=== PATIENT | female | born 1940 | race Caucasian/White ===

== ENCOUNTER 2020-03-29 21:32 | Inpatient (IN) | payer MEDICARE ==
[~2020-03-29] VITALS: Ht 160 cm; Wt 106.6 kg
[~2020-03-29 21:32] MED LIST: FUROSEMIDE20 M1 ORAL; LISINOPRIL5 MG ORAL; UNABLE TO RECALL
[2020-03-30] VITALS (7 sets, daily range): BP systolic 110–155; BP diastolic 56–85
[2020-03-30 00:33] LABS: APPEARANCE,URINE CLEAR; BILIRUBIN, URINE NEGATIVE (NEGATIVE); GLUCOSE, URINE (UA) NEGATIVE (NEGATIVE); KETONES,URINE NEGATIVE (NEGATIVE); LEUKOCYTE ESTERASE ,URINE 2+ (NEGATIVE); NITRITE,URINE POSITIVE (NEGATIVE); PH,URINE 5 (4.5-8.0); PROTEIN,URINE 1+ (NEGATIVE); UROBILINOGEN,URINE NORMAL MG/DL (0.0-1.0)
[2020-03-30 00:33] LABS: BASOPHILS % (AUTO) 0.6 % (0.0-2.0); EOSINOPHILS % (AUTO) 0.8 % (0.0-3.0); HEMATOCRIT 43.1 % (37.0-47.0); HEMOGLOBIN 14.5 G/DL (12.0-16.0); LYMPHOCYTES % (AUTO) 17.8 % (20.0-45.0); MEAN CORPUSCULAR VOLUME 82 FL (80-99); MONOCYTES % (AUTO) 10.1 % (1.0-10.0); NEUTROPHILS % (AUTO) 70.8 % (45.0-75.0); PLATELET COUNT 187 K/UL (150-450); RED BLOOD COUNT 5.24 M/UL (4.20-5.40); RED CELL DISTRIBUTION WIDTH 13.7 % (11.6-14.8); WHITE BLOOD COUNT 6.4 K/UL (4.8-10.8)
[2020-03-30 00:44] LABS: COLOR,URINE YELLOW
[2020-03-30 00:58] LABS: INR 1.1 (0.9-1.1)
[2020-03-30] MEDS ORDERED: cefTRIAXone 1 GM in NS 55 ML IVPB ONE (01:00)
--- NOTE | 2020-03-30 01:16 | Emergency Room Report ---
History of Present Illness General Chief Complaint: Dyspnea/Respdistress Source: Patient Present Illness HPI Patient is an 80-year-old female presented for increased cough and difficulty with breathing. Patient been sent in from long term. Patient's facility had apparently had increased coronavirus infections recently. Patient had recent positive coronavirus testing. Allergies: Coded Allergies: MORPHINE (Verified Allergy, Unknown, 10/27/19) Uncoded Allergies: TAPE (Allergy, Unknown, 10/27/19) COVID-19 Screening Contact w/high risk pt: Yes Recent Travel to affected area: No Experienced COVID-19 symptoms?: Yes COVID-19 Testing performed ANALYST MARKET INTELLIGENCE: Yes COVID-19 Screening: Positive COVID-19 COVID-19 Testing Source: NUCLEAR EQUIPMENT RESEARCH ENGINEER 03/29/2020 Patient History Past Medical History: see triage record Now: No Reviewed Nursing Documentation: PMH: Agreed; PSxH: Agreed Nursing Documentation-PMH Hx Cardiac Problems: Yes - 2013 bradycardic Hx Hypertension: Yes Hx Pacemaker: Yes Hx Diabetes: Yes Hx Cancer: No Hx Gastrointestinal Problems: Yes - gallstones Hx Neurological Problems: No Physical Exam Vital Signs Date Time Temp Pulse Resp B/P (MAP) Pulse Ox O2 Delivery O2 Flow Rate FiO2 03/29/20 21:35 98.1 98 21 124/73 (90) 94 Nasal Cannula 2.0 General Appearance: alert, Chronically Ill ENT: normal ENT inspection Neck: limited range of motion Respiratory: chest non-tender, rales Cardiovascular #1: normal inspection, no edema Gastrointestinal: normal inspection Musculoskeletal: normal inspection Neurologic: alert, motor strength/tone normal, cyber incident analyst III-XII nml as tested, other - confused Skin: no rash Medical Decision Making Diagnostic Impression: Primary Impression: Coronavirus infection Additional Impression: Pneumonia ER Course Patient presented for increased fever and cough. Differential diagnosis include was not limited to coronavirus infection, pneumonia, CHF among others. Because of complexity of patient's case laboratory tests and imaging studies were ordered. Patient was noted to be febrile as well as having diminished oxygen saturation. Patient had been started on oxygen by EMS. Patient was maintained on oxygen. She was given IV antibiotics. Dr. Adorno was contacted for inpatient management. Labs Test 03/30/20 00:00 03/30/20 00:10 White Blood Count 6.4 K/UL (4.8-10.8) Red Blood Count 5.24 M/UL (4.20-5.40) Hemoglobin 14.5 G/DL (12.0-16.0) Hematocrit 43.1 % (37.0-47.0) Mean Corpuscular Volume 82 FL (80-99) Mean Corpuscular Hemoglobin 27.7 PG (27.0-31.0) Mean Corpuscular Hemoglobin Concent 33.6 G/DL (32.0-36.0) Red Cell Distribution Width 13.7 % (11.6-14.8) Platelet Count 187 K/UL (150-450) Mean Platelet Volume 8.4 FL (6.5-10.1) Neutrophils (%) (Auto) 70.8 % (45.0-75.0) Lymphocytes (%) (Auto) 17.8 % (20.0-45.0) Monocytes (%) (Auto) 10.1 % (1.0-10.0) Eosinophils (%) (Auto) 0.8 % (0.0-3.0) Basophils (%) (Auto) 0.6 % (0.0-2.0) Prothrombin Time 11.6 SEC (9.30-11.50) Prothromb Time International Ratio 1.1 (0.9-1.1) Activated Partial Thromboplast Time 23 SEC (23-33) D-Dimer 2.17 mg/L FEU (0.00-0.49) Lactic Acid Level 1.00 mmol/L (0.4-2.0) Troponin I 0.011 ng/mL (0.000-0.056) Urine Color Yellow Urine Appearance Clear Urine pH 5 (4.5-8.0) Urine Specific [place] 1.015 (1.005-1.035) Urine Protein 1+ (NEGATIVE) Urine Glucose (UA) Negative (NEGATIVE) Urine Ketones Negative (NEGATIVE) Urine Blood 2+ (NEGATIVE) Urine Nitrite Positive (NEGATIVE) Urine Bilirubin Negative (NEGATIVE) Urine Urobilinogen Normal MG/DL (0.0-1.0) Urine Leukocyte Esterase 2+ (NEGATIVE) EKG Diagnostic Results Rate: normal Rhythm: NSR ST Segments: no acute changes Last Vital Signs Date Time Temp Pulse Resp B/P (MAP) Pulse Ox O2 Delivery O2 Flow Rate FiO2 03/30/20 00:00 98 21 Nasal Cannula 2.0 03/30/20 00:00 98.5 117/67 99 Status: unchanged Disposition: ADMITTED INPATIENT Condition: Serious Referrals: Kell Adorno M.D. (PCP) Carlos Galeano MD Mar 30, 2020 01:16
[2020-03-30 05:40] LABS: ALANINE AMINOTRANSFERASE 145 U/L (12-78); ALBUMIN 3.1 G/DL (3.4-5.0); ALBUMIN/GLOBULIN RATIO 0.7 (1.0-2.7); ALKALINE PHOSPHATASE 133 U/L (46-116); ANION GAP 8 mmol/L (5-15); ASPARTATE AMINO TRANSFERASE 128 U/L (15-37); BILIRUBIN,TOTAL 0.5 MG/DL (0.2-1.0); BLOOD UREA NITROGEN 48 mg/dL (7-18); CALCIUM 8.9 MG/DL (8.5-10.1); CARBON DIOXIDE 25 MMOL/L (21-32); CHLORIDE 97 MMOL/L (98-107); CKMB < 0.5 NG/ML (0.0-3.6); CREATINE KINASE 45 U/L (26-308); CREATININE 1.2 MG/DL (0.55-1.30); FERRITIN 493 NG/ML (8-388); LACTATE DEHYDROGENASE 405 U/L (81-234); POTASSIUM 4.8 MMOL/L (3.5-5.1); SODIUM 130 MMOL/L (136-145)
[2020-03-30] MEDS ORDERED: TYLENOL EXTRA500 MG ORAL (06:00)
[2020-03-30] MEDS ORDERED: GABAPENTIN600 MG ORAL (06:00)
[2020-03-30] MEDS ORDERED: LEXAPRO10 MG ORAL (06:00)
[2020-03-30] MEDS ORDERED: MELATONIN3 MG ORAL (06:00)
[2020-03-30] MEDS ORDERED: LIPITOR20 MG ORAL (06:00)
[2020-03-30] MEDS ORDERED: NORCO 5-325 TA1 EAC1 ORAL (06:00)
[2020-03-30] MEDS ORDERED: NOVOLOG100 UNITS1 SUBQ (06:00)
--- NOTE | 2020-03-30 08:43 | Consultation ---
History of Present Illness General Chief Complaint: Dyspnea/Respdistress Reason for Consultation: hyponatremia Present Illness HPI 80 year old female with history of HTN, HLD, Diastolic CHF, obesity, DMII was sent in from SNF facility where she resides for cough, sob and desaturation. She is pleasant, but poor historian. She is alert to self, but not time or place. She does know she lives in a fpc but can't tell me the name. She tells me she has 6 children all out of state. She denies chest pain but complains of sob and cough. Denies palpitations, abdominal pain, n/v or diarrhea. Allergies: Coded Allergies: MORPHINE (Verified Allergy, Unknown, 10/27/19) Uncoded Allergies: TAPE (Allergy, Unknown, 10/27/19) Medication History Scheduled Atorvastatin Calcium* (Lipitor*), 20 MG ORAL BEDTIME, (Reported) Escitalopram Oxalate* (Lexapro*), 10 MG ORAL DAILY, (Reported) Furosemide* (Lasix*), 20 MG ORAL DAILY, (Reported) Gabapentin* (Gabapentin*), 300 MG ORAL THREE TIMES A DAY, (Reported) Insulin Aspart (Novolog Flexpen), 0 SUBQ AC+HS, (Reported) Lisinopril (Lisinopril*), 10 MG ORAL DAILY, (Reported) Scheduled PRN Acetaminophen* (Tylenol Extra Strength*), 500 MG ORAL Q6H PRN for Mild Pain/Temp > 100.5, (Reported) Hydrocodone Bit/Acetaminophen 5-325* ([place] 5-325 Tablet*), 1 TAB ORAL Q4H PRN for For Pain, (Reported) Melatonin (Melatonin), 6 MG ORAL BEDTIME PRN for Insomnia, (Reported) Miscellaneous Medications [Unable To Recall], (Reported) Patient History Healthcare decision maker Resuscitation status Advanced Directive on File Review of Systems All Other Systems: negative except mentioned in HPI Physical Exam General Appearance: no apparent distress Lines, tubes and drains: peripheral HEENT: normocephalic, atraumatic Neck: non-tender, normal alignment Respiratory/Chest: chest wall non-tender, rhonchi - bilaterally Cardiovascular/Chest: normal peripheral pulses, normal rate, regular rhythm Abdomen: normal bowel sounds, non tender Extremities: normal range of motion, non-tender Neurologic: alert, oriented x 3 Last 24 Hour Vital Signs Date Time Temp Pulse Resp B/P (MAP) Pulse Ox O2 Delivery O2 Flow Rate FiO2 03/30/20 05:30 98.4 91 22 126/57 96 Nasal Cannula 2.0 03/30/20 03:00 98.5 92 20 129/56 99 Nasal Cannula 2.0 03/30/20 00:00 98 21 Nasal Cannula 2.0 03/30/20 00:00 98.5 94 20 117/67 99 Nasal Cannula 2.0 03/29/20 21:35 98.1 98 21 124/73 (90) 94 Nasal Cannula 2.0 Laboratory Tests Test 03/30/20 00:00 03/30/20 00:10 White Blood Count 6.4 K/UL (4.8-10.8) Red Blood Count 5.24 M/UL (4.20-5.40) Hemoglobin 14.5 G/DL (12.0-16.0) Hematocrit 43.1 % (37.0-47.0) Mean Corpuscular Volume 82 FL (80-99) Mean Corpuscular Hemoglobin 27.7 PG (27.0-31.0) Mean Corpuscular Hemoglobin Concent 33.6 G/DL (32.0-36.0) Red Cell Distribution Width 13.7 % (11.6-14.8) Platelet Count 187 K/UL (150-450) Mean Platelet Volume 8.4 FL (6.5-10.1) Neutrophils (%) (Auto) 70.8 % (45.0-75.0) Lymphocytes (%) (Auto) 17.8 % (20.0-45.0) L Monocytes (%) (Auto) 10.1 % (1.0-10.0) H Eosinophils (%) (Auto) 0.8 % (0.0-3.0) Basophils (%) (Auto) 0.6 % (0.0-2.0) Prothrombin Time 11.6 SEC (9.30-11.50) H Prothromb Time International Ratio 1.1 (0.9-1.1) Activated Partial Thromboplast Time 23 SEC (23-33) D-Dimer 2.17 mg/L FEU (0.00-0.49) H Sodium Level 130 MMOL/L (136-145) L Potassium Level 4.8 MMOL/L (3.5-5.1) Chloride Level 97 MMOL/L (98-107) L Carbon Dioxide Level 25 MMOL/L (21-32) Anion Gap 8 mmol/L (5-15) Blood Urea Nitrogen 48 mg/dL (7-18) H Creatinine 1.2 MG/DL (0.55-1.30) Estimat Glomerular Filtration Rate 43.0 mL/min (>60) Glucose Level 192 MG/DL (74-106) H Lactic Acid Level 1.00 mmol/L (0.4-2.0) Calcium Level 8.9 MG/DL (8.5-10.1) Ferritin 493 NG/ML (8-388) H Total Bilirubin 0.5 MG/DL (0.2-1.0) Aspartate Amino Transf (AST/SGOT) 128 U/L (15-37) H Alanine Aminotransferase (ALT/SGPT) 145 U/L (12-78) H Alkaline Phosphatase 133 U/L (46-116) H Lactate Dehydrogenase 405 U/L (81-234) H Total Creatine Kinase 45 U/L (26-308) Creatine Kinase MB < 0.5 NG/ML (0.0-3.6) Creatine Kinase MB Relative Index 1.1 Troponin I 0.011 ng/mL (0.000-0.056) C-Reactive Protein, Quantitative 3.9 mg/dL (0.00-0.90) H Pro-B-Type Natriuretic Peptide 564 pg/mL (0-125) H Total Protein 7.8 G/DL (6.4-8.2) Albumin 3.1 G/DL (3.4-5.0) L Globulin 4.7 g/dL Albumin/Globulin Ratio 0.7 (1.0-2.7) L Lipase 313 U/L (73-393) Urine Color Yellow Urine Appearance Clear Urine pH 5 (4.5-8.0) Urine Specific Lane 1.015 (1.005-1.035) Urine Protein 1+ (NEGATIVE) H Urine Glucose (UA) Negative (NEGATIVE) Urine Ketones Negative (NEGATIVE) Urine Blood 2+ (NEGATIVE) H Urine Nitrite Positive (NEGATIVE) H Urine Bilirubin Negative (NEGATIVE) Urine Urobilinogen Normal MG/DL (0.0-1.0) Urine Leukocyte Esterase 2+ (NEGATIVE) H Urine RBC 20-30 /HPF (0 - 2) H Urine WBC 30-40 /HPF (0 - 2) H Urine Squamous Epithelial Cells Few /LPF (NONE/OCC) Urine Bacteria Many /HPF (NONE) H Microbiology Date/Time Source Procedure Growth Status 03/30/20 07:30 Nasopharynx SARS-CoV-2 RdRp Gene Assay - Final Complete Height (Feet): 5 Height (Inches): 3.00 Weight (Pounds): 235 Assessment/Plan Diagnosis [place] I: #Hyponatremia- hypervolumic 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 Mar 30, 2020 08:43
--- NOTE | 2020-03-30 09:45 | History and Physical ---
History of Present Illness General Date patient seen: Mar 30, 2020 Reason for Hospitalization: Dyspnea/Respdistress Present Illness HPI 80 year old female with history of HTN, HLD, Diastolic CHF, obesity, DMII was sent in from SNF facility where she resides for cough, sob and desaturation. She is pleasant, but poor historian. She is alert to self, but not time or place. She does know she lives in a senior care but can't tell me the name. She tells me she has 6 children all out of state. She denies chest pain but complains of sob and cough. Denies palpitations, abdominal pain, n/v or diarrhea. Allergies: Coded Allergies: MORPHINE (Verified Allergy, Unknown, 10/27/19) Uncoded Allergies: TAPE (Allergy, Unknown, 10/27/19) COVID-19 Screening Contact w/high risk pt: Yes Recent Travel to affected area: No Experienced COVID-19 symptoms?: Yes Coronavirus symptoms experienc: Shortness of Breath Medication History Scheduled Atorvastatin Calcium* (Lipitor*), 20 MG ORAL BEDTIME, (Reported) Escitalopram Oxalate* (Lexapro*), 10 MG ORAL DAILY, (Reported) Furosemide* (Lasix*), 20 MG ORAL DAILY, (Reported) Gabapentin* (Gabapentin*), 300 MG ORAL THREE TIMES A DAY, (Reported) Insulin Aspart (Novolog Flexpen), 0 SUBQ AC+HS, (Reported) Lisinopril (Lisinopril*), 10 MG ORAL DAILY, (Reported) Scheduled PRN Acetaminophen* (Tylenol Extra Strength*), 500 MG ORAL Q6H PRN for Mild Pain/Temp > 100.5, (Reported) Hydrocodone Bit/Acetaminophen 5-325* ([place] 5-325 Tablet*), 1 TAB ORAL Q4H PRN for For Pain, (Reported) Melatonin (Melatonin), 6 MG ORAL BEDTIME PRN for Insomnia, (Reported) Miscellaneous Medications [Unable To Recall], (Reported) Patient History Limited by: medical condition History Provided By: Patient, Medical Record, EMS Healthcare decision maker Resuscitation status Advanced Directive on File Past Medical/Surgical History Past Medical/Surgical History: (1) Pneumonia (2) Coronavirus infection (3) COVID-19 Review of Systems Constitutional: Denies: no symptoms, see HPI, chills, sweats, fever, malaise, weakness, other Eye: Denies: no symptoms, see HPI, eye pain, blurred vision, tearing, double vision, nose pain, nose congestion, acuity changes, discharge, other ENT: Denies: no symptoms, see HPI, ear pain, ear discharge, nose pain, nose congestion, throat pain, throat swelling, mouth pain, hearing loss, nasal discharge, other Respiratory: Reports: cough, shortness of breath Cardiovascular: Denies: no symptoms, see HPI, chest pain, edema, palpitations, syncope, PND, other Gastrointestinal: Denies: no symptoms, see HPI, abdominal pain, constipation, diarrhea, nausea, vomiting, melena, hematemesis, other Genitourinary: Denies: no symptoms, see HPI, discharge, dysuria, frequency, hematuria, pain, retention, incontinence, urgency, vag bleed/dc, other Musculoskeletal: Denies: no symptoms, see HPI, back pain, gout, joint pain, joint swelling, muscle pain, muscle stiffness, other Skin: Denies: no symptoms, see HPI, rash, change in color, change in hair/nails, dryness, lesions, other Psychiatric: Denies: no symptoms, see HPI, prior hx, anxiety, depressed feelings, emotional problems, SI, HI, hallucinations, other Neurological: Denies: no symptoms, see HPI, headache, numbness, paresthesia, seizure, tingling, tremors, focal weakness, syncope, dizziness, other Endocrine: Denies: no symptoms, see HPI, excessive sweating, flushing, intolerance to temperature, increased thirst, increased urine, unexplained weight loss, other Hematologic/Lymphatic: Denies: no symptoms, see HPI, anemia, blood clots, easy bleeding, easy bruising, swollen glands, diathesis, other Physical Exam General Appearance: no apparent distress, alert Lines, tubes and drains: peripheral HEENT: normocephalic, atraumatic, anicteric, mucous membranes moist, PERRL, EOMI Neck: non-tender, normal alignment, supple Respiratory/Chest: chest wall non-tender, lungs clear, normal breath sounds, no respiratory distress Cardiovascular/Chest: normal peripheral pulses Abdomen: normal bowel sounds, non tender, soft Extremities: normal range of motion, non-tender, moderate edema Skin Exam: normal pigmentation Neurologic: facilities coordinator II-XII grossly normal, no motor/sensory deficits, abnormal gait, alert, responsive Last 24 Hour Vital Signs Date Time Temp Pulse Resp B/P (MAP) Pulse Ox O2 Delivery O2 Flow Rate FiO2 03/30/20 08:49 98.8 80 20 131/72 92 Nasal Cannula 2.0 03/30/20 05:30 98.4 91 22 126/57 96 Nasal Cannula 2.0 03/30/20 03:00 98.5 92 20 129/56 99 Nasal Cannula 2.0 03/30/20 00:00 98 21 Nasal Cannula 2.0 03/30/20 00:00 98.5 94 20 117/67 99 Nasal Cannula 2.0 03/29/20 21:35 98.1 98 21 124/73 (90) 94 Nasal Cannula 2.0 Laboratory Tests Test 03/30/20 00:00 03/30/20 00:10 White Blood Count 6.4 K/UL (4.8-10.8) Red Blood Count 5.24 M/UL (4.20-5.40) Hemoglobin 14.5 G/DL (12.0-16.0) Hematocrit 43.1 % (37.0-47.0) Mean Corpuscular Volume 82 FL (80-99) Mean Corpuscular Hemoglobin 27.7 PG (27.0-31.0) Mean Corpuscular Hemoglobin Concent 33.6 G/DL (32.0-36.0) Red Cell Distribution Width 13.7 % (11.6-14.8) Platelet Count 187 K/UL (150-450) Mean Platelet Volume 8.4 FL (6.5-10.1) Neutrophils (%) (Auto) 70.8 % (45.0-75.0) Lymphocytes (%) (Auto) 17.8 % (20.0-45.0) L Monocytes (%) (Auto) 10.1 % (1.0-10.0) H Eosinophils (%) (Auto) 0.8 % (0.0-3.0) Basophils (%) (Auto) 0.6 % (0.0-2.0) Prothrombin Time 11.6 SEC (9.30-11.50) H Prothromb Time International Ratio 1.1 (0.9-1.1) Activated Partial Thromboplast Time 23 SEC (23-33) D-Dimer 2.17 mg/L FEU (0.00-0.49) H Sodium Level 130 MMOL/L (136-145) L Potassium Level 4.8 MMOL/L (3.5-5.1) Chloride Level 97 MMOL/L (98-107) L Carbon Dioxide Level 25 MMOL/L (21-32) Anion Gap 8 mmol/L (5-15) Blood Urea Nitrogen 48 mg/dL (7-18) H Creatinine 1.2 MG/DL (0.55-1.30) Estimat Glomerular Filtration Rate 43.0 mL/min (>60) Glucose Level 192 MG/DL (74-106) H Lactic Acid Level 1.00 mmol/L (0.4-2.0) Calcium Level 8.9 MG/DL (8.5-10.1) Ferritin 493 NG/ML (8-388) H Total Bilirubin 0.5 MG/DL (0.2-1.0) Aspartate Amino Transf (AST/SGOT) 128 U/L (15-37) H Alanine Aminotransferase (ALT/SGPT) 145 U/L (12-78) H Alkaline Phosphatase 133 U/L (46-116) H Lactate Dehydrogenase 405 U/L (81-234) H Total Creatine Kinase 45 U/L (26-308) Creatine Kinase MB < 0.5 NG/ML (0.0-3.6) Creatine Kinase MB Relative Index 1.1 Troponin I 0.011 ng/mL (0.000-0.056) C-Reactive Protein, Quantitative 3.9 mg/dL (0.00-0.90) H Pro-B-Type Natriuretic Peptide 564 pg/mL (0-125) H Total Protein 7.8 G/DL (6.4-8.2) Albumin 3.1 G/DL (3.4-5.0) L Globulin 4.7 g/dL Albumin/Globulin Ratio 0.7 (1.0-2.7) L Lipase 313 U/L (73-393) Urine Color Yellow Urine Appearance Clear Urine pH 5 (4.5-8.0) Urine Specific [place] 1.015 (1.005-1.035) Urine Protein 1+ (NEGATIVE) H Urine Glucose (UA) Negative (NEGATIVE) Urine Ketones Negative (NEGATIVE) Urine Blood 2+ (NEGATIVE) H Urine Nitrite Positive (NEGATIVE) H Urine Bilirubin Negative (NEGATIVE) Urine Urobilinogen Normal MG/DL (0.0-1.0) Urine Leukocyte Esterase 2+ (NEGATIVE) H Urine RBC 20-30 /HPF (0 - 2) H Urine WBC 30-40 /HPF (0 - 2) H Urine Squamous Epithelial Cells Few /LPF (NONE/OCC) Urine Bacteria Many /HPF (NONE) H Microbiology Date/Time Source Procedure Growth Status 03/30/20 07:30 Nasopharynx SARS-CoV-2 RdRp Gene Assay - Final Complete Height (Feet): 5 Height (Inches): 3.00 Weight (Pounds): 235 Medications Current Medications Medications (Trade) Dose Ordered Sig/Tiburcio Route PRN Reason Start Time Stop Time Status Last Admin Dose Admin Albuterol/ Ipratropium (Combivent Respimat) 1 puff Q6HR INH 03/30/20 12:00 04/29/20 11:59 Heparin Sodium (Porcine) (Heparin 5000 units/ml) 5,000 units EVERY 12 HOURS SUBQ 03/30/20 21:00 05/14/20 20:59 Assessment/Plan Status: stable Assessment/Plan: A/ 1.Acute hypoxic respiratory failure 2.Covid 19 Pneumonia 3. Acute on chronic diastolic CHF 4.UTI 5.Elevated LFTs 6.Hyponatremia 7.MARIELY vs MARIELY on CKD P/ -Admit to telemetry- contact plus isolation -O2 via NC to keep sats >94% -Dexa and remdisivr per ID -Ceftriaxone for UTI- follow up urine cultures -Nephrology consult -Pulmonary consult -ID consult -IV lasix 20 mg BID, monitor volume status -follow up cxr -Hold lipitor for elevated AST/ALT I spent 75 minutes on this encounter. > 50% spent on counselling and care coordination. Plan of care d/w patient and consultants. I will locate patient's family to update them Mayito Peña M.D. Mar 30, 2020 09:45
[2020-03-30] MEDS: Lisinopril 10mg tab ORAL SCH (11:16)
[2020-03-30] MEDS ORDERED: NovoLOG Insulin Flexpen SUBQ SCH ×4 (11:30→16:50)
[2020-03-30] MEDS: NovoLOG Insulin Flexpen SUBQ SCH ×3 (11:41→21:39)
[2020-03-30] MEDS ORDERED: Levemir Flexpen SUBQ SCH (11:55)
[2020-03-30] MEDS ORDERED: Albuterol/Ipratropium 3ml neb HHN SCH (13:00)
--- NOTE | 2020-03-30 15:51 | Cardiac Electrophysiology PN ---
Subjective Subjective DW RN to get the info re patients pacer brand and implant from [facility] Objective Last 24 Hour Vital Signs Date Time Temp Pulse Resp B/P (MAP) Pulse Ox O2 Delivery O2 Flow Rate FiO2 03/30/20 12:00 97.5 101 20 135/76 (95) 98 03/30/20 12:00 85 03/30/20 11:16 155/85 03/30/20 09:28 Nasal Cannula 2.0 03/30/20 09:00 97.5 100 20 155/85 (108) 98 03/30/20 08:49 98.8 80 20 131/72 92 Nasal Cannula 2.0 03/30/20 05:30 98.4 91 22 126/57 96 Nasal Cannula 2.0 03/30/20 03:00 98.5 92 20 129/56 99 Nasal Cannula 2.0 03/30/20 00:00 98 21 Nasal Cannula 2.0 03/30/20 00:00 98.5 94 20 117/67 99 Nasal Cannula 2.0 03/29/20 21:35 98.1 98 21 124/73 (90) 94 Nasal Cannula 2.0 Laboratory Tests Test 03/30/20 00:00 03/30/20 00:10 03/30/20 11:18 03/30/20 11:33 White Blood Count 6.4 K/UL (4.8-10.8) Red Blood Count 5.24 M/UL (4.20-5.40) Hemoglobin 14.5 G/DL (12.0-16.0) Hematocrit 43.1 % (37.0-47.0) Mean Corpuscular Volume 82 FL (80-99) Mean Corpuscular Hemoglobin 27.7 PG (27.0-31.0) Mean Corpuscular Hemoglobin Concent 33.6 G/DL (32.0-36.0) Red Cell Distribution Width 13.7 % (11.6-14.8) Platelet Count 187 K/UL (150-450) Mean Platelet Volume 8.4 FL (6.5-10.1) Neutrophils (%) (Auto) 70.8 % (45.0-75.0) Lymphocytes (%) (Auto) 17.8 % (20.0-45.0) L Monocytes (%) (Auto) 10.1 % (1.0-10.0) H Eosinophils (%) (Auto) 0.8 % (0.0-3.0) Basophils (%) (Auto) 0.6 % (0.0-2.0) Prothrombin Time 11.6 SEC (9.30-11.50) H Prothromb Time International Ratio 1.1 (0.9-1.1) Activated Partial Thromboplast Time 23 SEC (23-33) D-Dimer 2.17 mg/L FEU (0.00-0.49) H Sodium Level 130 MMOL/L (136-145) L Potassium Level 4.8 MMOL/L (3.5-5.1) Chloride Level 97 MMOL/L (98-107) L Carbon Dioxide Level 25 MMOL/L (21-32) Anion Gap 8 mmol/L (5-15) Blood Urea Nitrogen 48 mg/dL (7-18) H Creatinine 1.2 MG/DL (0.55-1.30) Estimat Glomerular Filtration Rate 43.0 mL/min (>60) Glucose Level 192 MG/DL (74-106) H Lactic Acid Level 1.00 mmol/L (0.4-2.0) Calcium Level 8.9 MG/DL (8.5-10.1) Ferritin 493 NG/ML (8-388) H Total Bilirubin 0.5 MG/DL (0.2-1.0) Aspartate Amino Transf (AST/SGOT) 128 U/L (15-37) H Alanine Aminotransferase (ALT/SGPT) 145 U/L (12-78) H Alkaline Phosphatase 133 U/L (46-116) H Lactate Dehydrogenase 405 U/L (81-234) H Total Creatine Kinase 45 U/L (26-308) Creatine Kinase MB < 0.5 NG/ML (0.0-3.6) Creatine Kinase MB Relative Index 1.1 Troponin I 0.011 ng/mL (0.000-0.056) C-Reactive Protein, Quantitative 3.9 mg/dL (0.00-0.90) H Pro-B-Type Natriuretic Peptide 564 pg/mL (0-125) H Total Protein 7.8 G/DL (6.4-8.2) Albumin 3.1 G/DL (3.4-5.0) L Globulin 4.7 g/dL Albumin/Globulin Ratio 0.7 (1.0-2.7) L Lipase 313 U/L (73-393) Urine Color Yellow Urine Appearance Clear Urine pH 5 (4.5-8.0) Urine Specific [place] 1.015 (1.005-1.035) Urine Protein 1+ (NEGATIVE) H Urine Glucose (UA) Negative (NEGATIVE) Urine Ketones Negative (NEGATIVE) Urine Blood 2+ (NEGATIVE) H Urine Nitrite Positive (NEGATIVE) H Urine Bilirubin Negative (NEGATIVE) Urine Urobilinogen Normal MG/DL (0.0-1.0) Urine Leukocyte Esterase 2+ (NEGATIVE) H Urine RBC 20-30 /HPF (0 - 2) H Urine WBC 30-40 /HPF (0 - 2) H Urine Squamous Epithelial Cells Few /LPF (NONE/OCC) Urine Bacteria Many /HPF (NONE) H POC Whole Blood Glucose 434 MG/DL (74-106) H 468 MG/DL (74-106) H Test 03/30/20 11:51 03/30/20 12:52 03/30/20 13:54 POC Whole Blood Glucose 489 MG/DL (74-106) H 489 MG/DL (74-106) H Pending Microbiology Date/Time Source Procedure Growth Status 03/30/20 07:30 Nasopharynx SARS-CoV-2 RdRp Gene Assay - Final Complete Rafiq Cote MD Mar 30, 2020 15:51
--- NOTE | 2020-03-30 16:15 | Consultation ---
DATE OF CONSULTATION: 03/30/2020 PULMONARY CONSULTATION REFERRING PHYSICIAN: Kell Adorno M.D. REASON FOR CONSULTATION: Cough and shortness of breath. HISTORY OF PRESENT ILLNESS: This is an 80[facility]-old [facility] who is a very poor historian. She has a history of hypertension, hyperlipidemia, heart failure, obesity, and diabetes mellitus. She was sent in from the facility with hypoxemia and desaturation. The patient was seen and evaluated in the emergency room. She was noted to be initially hypoxic per documentation. However, in the ER, she was 100% on 2 L oxygen. The patient underwent imaging studies, which per ER report were abnormal, although I have not been able to review these records myself. The patient is currently admitted to the hospital for subsequent management and care. PAST HISTORY: Hyperlipidemia, psych disorder. MEDICATIONS: Lexapro, Lasix, gabapentin, insulin, and lisinopril. ALLERGIES: Morphine and tape. REVIEW OF SYSTEMS: Unreliable. PHYSICAL EXAMINATION: GENERAL: An elderly female. HEENT: Unremarkable. LUNGS: Clear breath sounds bilaterally. ABDOMEN: Soft. There is no edema. NEUROLOGIC: Nonfocal. VITAL SIGNS: Blood pressure is 120/50, heart rate 94, respirations 20. She is afebrile. O2 sat 97% on 2 L oxygen. LABORATORY DATA: Lab testing shows normal CBC and BMP except for the glucose of 434. She has elevated AST and ALT, alkaline phosphatase being 133, LDH 405. CRP 3.9. Coags notable for D-dimer of 2.1. Urinalysis shows multiple pus cells. Her COVID-19 rapid gene assay is positive. IMPRESSION: 1. COVID-19 pneumonia. 2. History of hypoxemia. 3. Diabetes mellitus. 4. Hypertension. 5. Hyperlipidemia. 6. Asthma. DISCUSSION: Agree with admission and care at this time. I will defer the use of remdesivir to ID specialist. She is notably on Combivent, which I will continue, as well as home medications. DVT prophylaxis with heparin subcu. Hold off on steroids given her diabetes, although I note she has received a single dose yesterday. Currently, with minimal hypoxemia, I will hold off on steroids. Defer use of remdesivir to ID. We will follow. Lorne Hightower M.D. DR: MARCELL JOB#: [id number] CC:
[2020-03-30] MEDS: Levemir Flexpen SUBQ SCH (16:18)
--- NOTE | 2020-03-30 18:15 | Consultation ---
DATE OF CONSULTATION: 03/30/2020 CARDIOLOGY CONSULTATION REFERRING PHYSICIAN: Kell Adorno M.D. REASON FOR CONSULTATION: Management of hypertension and congestive heart failure. HISTORY OF PRESENT ILLNESS: The patient is an 80-year-old lady with history of hypertension, diabetes, hyperlipidemia, diastolic congestive heart failure, obesity, who was sent from a long-term facility for cough and shortness of breath and desaturation. The patient is alert to self, but not to place or time, and she is a very poor historian. She has . The patient does not have any chest pain, but has shortness of breath and cough. The patient was admitted for COVID-19 and a cardiology consultation was obtained for further evaluation and management. REVIEW OF SYSTEMS: Negative other than what was mentioned in history of present illness. PAST MEDICAL HISTORY: As mentioned above. FAMILY HISTORY: Noncontributory. SOCIAL HISTORY: She lives in a shelter. Does not smoke or drink alcohol. PHYSICAL EXAMINATION: VITAL SIGNS: Blood pressure 137/56, pulse is 101, respirations 18, temperature 97.5. HEAD AND NECK: Some mild JVD. LUNGS: Coarse rhonchi. CARDIOVASCULAR: Regular S1 and S2 with no gallop or murmur. ABDOMEN: Soft. EXTREMITIES: Mild to moderate edema. LABORATORY AND DIAGNOSTIC DATA: Labs show white count of 6.4, hematocrit 14.1, hematocrit 43.1, platelet count 187. Sodium is 130, potassium is 4.8, BUN of 48, creatinine 1.2, and glucose of 192. Troponin is negative. Ferritin is 493. LDH is 405. BNP is 564. ASSESSMENT AND PLAN: 1. Congestive heart failure due to diastolic dysfunction with BNP of 564. I will add Lasix 20 mg IV b.i.d. We will get an echocardiogram to evaluate for ejection fraction and wall motion abnormality. 2. Hypertension, on Lasix 20 mg IV b.i.d. and lisinopril 10 mg daily and p.r.n. hydralazine. 3. COVID pneumonia, on dexamethasone. 4. Diabetes, on insulin. 5. Hyperlipidemia, on Lipitor. Thank you very much for allowing me to participate in the care of this patient. Please do not hesitate to contact me for any questions regarding my evaluation. Rafiq Cote M.D. DR: [place] JOB#: [id number] CC:
--- NOTE | 2020-03-30 18:36 | Infectious Diseases Prog Note ---
Assessment/Plan Assessment/Plan Full consult dictated: A) 1) uti 2) covid-19 infection 3) ? hypoxic - saturations stable on 2 liters, ? chf as cause (elevated bnp) 4) pmh noted 5) allergies - morphine, tape P) 1) ceftriaxone 2) monitor closely and hypoxia worsens then consider steroids and remdesivir 3) d/w Dr. Ghosh 4) monitor labs and chest x-ray, crp ordered 5) thank you Subjective Allergies: Coded Allergies: MORPHINE (Verified Allergy, Unknown, 10/27/19) Uncoded Allergies: TAPE (Allergy, Unknown, 10/27/19) Objective Last 24 Hour Vital Signs Date Time Temp Pulse Resp B/P (MAP) Pulse Ox O2 Delivery O2 Flow Rate FiO2 03/30/20 16:00 98.2 83 20 110/67 (81) 94 03/30/20 16:00 82 03/30/20 12:00 97.5 101 20 135/76 (95) 98 03/30/20 12:00 85 03/30/20 11:16 155/85 03/30/20 09:28 Nasal Cannula 2.0 03/30/20 09:00 97.5 100 20 155/85 (108) 98 03/30/20 08:49 98.8 80 20 131/72 92 Nasal Cannula 2.0 03/30/20 05:30 98.4 91 22 126/57 96 Nasal Cannula 2.0 03/30/20 03:00 98.5 92 20 129/56 99 Nasal Cannula 2.0 03/30/20 00:00 98 21 Nasal Cannula 2.0 03/30/20 00:00 98.5 94 20 117/67 99 Nasal Cannula 2.0 03/29/20 21:35 98.1 98 21 124/73 (90) 94 Nasal Cannula 2.0 Height (Feet): 5 Height (Inches): 3.00 Weight (Pounds): 235 Microbiology Date/Time Source Procedure Growth Status 03/30/20 07:30 Nasopharynx SARS-CoV-2 RdRp Gene Assay - Final Complete Laboratory Tests Test 03/30/20 00:00 03/30/20 00:10 03/30/20 11:18 03/30/20 11:33 White Blood Count 6.4 K/UL (4.8-10.8) Red Blood Count 5.24 M/UL (4.20-5.40) Hemoglobin 14.5 G/DL (12.0-16.0) Hematocrit 43.1 % (37.0-47.0) Mean Corpuscular Volume 82 FL (80-99) Mean Corpuscular Hemoglobin 27.7 PG (27.0-31.0) Mean Corpuscular Hemoglobin Concent 33.6 G/DL (32.0-36.0) Red Cell Distribution Width 13.7 % (11.6-14.8) Platelet Count 187 K/UL (150-450) Mean Platelet Volume 8.4 FL (6.5-10.1) Neutrophils (%) (Auto) 70.8 % (45.0-75.0) Lymphocytes (%) (Auto) 17.8 % (20.0-45.0) L Monocytes (%) (Auto) 10.1 % (1.0-10.0) H Eosinophils (%) (Auto) 0.8 % (0.0-3.0) Basophils (%) (Auto) 0.6 % (0.0-2.0) Prothrombin Time 11.6 SEC (9.30-11.50) H Prothromb Time International Ratio 1.1 (0.9-1.1) Activated Partial Thromboplast Time 23 SEC (23-33) D-Dimer 2.17 mg/L FEU (0.00-0.49) H Sodium Level 130 MMOL/L (136-145) L Potassium Level 4.8 MMOL/L (3.5-5.1) Chloride Level 97 MMOL/L (98-107) L Carbon Dioxide Level 25 MMOL/L (21-32) Anion Gap 8 mmol/L (5-15) Blood Urea Nitrogen 48 mg/dL (7-18) H Creatinine 1.2 MG/DL (0.55-1.30) Estimat Glomerular Filtration Rate 43.0 mL/min (>60) Glucose Level 192 MG/DL (74-106) H Lactic Acid Level 1.00 mmol/L (0.4-2.0) Calcium Level 8.9 MG/DL (8.5-10.1) Ferritin 493 NG/ML (8-388) H Total Bilirubin 0.5 MG/DL (0.2-1.0) Aspartate Amino Transf (AST/SGOT) 128 U/L (15-37) H Alanine Aminotransferase (ALT/SGPT) 145 U/L (12-78) H Alkaline Phosphatase 133 U/L (46-116) H Lactate Dehydrogenase 405 U/L (81-234) H Total Creatine Kinase 45 U/L (26-308) Creatine Kinase MB < 0.5 NG/ML (0.0-3.6) Creatine Kinase MB Relative Index 1.1 Troponin I 0.011 ng/mL (0.000-0.056) C-Reactive Protein, Quantitative 3.9 mg/dL (0.00-0.90) H Pro-B-Type Natriuretic Peptide 564 pg/mL (0-125) H Total Protein 7.8 G/DL (6.4-8.2) Albumin 3.1 G/DL (3.4-5.0) L Globulin 4.7 g/dL Albumin/Globulin Ratio 0.7 (1.0-2.7) L Lipase 313 U/L (73-393) Urine Color Yellow Urine Appearance Clear Urine pH 5 (4.5-8.0) Urine Specific [place] 1.015 (1.005-1.035) Urine Protein 1+ (NEGATIVE) H Urine Glucose (UA) Negative (NEGATIVE) Urine Ketones Negative (NEGATIVE) Urine Blood 2+ (NEGATIVE) H Urine Nitrite Positive (NEGATIVE) H Urine Bilirubin Negative (NEGATIVE) Urine Urobilinogen Normal MG/DL (0.0-1.0) Urine Leukocyte Esterase 2+ (NEGATIVE) H Urine RBC 20-30 /HPF (0 - 2) H Urine WBC 30-40 /HPF (0 - 2) H Urine Squamous Epithelial Cells Few /LPF (NONE/OCC) Urine Bacteria Many /HPF (NONE) H POC Whole Blood Glucose 434 MG/DL (74-106) H 468 MG/DL (74-106) H Test 03/30/20 11:51 03/30/20 12:52 03/30/20 13:54 03/30/20 16:03 POC Whole Blood Glucose 489 MG/DL (74-106) H 489 MG/DL (74-106) H Pending 394 MG/DL (74-106) H Test 03/30/20 17:37 POC Whole Blood Glucose 324 MG/DL (74-106) H Current Medications Medications (Trade) Dose Ordered Sig/Tiburcio Route PRN Reason Start Time Stop Time Status Last Admin Dose Admin Acetaminophen (Tylenol) 650 mg Q6H PRN ORAL For Pain 03/30/20 10:30 04/29/20 10:29 Albuterol/ Ipratropium (Combivent Respimat) 1 puff Q6HR INH 03/30/20 12:00 04/29/20 11:59 03/30/20 17:32 Dextrose (Dextrose 50%) 25 ml Q30M PRN IV Hypoglycemia 03/30/20 10:30 06/28/20 10:29 Dextrose (Dextrose 50%) 50 ml Q30M PRN IV Hypoglycemia 03/30/20 10:30 06/28/20 10:29 Escitalopram Oxalate (Lexapro) 10 mg DAILY ORAL 03/30/20 10:30 04/29/20 10:29 03/30/20 11:16 Furosemide (Lasix) 20 mg EVERY 12 HOURS IV 03/30/20 11:15 04/29/20 11:14 03/30/20 11:23 Gabapentin (Neurontin) 300 mg THREE TIMES A DAY ORAL 03/30/20 13:00 04/29/20 12:59 03/30/20 17:32 Heparin Sodium (Porcine) (Heparin 5000 units/ml) 5,000 units EVERY 12 HOURS SUBQ 03/30/20 21:00 05/14/20 20:59 Hydralazine HCl (Apresoline) 10 mg Q4H PRN IV For High Blood Pressure 03/30/20 10:45 06/28/20 10:44 Insulin Aspart (NovoLOG) BEFORE MEALS AND HS SUBQ 03/30/20 11:30 06/28/20 11:29 03/30/20 16:18 Insulin Detemir (Levemir) 10 units DAILY SUBQ 03/30/20 16:00 06/28/20 15:59 03/30/20 16:18 Lisinopril (ZestriL) 10 mg DAILY ORAL 03/30/20 10:30 04/29/20 10:29 03/30/20 11:16 Avelino Puckett MD Mar 30, 2020 18:36
--- NOTE | 2020-03-30 19:10 | Diagnostic Imaging Report ---
Indication: Shortness of breath Technique: One view of the chest Comparison: 10/27/2019 Findings: The heart is mildly enlarged. Left chest pacemaker again demonstrated. There is bilateral predominantly perihilar interstitial and airspace disease, likely edema, infiltrates also possible. The left lateral hemidiaphragm is obscured, pleural fluid likely. Impression: Cardiomegaly Bilateral infiltrates versus edema Probable left pleural effusion
--- NOTE | 2020-03-30 19:49 | Consultation ---
History of Present Illness General Date patient seen: Mar 30, 2020 Reason for Hospitalization: Dyspnea/Respdistress Present Illness HPI 80F recent history of COVID infection presented with cough and respiratory insufficiency admitted for care and management. on admission noted to have abnormal lfts. surgery called to evaluate and assist with care. abd pain intermittent with grimace upon palpation. no n/v//fc. +flatus and BM Allergies: Coded Allergies: MORPHINE (Verified Allergy, Unknown, 10/27/19) Uncoded Allergies: TAPE (Allergy, Unknown, 10/27/19) COVID-19 Screening Contact w/high risk pt: Yes Recent Travel to affected area: No Experienced COVID-19 symptoms?: Yes Coronavirus symptoms experienc: Fatigue, Runny Nose, Diarrhea Medication History Scheduled Atorvastatin Calcium* (Lipitor*), 20 MG ORAL BEDTIME, (Reported) Escitalopram Oxalate* (Lexapro*), 10 MG ORAL DAILY, (Reported) Furosemide* (Lasix*), 20 MG ORAL DAILY, (Reported) Gabapentin* (Gabapentin*), 300 MG ORAL THREE TIMES A DAY, (Reported) Insulin Aspart (Novolog Flexpen), 0 SUBQ AC+HS, (Reported) Lisinopril (Lisinopril*), 10 MG ORAL DAILY, (Reported) Scheduled PRN Acetaminophen* (Tylenol Extra Strength*), 500 MG ORAL Q6H PRN for Mild Pain/Temp > 100.5, (Reported) Hydrocodone Bit/Acetaminophen 5-325* (Left Hand 5-325 Tablet*), 1 TAB ORAL Q4H PRN for For Pain, (Reported) Melatonin (Melatonin), 6 MG ORAL BEDTIME PRN for Insomnia, (Reported) Miscellaneous Medications [Unable To Recall], (Reported) Patient History Limited by: medical condition History Provided By: Medical Record, PMD Healthcare decision maker Resuscitation status Advanced Directive on File Past Medical/Surgical History Past Medical/Surgical History: (1) Abnormal LFTs (2) Pneumonia (3) Coronavirus infection (4) COVID-19 Review of Systems Review of Symptoms General ROS: no weight loss or fever Psychological ROS: no depression or mood changes, no memory loss Ophthalmic ROS: no visual changes or eye irritation ENT ROS: no nasal congestion, hearing loss, dizziness Allergy and Immunology ROS: no allergic symptoms or urticaria Hematological and Lymphatic ROS: no swollen glands, unusual bleeding or bruising Endocrine ROS: no polyuria, polydipsia, weight changes, temperature intolerance Respiratory ROS: no cough, shortness of breath, or wheezing Cardiovascular ROS: no chest pain or dyspnea on exertion Gastrointestinal ROS: denies abdominal pain, bright red blood in stool. Musculoskeletal ROS: no myalgias or arthralgias Neurological ROS: no TIA or stroke symptoms Dermatological ROS: no new or changing skin lesions, rashes or pruritis Physical Exam Physical Exam General appearance: alert, cooperative, no distress, appears stated age Head: Normocephalic, without obvious abnormality, atraumatic Eyes: conjunctivae/corneas clear. PERRL, EOM's intact. Fundi benign Throat: Lips, mucosa, and tongue normal. Teeth and gums normal Neck: supple, symmetrical, trachea midline, no adenopathy, thyroid: not enlarged, symmetric, no tenderness/mass/nodules, no carotid bruit and no JVD Lungs: clear to auscultation bilaterally Heart: regular rate and rhythm, S1, S2 normal, no murmur, click, rub or gallop Abdomen: soft, non-tender. Bowel sounds normal. No masses, no organomegaly Extremities: extremities normal, atraumatic, no cyanosis or edema Pulses: 2+ and symmetric Skin: Skin color, texture, turgor normal. No rashes or lesions Neurologic: Grossly normal Last 24 Hour Vital Signs Date Time Temp Pulse Resp B/P (MAP) Pulse Ox O2 Delivery O2 Flow Rate FiO2 03/30/20 16:00 98.2 83 20 110/67 (81) 94 03/30/20 16:00 82 03/30/20 12:00 97.5 101 20 135/76 (95) 98 03/30/20 12:00 85 03/30/20 11:16 155/85 03/30/20 09:28 Nasal Cannula 2.0 03/30/20 09:00 97.5 100 20 155/85 (108) 98 03/30/20 08:49 98.8 80 20 131/72 92 Nasal Cannula 2.0 03/30/20 05:30 98.4 91 22 126/57 96 Nasal Cannula 2.0 03/30/20 03:00 98.5 92 20 129/56 99 Nasal Cannula 2.0 03/30/20 00:00 98 21 Nasal Cannula 2.0 03/30/20 00:00 98.5 94 20 117/67 99 Nasal Cannula 2.0 03/29/20 21:35 98.1 98 21 124/73 (90) 94 Nasal Cannula 2.0 Laboratory Tests Test 03/30/20 00:00 03/30/20 00:10 03/30/20 11:18 03/30/20 11:33 White Blood Count 6.4 K/UL (4.8-10.8) Red Blood Count 5.24 M/UL (4.20-5.40) Hemoglobin 14.5 G/DL (12.0-16.0) Hematocrit 43.1 % (37.0-47.0) Mean Corpuscular Volume 82 FL (80-99) Mean Corpuscular Hemoglobin 27.7 PG (27.0-31.0) Mean Corpuscular Hemoglobin Concent 33.6 G/DL (32.0-36.0) Red Cell Distribution Width 13.7 % (11.6-14.8) Platelet Count 187 K/UL (150-450) Mean Platelet Volume 8.4 FL (6.5-10.1) Neutrophils (%) (Auto) 70.8 % (45.0-75.0) Lymphocytes (%) (Auto) 17.8 % (20.0-45.0) L Monocytes (%) (Auto) 10.1 % (1.0-10.0) H Eosinophils (%) (Auto) 0.8 % (0.0-3.0) Basophils (%) (Auto) 0.6 % (0.0-2.0) Prothrombin Time 11.6 SEC (9.30-11.50) H Prothromb Time International Ratio 1.1 (0.9-1.1) Activated Partial Thromboplast Time 23 SEC (23-33) D-Dimer 2.17 mg/L FEU (0.00-0.49) H Sodium Level 130 MMOL/L (136-145) L Potassium Level 4.8 MMOL/L (3.5-5.1) Chloride Level 97 MMOL/L (98-107) L Carbon Dioxide Level 25 MMOL/L (21-32) Anion Gap 8 mmol/L (5-15) Blood Urea Nitrogen 48 mg/dL (7-18) H Creatinine 1.2 MG/DL (0.55-1.30) Estimat Glomerular Filtration Rate 43.0 mL/min (>60) Glucose Level 192 MG/DL (74-106) H Lactic Acid Level 1.00 mmol/L (0.4-2.0) Calcium Level 8.9 MG/DL (8.5-10.1) Ferritin 493 NG/ML (8-388) H Total Bilirubin 0.5 MG/DL (0.2-1.0) Aspartate Amino Transf (AST/SGOT) 128 U/L (15-37) H Alanine Aminotransferase (ALT/SGPT) 145 U/L (12-78) H Alkaline Phosphatase 133 U/L (46-116) H Lactate Dehydrogenase 405 U/L (81-234) H Total Creatine Kinase 45 U/L (26-308) Creatine Kinase MB < 0.5 NG/ML (0.0-3.6) Creatine Kinase MB Relative Index 1.1 Troponin I 0.011 ng/mL (0.000-0.056) C-Reactive Protein, Quantitative 3.9 mg/dL (0.00-0.90) H Pro-B-Type Natriuretic Peptide 564 pg/mL (0-125) H Total Protein 7.8 G/DL (6.4-8.2) Albumin 3.1 G/DL (3.4-5.0) L Globulin 4.7 g/dL Albumin/Globulin Ratio 0.7 (1.0-2.7) L Lipase 313 U/L (73-393) Urine Color Yellow Urine Appearance Clear Urine pH 5 (4.5-8.0) Urine Specific [place] 1.015 (1.005-1.035) Urine Protein 1+ (NEGATIVE) H Urine Glucose (UA) Negative (NEGATIVE) Urine Ketones Negative (NEGATIVE) Urine Blood 2+ (NEGATIVE) H Urine Nitrite Positive (NEGATIVE) H Urine Bilirubin Negative (NEGATIVE) Urine Urobilinogen Normal MG/DL (0.0-1.0) Urine Leukocyte Esterase 2+ (NEGATIVE) H Urine RBC 20-30 /HPF (0 - 2) H Urine WBC 30-40 /HPF (0 - 2) H Urine Squamous Epithelial Cells Few /LPF (NONE/OCC) Urine Bacteria Many /HPF (NONE) H POC Whole Blood Glucose 434 MG/DL (74-106) H 468 MG/DL (74-106) H Test 03/30/20 11:51 03/30/20 12:52 03/30/20 13:54 03/30/20 16:03 POC Whole Blood Glucose 489 MG/DL (74-106) H 489 MG/DL (74-106) H Pending 394 MG/DL (74-106) H Test 03/30/20 17:37 POC Whole Blood Glucose 324 MG/DL (74-106) H Microbiology Date/Time Source Procedure Growth Status 03/30/20 07:30 Nasopharynx SARS-CoV-2 RdRp Gene Assay - Final Complete Height (Feet): 5 Height (Inches): 3.00 Weight (Pounds): 235 Medications Current Medications Medications (Trade) Dose Ordered Sig/Tiburcio Route PRN Reason Start Time Stop Time Status Last Admin Dose Admin Acetaminophen (Tylenol) 650 mg Q6H PRN ORAL For Pain 03/30/20 10:30 04/29/20 10:29 Albuterol/ Ipratropium (Combivent Respimat) 1 puff Q6HR INH 03/30/20 12:00 04/29/20 11:59 03/30/20 17:32 Ceftriaxone Sodium 1 gm/ Dextrose 50 ml @ 100 mls/hr Q24H IVPB 03/31/20 01:00 04/07/20 00:59 Dextrose (Dextrose 50%) 25 ml Q30M PRN IV Hypoglycemia 03/30/20 10:30 06/28/20 10:29 Dextrose (Dextrose 50%) 50 ml Q30M PRN IV Hypoglycemia 03/30/20 10:30 06/28/20 10:29 Escitalopram Oxalate (Lexapro) 10 mg DAILY ORAL 03/30/20 10:30 04/29/20 10:29 03/30/20 11:16 Furosemide (Lasix) 20 mg EVERY 12 HOURS IV 03/30/20 11:15 04/29/20 11:14 03/30/20 11:23 Gabapentin (Neurontin) 300 mg THREE TIMES A DAY ORAL 03/30/20 13:00 04/29/20 12:59 03/30/20 17:32 Heparin Sodium (Porcine) (Heparin 5000 units/ml) 5,000 units EVERY 12 HOURS SUBQ 03/30/20 21:00 05/14/20 20:59 Hydralazine HCl (Apresoline) 10 mg Q4H PRN IV For High Blood Pressure 03/30/20 10:45 06/28/20 10:44 Insulin Aspart (NovoLOG) BEFORE MEALS AND HS SUBQ 03/30/20 11:30 06/28/20 11:29 03/30/20 16:18 Insulin Detemir (Levemir) 10 units DAILY SUBQ 03/30/20 16:00 06/28/20 15:59 03/30/20 16:18 Lisinopril (ZestriL) 10 mg DAILY ORAL 03/30/20 10:30 04/29/20 10:29 03/30/20 11:16 Assessment/Plan Problem List: (1) Pneumonia ICD Codes: J18.9 - Pneumonia, unspecified organism SNOMED: 779889671 (2) Coronavirus infection ICD Codes: B34.2 - Coronavirus infection, unspecified SNOMED: 370673675 (3) COVID-19 Assessment & Plan: as per ID ICD Codes: U07.1 - COVID-19 SNOMED: 210657490 (4) Abnormal LFTs Assessment & Plan: US abd ordered pending results trend lft's exam with grimace upon abd exam general no worse with RUQ lip / rochelle okay for diet will follow with recs thank you ICD Codes: R94.5 - Abnormal results of liver function studies SNOMED: 934499574 Jake Rodríguez Mar 30, 2020 19:49
--- NOTE | 2020-03-30 20:00 | Consultation ---
DATE OF CONSULTATION: 03/30/2020 INFECTIOUS DISEASE CONSULT ATTENDING PHYSICIAN: Kell Adorno M.D. REFERRING PHYSICIAN: Kell Adorno M.D. and Mayito Peña MD REASON FOR CONSULTATION: Urinary tract infection and COVID-19 infection and management. CHIEF COMPLAINT: The patient's chief complaint coming to the hospital is COVID infection and hypoxia. HISTORY OF PRESENT ILLNESS: This is a very pleasant 80-year-old female who comes in to [facility] with what looks like hypoxia. Even though her saturations currently are stable, it looks like she presented with hypoxia. The patient was tested for COVID-19 infection and was positive by nucleic acid testing and molecular testing. The patient also was noted to have urinary tract infection. Infectious disease consult is requested for UTI and COVID infection. She was given what looks like steroids in the emergency room. The patient currently is not on steroids or seen by Pulmonary Medicine. There is concern that steroids can cause elevated blood sugars. I discussed the case also with Dr. Peña, who felt that the patient could have CHF with elevated BNP and leg edema on exam. Chest x-ray at this time has been done, it looks like, but is pending. Infectious disease consultation is requested for further management of this patient. The patient will be placed on Rocephin for urinary tract infection. I will get chest x-ray. CRP is mildly elevated. MAR was noted. Orders noted. Notes and records reviewed. REVIEW OF SYSTEMS: As discussed, she came in with what looks like hypoxia, even though her saturations currently are stable. She has no fever, chills, night sweats. HEAD AND NECK: No head pain or neck pain. No thrush, dysphagia, neck stiffness. CARDIAC: No chest pain or palpitations GASTROINTESTINAL: No nausea, vomiting, abdominal pain, or diarrhea. GENITOURINARY: She has no CVA tenderness or Garcia. PULMONARY: No significant cough, congestion, or shortness of breath noted. SKIN: No rash. EXTREMITIES: She has no pain. She has edema. NEUROLOGIC: No seizure activity. Denies fatigue. No focal weakness. PAST MEDICAL HISTORY: She has hyponatremia, acute kidney injury, chronic kidney disease, elevated LFTs, hypertension, hyperlipidemia, diastolic CHF, obesity, diabetes type 2. ALLERGIES: Morphine and tape. No antibiotic allergies. SOCIAL HISTORY: Negative for smoking, alcohol, or drug abuse. FAMILY HISTORY: Noncontributory, negative for tuberculosis or cancer. MEDICATIONS: Upon reviewing the MAR, she is on following medications: She has been given atorvastatin and insulin. She is on gabapentin, albuterol, insulin, furosemide. She is on hydralazine, lisinopril, acetaminophen. She is on Lexapro. She was given a dose of dexamethasone and Rocephin on admission. Outside medications were noted and reconciled. PHYSICAL EXAMINATION: VITAL SIGNS: Temperature is 98.2, pulse rate is 82, respiratory rate 20, blood pressure 110/67, saturation 94%. She is currently on 2 L. She was saturating 98% earlier. She has no fevers. GENERAL: Alert, responsive, no distress. She is in COVID isolation. HEAD AND NECK: Oral exam, no thrush. Eye exam, no icterus. Normocephalic. Neck supple. No JVD. HEART: Regular. No gallop or murmur. ABDOMEN: Soft. Positive bowel sounds. PULMONARY: A few bilateral rhonchi. Mostly clear bilaterally. No rales. SKIN: No rash. MUSCULOSKELETAL: No effusion. No joint pain. She has edema of lower extremities. No cellulitis. PERIPHERAL VASCULAR: No gangrene. GENITOURINARY: No Garcia. No CVA tenderness. LINE SITES: Without phlebitis. NEUROLOGIC: Intact. Alert and nonfocal. Not a very good historian. LABORATORY DATA: White count 6.4, hemoglobin 14.5. Sodium 130, creatinine 1.2. LFTs, AST is 128, ALT 145, alk phos 133. LDH 405. CRP is 3.9. UA had 2+ leukocyte esterase, 30-40 white blood cells, many bacteria, and positive nitrite. Urine culture is pending. Chest x-ray is pending. It has been reordered. ASSESSMENT AND PLAN: 1. The patient has urinary tract infection, complicated UTI with weakness. She will continue on Rocephin for gram-negative coverage. Continue Rocephin for complicated UTI and check urine culture. 2. The patient has COVID-19 infection with questionable hypoxia secondary to COVID versus CHF. The patient is being diuresed. The patient does have elevated blood sugars, and at this time we will hold off on dexamethasone because it could worsen blood sugars and it is unclear if the COVID is really the cause of the hypoxia, could be CHF. In addition, I would avoid remdesivir currently since the LFTs are elevated and she has some renal insufficiency. Continue to monitor the patient closely. Again, if the patient becomes more hypoxic, consider dexamethasone and possibly remdesivir for COVID-19 infection. Continue COVID-19 isolation. 3. Diabetes. Blood sugar treatment per primary care team. 4. Hyponatremia. 5. Hypertension. Blood pressure treatment per primary care team. 6. Dyslipidemia. 7. Diastolic CHF. 8. Edema. 9. Obesity. 10. Allergies to morphine and tape. 11. Social history negative. 12. Family history is noncontributory. 13. MAR is noted. 14. Case discussed with RN. 15. COVID isolation. 16. Case discussed with Dr. Peña. 17. Notes and records reviewed. Orders were reviewed. Avelino Puckett M.D. DR: TROY JOB#: [id number] CC:
[2020-03-30] MEDS ORDERED: Atorvastatin 20mg tab ORAL SCH (21:00)
[2020-03-30] MEDS: Heparin 5000 units/ml inj SUBQ SCH (21:40)
[2020-03-31] VITALS: BP 124/63
[2020-03-31] MEDS: cefTRIAXone 1 GM in D5W 50 ML IVPB SCH (03:00)
[2020-03-31 04:00] VITALS: BP 118/65
[2020-03-31] MEDS: NovoLOG Insulin Flexpen SUBQ SCH ×5 (06:00→21:23)
[2020-03-31 08:00] VITALS: BP 130/65
[2020-03-31] MEDS: Lisinopril 10mg tab ORAL SCH (08:30)
[2020-03-31] MEDS: Heparin 5000 units/ml inj SUBQ SCH ×2 (08:31→21:22)
[2020-03-31] MEDS: Levemir Flexpen SUBQ SCH (08:39)
[2020-03-31 08:45] LABS: BASOPHILS % (AUTO) 0.5 % (0.0-2.0); EOSINOPHILS % (AUTO) 0.1 % (0.0-3.0); HEMOGLOBIN 14.4 G/DL (12.0-16.0); LYMPHOCYTES % (AUTO) 11.7 % (20.0-45.0); MEAN CORPUSCULAR VOLUME 81 FL (80-99); MONOCYTES % (AUTO) 8.9 % (1.0-10.0); NEUTROPHILS % (AUTO) 78.8 % (45.0-75.0); PLATELET COUNT 199 K/UL (150-450); RED CELL DISTRIBUTION WIDTH 13.9 % (11.6-14.8); WHITE BLOOD COUNT 6.9 K/UL (4.8-10.8)
[2020-03-31 09:07] LABS: INR 1.1 (0.9-1.1)
[2020-03-31 09:15] LABS: CALCIUM 8.7 MG/DL (8.5-10.1); CREATININE 1.1 MG/DL (0.55-1.30); PHOSPHORUS 3.2 MG/DL (2.5-4.9); POTASSIUM 4.2 MMOL/L (3.5-5.1)
--- NOTE | 2020-03-31 09:36 | General Progress Note ---
Subjective Date patient seen: Mar 31, 2020 Constitutional: Denies: no symptoms, chills, diaphoresis, fever, malaise, weakness, other HEENT: Denies: no symptoms, eye pain, blurred vision, tearing, double vision, ear pain, ear discharge, nose pain, nose congestion, throat pain, throat swelling, mouth pain, mouth swelling, other Cardiovascular: Denies: no symptoms, chest pain, edema, irregular heart rate, lightheadedness, palpitations, syncope, other Respiratory: Denies: no symptoms, cough, orthopnea, shortness of breath, SOB with excertion, SOB at rest, sputum, stridor, wheezing, other Gastrointestinal/Abdominal: Denies: no symptoms, abdomen distended, abdominal pain, black stools, tarry stools, blood in stool, constipated, diarrhea, difficulty swallowing, nausea, poor appetite, poor fluid intake, rectal bleeding, vomiting, other Genitourinary: Denies: no symptoms, burning, discharge, frequency, flank pain, hematuria, incontinence, pain, urgency, other Neurologic/Psychiatric: Denies: no symptoms, anxiety, depressed, emotional problems, headache, numbness, paresthesia, pre-existing deficit, seizure, tingling, tremors, weakness, other Endocrine: Denies: no symptoms, excessive sweating, flushing, intolerance to cold, intolerance to heat, increased hunger, increased thirst, increased urine, unexplained weight gain, unexplained weight loss, other Hematologic/Lymphatic: Denies: no symptoms, anemia, easy bleeding, easy bruising, other Allergies: Coded Allergies: MORPHINE (Verified Allergy, Unknown, 10/27/19) Uncoded Allergies: TAPE (Allergy, Unknown, 10/27/19) Subjective no acute events overnight diuresing well saturation improved to 92-94% on RA Objective Last 24 Hour Vital Signs Date Time Temp Pulse Resp B/P (MAP) Pulse Ox O2 Delivery O2 Flow Rate FiO2 03/31/20 09:00 Room Air 03/31/20 08:30 130/65 03/31/20 08:00 78 03/31/20 08:00 97.5 75 22 130/65 (86) 93 03/31/20 04:00 97.4 78 20 118/65 (82) 94 03/31/20 04:00 74 03/31/20 00:00 82 03/31/20 00:00 97.4 65 24 124/63 (83) 94 03/30/20 21:00 Room Air 03/30/20 20:00 97.4 62 21 119/59 (79) 94 03/30/20 20:00 82 03/30/20 16:00 98.2 83 20 110/67 (81) 94 03/30/20 16:00 82 03/30/20 12:00 97.5 101 20 135/76 (95) 98 03/30/20 12:00 85 03/30/20 11:16 155/85 Intake and Output 03/30/20 03/31/20 19:00 07:00 Intake Total 650 ml Balance 650 ml Intake Oral 650 ml # Voids 5 # Bowel Movements 4 1 Laboratory Tests 03/30/20 11:18: POC Whole Blood Glucose 434H 03/30/20 11:33: POC Whole Blood Glucose 468H 03/30/20 11:51: POC Whole Blood Glucose 489H 03/30/20 12:52: POC Whole Blood Glucose 489H 03/30/20 13:54: POC Whole Blood Glucose [Pending] 03/30/20 16:03: POC Whole Blood Glucose 394H 03/30/20 17:37: POC Whole Blood Glucose 324H 03/31/20 08:13: White Blood Count 6.9, Red Blood Count 5.20, Hemoglobin 14.4, Hematocrit 42.0, Mean Corpuscular Volume 81, Mean Corpuscular Hemoglobin 27.7, Mean Corpuscular Hemoglobin Concent 34.3, Red Cell Distribution Width 13.9, Platelet Count 199, Mean Platelet Volume 7.8, Neutrophils (%) (Auto) 78.8H, Lymphocytes (%) (Auto) 11.7L, Monocytes (%) (Auto) 8.9, Eosinophils (%) (Auto) 0.1, Basophils (%) (Auto) 0.5, Erythrocyte Sedimentation Rate [Pending], Prothrombin Time 11.6H, Prothromb Time International Ratio 1.1, Activated Partial Thromboplast Time 24, Sodium Level 135L, Potassium Level 4.2, Chloride Level 102, Carbon Dioxide Level 20L, Anion Gap 13, Blood Urea Nitrogen 57H, Creatinine 1.1, Estimat Glomerular Filtration Rate 47.6, Glucose Level 173H, Calcium Level 8.7, Phosphorus Level 3.2, Magnesium Level 2.0, Troponin I 0.006, C-Reactive Protein, Quantitative [Pending], Pro-B-Type Natriuretic Peptide 1013H, Amylase Level [Pending], Lipase [Pending] Height (Feet): 5 Height (Inches): 3.00 Weight (Pounds): 235 Objective General Appearance: no apparent distress, alert Lines, tubes and drains: peripheral HEENT: normocephalic, atraumatic, anicteric, mucous membranes moist, PERRL, EOMI Neck: non-tender, normal alignment, supple Respiratory/Chest: chest wall non-tender, lungs clear, normal breath sounds, no respiratory distress Cardiovascular/Chest: normal peripheral pulses Abdomen: normal bowel sounds, non tender, soft Extremities: normal range of motion, non-tender, moderate edema Skin Exam: normal pigmentation 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 Acute on chronic diastolic CHF 4.UTI 5.Elevated LFTs 6.Hyponatremia 7.MARIELY vs MARIELY on CKD P/ -Admit to telemetry- contact plus isolation -O2 via NC to keep sats >94% -Dexa and remdisivr per ID- holding off and treating CHF -Ceftriaxone for UTI- follow up urine cultures -Nephrology consult -Pulmonary consult -ID consult -Cardiology consult -follow up TTE -IV lasix 20 mg BID, monitor volume status -follow up cxr -Hold lipitor for elevated AST/ALT I spent 40 minutes on this encounter. > 50% spent on counselling and care coordination. Plan of care d/w patient and consultants. I will locate patient's family to update them Mayito Peña M.D. Mar 31, 2020 09:36
--- NOTE | 2020-03-31 09:56 | Nephrology Progress Note ---
Assessment/Plan Plan #Hyponatremia- hypervolumic vs SIADH in the setting of covid #acute on chronic diastolic CHF #COVID infection #HTN #DM #HLD #Obesity - ID eval - pul eval - card eval - lasix 20 IV BID - continue IV antibiotics per ID - lisinopril 10mg daily - Bg control - monitor electrolytes - avoid nephrotoxins time spent 65 mins Subjective ROS Limited/Unobtainable: No Constitutional: Reports: weakness HEENT: Denies: no symptoms, eye pain, blurred vision, tearing, double vision, ear pain, ear discharge, nose pain, nose congestion, throat pain, throat swelling, mouth pain, mouth swelling, other Genitourinary: Denies: no symptoms, burning, discharge, frequency, flank pain, hematuria, incontinence, pain, urgency, other Neurologic/Psychiatric: Denies: no symptoms, anxiety, depressed, emotional problems, headache, numbness, paresthesia, pre-existing deficit, seizure, tingling, tremors, weakness, other Subjective feeling better today BG improved BP stable Objective Objective Last 24 Hour Vital Signs Date Time Temp Pulse Resp B/P (MAP) Pulse Ox O2 Delivery O2 Flow Rate FiO2 03/31/20 09:00 Room Air 03/31/20 08:30 130/65 03/31/20 08:00 78 03/31/20 08:00 97.5 75 22 130/65 (86) 93 03/31/20 04:00 97.4 78 20 118/65 (82) 94 03/31/20 04:00 74 03/31/20 00:00 82 03/31/20 00:00 97.4 65 24 124/63 (83) 94 03/30/20 21:00 Room Air 03/30/20 20:00 97.4 62 21 119/59 (79) 94 03/30/20 20:00 82 03/30/20 16:00 98.2 83 20 110/67 (81) 94 03/30/20 16:00 82 03/30/20 12:00 97.5 101 20 135/76 (95) 98 03/30/20 12:00 85 03/30/20 11:16 155/85 Intake and Output 03/30/20 03/31/20 19:00 07:00 Intake Total 650 ml Balance 650 ml Intake Oral 650 ml # Voids 5 # Bowel Movements 4 1 Laboratory Tests 03/30/20 11:18: POC Whole Blood Glucose 434H 03/30/20 11:33: POC Whole Blood Glucose 468H 03/30/20 11:51: POC Whole Blood Glucose 489H 03/30/20 12:52: POC Whole Blood Glucose 489H 03/30/20 13:54: POC Whole Blood Glucose [Pending] 03/30/20 16:03: POC Whole Blood Glucose 394H 03/30/20 17:37: POC Whole Blood Glucose 324H 03/31/20 08:13: White Blood Count 6.9, Red Blood Count 5.20, Hemoglobin 14.4, Hematocrit 42.0, Mean Corpuscular Volume 81, Mean Corpuscular Hemoglobin 27.7, Mean Corpuscular Hemoglobin Concent 34.3, Red Cell Distribution Width 13.9, Platelet Count 199, Mean Platelet Volume 7.8, Neutrophils (%) (Auto) 78.8H, Lymphocytes (%) (Auto) 11.7L, Monocytes (%) (Auto) 8.9, Eosinophils (%) (Auto) 0.1, Basophils (%) (Auto) 0.5, Erythrocyte Sedimentation Rate [Pending], Prothrombin Time 11.6H, Prothromb Time International Ratio 1.1, Activated Partial Thromboplast Time 24, Sodium Level 135L, Potassium Level 4.2, Chloride Level 102, Carbon Dioxide Level 20L, Anion Gap 13, Blood Urea Nitrogen 57H, Creatinine 1.1, Estimat Glomerular Filtration Rate 47.6, Glucose Level 173H, Calcium Level 8.7, Phosphorus Level 3.2, Magnesium Level 2.0, Troponin I 0.006, C-Reactive Protein, Quantitative [Pending], Pro-B-Type Natriuretic Peptide 1013H, Amylase Level [Pending], Lipase [Pending] Height (Feet): 5 Height (Inches): 3.00 Weight (Pounds): 235 General Appearance: no apparent distress, alert EENT: PERRL/EOMI, normal ENT inspection Neck: non-tender, normal alignment Cardiovascular: normal peripheral pulses, normal rate Respiratory/Chest: chest wall non-tender, crackles/rales Abdomen: normal bowel sounds, non tender Neurologic: alert, oriented x 3 Kell Adorno M.D. Mar 31, 2020 09:56
[2020-03-31 10:16] LABS: AMYLASE 47 U/L (25-115)
--- NOTE | 2020-03-31 10:59 | Pulmonology Progress Note ---
Subjective ROS Limited/Unobtainable: No Interval Events: None new Constitutional: Reports: no symptoms HEENT: Repors: no symptoms Respiratory: Reports: no symptoms Cardiovascular: Reports: no symptoms Gastrointestinal/Abdominal: Reports: no symptoms Genitourinary: Reports: no symptoms Neurologic: Reports: no symptoms Allergies: Coded Allergies: MORPHINE (Verified Allergy, Unknown, 10/27/19) Uncoded Allergies: TAPE (Allergy, Unknown, 10/27/19) Objective Last 24 Hour Vital Signs Date Time Temp Pulse Resp B/P (MAP) Pulse Ox O2 Delivery O2 Flow Rate FiO2 03/31/20 09:00 Room Air 03/31/20 08:30 130/65 03/31/20 08:00 78 03/31/20 08:00 97.5 75 22 130/65 (86) 93 03/31/20 04:00 97.4 78 20 118/65 (82) 94 03/31/20 04:00 74 03/31/20 00:00 82 03/31/20 00:00 97.4 65 24 124/63 (83) 94 03/30/20 21:00 Room Air 03/30/20 20:00 97.4 62 21 119/59 (79) 94 03/30/20 20:00 82 03/30/20 16:00 98.2 83 20 110/67 (81) 94 03/30/20 16:00 82 03/30/20 12:00 97.5 101 20 135/76 (95) 98 03/30/20 12:00 85 03/30/20 11:16 155/85 Intake and Output 03/30/20 03/31/20 19:00 07:00 Intake Total 650 ml Balance 650 ml Intake Oral 650 ml # Voids 5 # Bowel Movements 4 1 General Appearance: no acute distress HEENT: normocephalic Respiratory: chest wall non-tender, lungs clear Cardiovascular: normal peripheral pulses Abdomen: normal bowel sounds Extremities: no cyanosis Microbiology Date/Time Source Procedure Growth Status 03/31/20 04:45 Stool Clostridium difficile Toxin Assay - Final Complete 03/30/20 07:30 Nasopharynx SARS-CoV-2 RdRp Gene Assay - Final Complete 03/30/20 00:15 Blood Blood Culture - Preliminary NO GROWTH AFTER 24 HOURS Resulted 03/30/20 00:00 Blood Blood Culture - Preliminary NO GROWTH AFTER 24 HOURS Resulted Laboratory Tests 03/30/20 11:18: POC Whole Blood Glucose 434H 03/30/20 11:33: POC Whole Blood Glucose 468H 03/30/20 11:51: POC Whole Blood Glucose 489H 03/30/20 12:52: POC Whole Blood Glucose 489H 03/30/20 13:54: POC Whole Blood Glucose [Pending] 03/30/20 16:03: POC Whole Blood Glucose 394H 03/30/20 17:37: POC Whole Blood Glucose 324H 03/31/20 08:13: White Blood Count 6.9, Red Blood Count 5.20, Hemoglobin 14.4, Hematocrit 42.0, Mean Corpuscular Volume 81, Mean Corpuscular Hemoglobin 27.7, Mean Corpuscular Hemoglobin Concent 34.3, Red Cell Distribution Width 13.9, Platelet Count 199, Mean Platelet Volume 7.8, Neutrophils (%) (Auto) 78.8H, Lymphocytes (%) (Auto) 11.7L, Monocytes (%) (Auto) 8.9, Eosinophils (%) (Auto) 0.1, Basophils (%) (Auto) 0.5, Erythrocyte Sedimentation Rate [Pending], Prothrombin Time 11.6H, Prothromb Time International Ratio 1.1, Activated Partial Thromboplast Time 24, Sodium Level 135L, Potassium Level 4.2, Chloride Level 102, Carbon Dioxide Level 20L, Anion Gap 13, Blood Urea Nitrogen 57H, Creatinine 1.1, Estimat Glomerular Filtration Rate 47.6, Glucose Level 173H, Calcium Level 8.7, Phosphorus Level 3.2, Magnesium Level 2.0, Troponin I 0.006, C-Reactive Protein, Quantitative 2.7H, Pro-B-Type Natriuretic Peptide 1013H, Amylase Level 47, Lipase 245 Current Medications Medications (Trade) Dose Ordered Sig/Tiburcio Route PRN Reason Start Time Stop Time Status Last Admin Dose Admin Acetaminophen (Tylenol) 650 mg Q6H PRN ORAL For Pain 03/30/20 10:30 04/29/20 10:29 Albuterol/ Ipratropium (Combivent Respimat) 1 puff Q6HR INH 03/30/20 12:00 04/29/20 11:59 03/31/20 05:58 Ceftriaxone Sodium 1 gm/ Dextrose 50 ml @ 100 mls/hr Q24H IVPB 03/31/20 01:00 04/07/20 00:59 03/31/20 03:00 Dextrose (Dextrose 50%) 25 ml Q30M PRN IV Hypoglycemia 03/30/20 10:30 06/28/20 10:29 Dextrose (Dextrose 50%) 50 ml Q30M PRN IV Hypoglycemia 03/30/20 10:30 06/28/20 10:29 Escitalopram Oxalate (Lexapro) 10 mg DAILY ORAL 03/30/20 10:30 04/29/20 10:29 03/31/20 08:30 Furosemide (Lasix) 20 mg EVERY 12 HOURS IV 03/30/20 11:15 04/29/20 11:14 03/31/20 08:35 Gabapentin (Neurontin) 300 mg THREE TIMES A DAY ORAL 03/30/20 13:00 04/29/20 12:59 03/31/20 08:30 Heparin Sodium (Porcine) (Heparin 5000 units/ml) 5,000 units EVERY 12 HOURS SUBQ 03/30/20 21:00 05/14/20 20:59 03/31/20 08:31 Hydralazine HCl (Apresoline) 10 mg Q4H PRN IV For High Blood Pressure 03/30/20 10:45 06/28/20 10:44 Insulin Aspart (NovoLOG) BEFORE MEALS AND HS SUBQ 03/30/20 11:30 06/28/20 11:29 03/31/20 06:00 Insulin Detemir (Levemir) 10 units DAILY SUBQ 03/30/20 16:00 06/28/20 15:59 03/31/20 08:39 Lisinopril (ZestriL) 10 mg DAILY ORAL 03/30/20 10:30 04/29/20 10:29 03/31/20 08:30 Assessment/Plan Assessment/Plan IMPRESSION: 1. COVID-19 pneumonia. 2. History of hypoxemia. Currently normoxemic 3. Diabetes mellitus. 4. Hypertension. 5. Hyperlipidemia. 6. Asthma. DISCUSSION: Agree with admission and care at this time. I will defer the use of remdesivir to ID specialist. She is notably on Combivent, which I will continue, as well as home medications. DVT prophylaxis with heparin subcu. Hold off on steroids given her diabetes, and minimal hypoxemia. I will follow. Amanda Blas Omar Syed MD Mar 31, 2020 10:59
[2020-03-31 12:00] VITALS: BP 121/62
--- NOTE | 2020-03-31 12:45 | Surgery Progress Note ---
Surgery Progress Note Subjective Symptoms: improved, tolerating diet, passing flatus Additional Comments labs improved pending us Objective Last 24 Hour Vital Signs Date Time Temp Pulse Resp B/P (MAP) Pulse Ox O2 Delivery O2 Flow Rate FiO2 03/31/20 09:00 Room Air 03/31/20 08:30 130/65 03/31/20 08:00 78 03/31/20 08:00 97.5 75 22 130/65 (86) 93 03/31/20 04:00 97.4 78 20 118/65 (82) 94 03/31/20 04:00 74 03/31/20 00:00 82 03/31/20 00:00 97.4 65 24 124/63 (83) 94 03/30/20 21:00 Room Air 03/30/20 20:00 97.4 62 21 119/59 (79) 94 03/30/20 20:00 82 03/30/20 16:00 98.2 83 20 110/67 (81) 94 03/30/20 16:00 82 I&O Intake and Output 03/30/20 03/31/20 19:00 07:00 Intake Total 650 ml Balance 650 ml Intake Oral 650 ml # Voids 5 # Bowel Movements 4 1 Cardiovascular: RSR Respiratory: clear Abdomen: soft, non-tender, present bowel sounds Extremities: no edema, no tenderness, no cyanosis Laboratory Tests Test 03/30/20 12:52 03/30/20 13:54 03/30/20 16:03 03/30/20 17:37 POC Whole Blood Glucose 489 MG/DL (74-106) H Pending 394 MG/DL (74-106) H 324 MG/DL (74-106) H Test 03/31/20 08:13 03/31/20 11:22 White Blood Count 6.9 K/UL (4.8-10.8) Red Blood Count 5.20 M/UL (4.20-5.40) Hemoglobin 14.4 G/DL (12.0-16.0) Hematocrit 42.0 % (37.0-47.0) Mean Corpuscular Volume 81 FL (80-99) Mean Corpuscular Hemoglobin 27.7 PG (27.0-31.0) Mean Corpuscular Hemoglobin Concent 34.3 G/DL (32.0-36.0) Red Cell Distribution Width 13.9 % (11.6-14.8) Platelet Count 199 K/UL (150-450) Mean Platelet Volume 7.8 FL (6.5-10.1) Neutrophils (%) (Auto) 78.8 % (45.0-75.0) H Lymphocytes (%) (Auto) 11.7 % (20.0-45.0) L Monocytes (%) (Auto) 8.9 % (1.0-10.0) Eosinophils (%) (Auto) 0.1 % (0.0-3.0) Basophils (%) (Auto) 0.5 % (0.0-2.0) Erythrocyte Sedimentation Rate 18 MM/HR (0-30) Prothrombin Time 11.6 SEC (9.30-11.50) H Prothromb Time International Ratio 1.1 (0.9-1.1) Activated Partial Thromboplast Time 24 SEC (23-33) Sodium Level 135 MMOL/L (136-145) L Potassium Level 4.2 MMOL/L (3.5-5.1) Chloride Level 102 MMOL/L (98-107) Carbon Dioxide Level 20 MMOL/L (21-32) L Anion Gap 13 mmol/L (5-15) Blood Urea Nitrogen 57 mg/dL (7-18) H Creatinine 1.1 MG/DL (0.55-1.30) Estimat Glomerular Filtration Rate 47.6 mL/min (>60) Glucose Level 173 MG/DL (74-106) H Calcium Level 8.7 MG/DL (8.5-10.1) Phosphorus Level 3.2 MG/DL (2.5-4.9) Magnesium Level 2.0 MG/DL (1.8-2.4) Troponin I 0.006 ng/mL (0.000-0.056) C-Reactive Protein, Quantitative 2.7 mg/dL (0.00-0.90) H Pro-B-Type Natriuretic Peptide 1013 pg/mL (0-125) H Amylase Level 47 U/L (25-115) Lipase 245 U/L (73-393) POC Whole Blood Glucose 165 MG/DL (74-106) H Plan Problems: (1) Pneumonia (2) Coronavirus infection (3) COVID-19 Assessment & Plan: as per ID (4) Abnormal LFTs Assessment & Plan: US abd ordered pending results trend lft's exam with grimace upon abd exam general no worse with RUQ lip / rochelle okay for diet will follow with recs thank you Jake Rodríguez Mar 31, 2020 12:45
--- NOTE | 2020-03-31 15:24 | Diagnostic Imaging Report ---
Indication: Abnormal liver function tests, positive COVID Technique: Cooper-scale and duplex images of the upper abdomen were obtained Comparison: none Findings: Gallbladder has been removed Common bile duct measures 12 mm in diameter. No intrahepatic biliary ductal dilatation. Liver demonstrates somewhat increased echogenicity, no focal abnormality. Portal vein and hepatic veins are patent. Pancreas is unremarkable. Spleen is unremarkable. Left kidney measures 10.3 cm in length. Right kidney measures 8.7 cm length. Both kidneys demonstrate normal echogenicity, mild cortical thinning. There is no hydronephrosis. No focal abnormality . The aorta is partially obscured. Impression: Absent gallbladder. Dilated extra hepatic ducts are likely related to age and postcholecystectomy state, but downstream obstruction also possible. Consider MRCP if clinically indicated Liver demonstrates diffusely increased echogenicity, consistent with diffuse hepatocellular disease, most likely fatty change.. Mild thinning of the renal cortices. Note incomplete visualization of the abdominal aorta
--- NOTE | 2020-03-31 15:28 | Cardiac Electrophysiology PN ---
Assessment/Plan Assessment/Plan 1. Congestive heart failure with BNP of 564. On Lasix 20 mg IV b.i.d. Echocardiogram EF 40% 2. Hypertension, on Lasix 20 mg IV b.i.d, lisinopril 10 mg daily and p.r.n. hydralazine. 3. S/P Medtronic pacer 2013. Will interrogated after Covid is negative 4. COVID pneumonia, on dexamethasone. 5. Diabetes, on insulin. 6. Hyperlipidemia, on Lipitor. DW RN Subjective Subjective DW RN and found out that the pacer brand is Medtronic and implanted in 2013. EF 40-45% Objective Last 24 Hour Vital Signs Date Time Temp Pulse Resp B/P (MAP) Pulse Ox O2 Delivery O2 Flow Rate FiO2 03/31/20 12:00 77 03/31/20 12:00 97.2 76 20 121/62 (81) 93 03/31/20 09:00 Room Air 03/31/20 08:30 130/65 03/31/20 08:00 78 03/31/20 08:00 97.5 75 22 130/65 (86) 93 03/31/20 04:00 97.4 78 20 118/65 (82) 94 03/31/20 04:00 74 03/31/20 00:00 82 03/31/20 00:00 97.4 65 24 124/63 (83) 94 03/30/20 21:00 Room Air 03/30/20 20:00 97.4 62 21 119/59 (79) 94 03/30/20 20:00 82 03/30/20 16:00 98.2 83 20 110/67 (81) 94 03/30/20 16:00 82 Intake and Output 03/30/20 03/31/20 19:00 07:00 Intake Total 650 ml Balance 650 ml Intake Oral 650 ml # Voids 5 # Bowel Movements 4 1 Laboratory Tests Test 03/30/20 16:03 03/30/20 17:37 03/31/20 08:13 03/31/20 11:22 POC Whole Blood Glucose 394 MG/DL (74-106) H 324 MG/DL (74-106) H 165 MG/DL (74-106) H White Blood Count 6.9 K/UL (4.8-10.8) Red Blood Count 5.20 M/UL (4.20-5.40) Hemoglobin 14.4 G/DL (12.0-16.0) Hematocrit 42.0 % (37.0-47.0) Mean Corpuscular Volume 81 FL (80-99) Mean Corpuscular Hemoglobin 27.7 PG (27.0-31.0) Mean Corpuscular Hemoglobin Concent 34.3 G/DL (32.0-36.0) Red Cell Distribution Width 13.9 % (11.6-14.8) Platelet Count 199 K/UL (150-450) Mean Platelet Volume 7.8 FL (6.5-10.1) Neutrophils (%) (Auto) 78.8 % (45.0-75.0) H Lymphocytes (%) (Auto) 11.7 % (20.0-45.0) L Monocytes (%) (Auto) 8.9 % (1.0-10.0) Eosinophils (%) (Auto) 0.1 % (0.0-3.0) Basophils (%) (Auto) 0.5 % (0.0-2.0) Erythrocyte Sedimentation Rate 18 MM/HR (0-30) Prothrombin Time 11.6 SEC (9.30-11.50) H Prothromb Time International Ratio 1.1 (0.9-1.1) Activated Partial Thromboplast Time 24 SEC (23-33) Sodium Level 135 MMOL/L (136-145) L Potassium Level 4.2 MMOL/L (3.5-5.1) Chloride Level 102 MMOL/L (98-107) Carbon Dioxide Level 20 MMOL/L (21-32) L Anion Gap 13 mmol/L (5-15) Blood Urea Nitrogen 57 mg/dL (7-18) H Creatinine 1.1 MG/DL (0.55-1.30) Estimat Glomerular Filtration Rate 47.6 mL/min (>60) Glucose Level 173 MG/DL (74-106) H Calcium Level 8.7 MG/DL (8.5-10.1) Phosphorus Level 3.2 MG/DL (2.5-4.9) Magnesium Level 2.0 MG/DL (1.8-2.4) Troponin I 0.006 ng/mL (0.000-0.056) C-Reactive Protein, Quantitative 2.7 mg/dL (0.00-0.90) H Pro-B-Type Natriuretic Peptide 1013 pg/mL (0-125) H Amylase Level 47 U/L (25-115) Lipase 245 U/L (73-393) Microbiology Date/Time Source Procedure Growth Status 03/31/20 04:45 Stool Clostridium difficile Toxin Assay - Final Complete 03/30/20 07:30 Nasopharynx SARS-CoV-2 RdRp Gene Assay - Final Complete 03/30/20 00:15 Blood Blood Culture - Preliminary NO GROWTH AFTER 24 HOURS Resulted 03/30/20 00:10 Urine,Clean Catch Urine Culture - Preliminary Gram Negative Eliceo Resulted 03/30/20 00:05 Nasopharynx Coronavirus COVID-19 PCR (SPENSER) - Final Complete 03/30/20 00:00 Nasal Nares MRSA Culture - Final NO METHICILLIN RESISTANT STAPH AUREUS... Complete 03/30/20 00:00 Blood Blood Culture - Preliminary NO GROWTH AFTER 24 HOURS Resulted Objective HEAD AND NECK: Some mild JVD. LUNGS: Coarse rhonchi. CARDIOVASCULAR: Regular S1 and S2 with no gallop or murmur.Pacer in Left subclavian. ABDOMEN: Soft. EXTREMITIES: Mild to moderate edema. Rafiq Cote MD Mar 31, 2020 15:28
--- NOTE | 2020-03-31 15:38 | Diagnostic Imaging Report ---
Indication: Cough Technique: One view of the chest Comparison: 03/29/2020 Findings: Bilateral infiltrates versus edema appears slightly improved since the prior exam. Ossifications in the right perihilar region, left chest pacemaker are again demonstrated. Impression: Interim partial improvement of previously demonstrated bilateral infiltrates versus edema
[2020-03-31 16:00] VITALS: BP 125/63
[2020-03-31] MEDS ORDERED: ZESTRIL10 MG ORAL (19:39)
[2020-03-31] MEDS ORDERED: PRO-STAT LIQUID30 ML ORAL (19:39)
[2020-03-31] MEDS ORDERED: ACETAMINOPHEN325 M1 ORAL (19:39)
[2020-03-31] MEDS ORDERED: NEURONTIN300 MG ORAL (19:39)
[2020-03-31 20:00] VITALS: BP 105/39
[2020-04-01] VITALS: BP 103/65
[2020-04-01] MEDS: cefTRIAXone 1 GM in D5W 50 ML IVPB SCH (01:20)
[2020-04-01 04:00] VITALS: BP 94/50
[2020-04-01] MEDS: NovoLOG Insulin Flexpen SUBQ SCH ×4 (06:03→21:00)
[2020-04-01 06:44] LABS: BASOPHILS % (AUTO) 0.4 % (0.0-2.0); EOSINOPHILS % (AUTO) 0.5 % (0.0-3.0); HEMATOCRIT 44.1 % (37.0-47.0); HEMOGLOBIN 14.3 G/DL (12.0-16.0); LYMPHOCYTES % (AUTO) 8.9 % (20.0-45.0); MEAN CORPUSCULAR VOLUME 84 FL (80-99); MONOCYTES % (AUTO) 9.8 % (1.0-10.0); NEUTROPHILS % (AUTO) 80.6 % (45.0-75.0); PLATELET COUNT 225 K/UL (150-450); RED BLOOD COUNT 5.22 M/UL (4.20-5.40); RED CELL DISTRIBUTION WIDTH 14.1 % (11.6-14.8); WHITE BLOOD COUNT 9.4 K/UL (4.8-10.8)
[2020-04-01 07:05] LABS: CALCIUM 9.1 MG/DL (8.5-10.1); CREATININE 2.2 MG/DL (0.55-1.30)
[2020-04-01 08:00] VITALS: BP 98/61
--- NOTE | 2020-04-01 09:01 | Nephrology Progress Note ---
Assessment/Plan Plan #Hyponatremia- hypervolumic vs SIADH in the setting of covid #acute on chronic diastolic CHF #COVID infection #HTN #DM #HLD #Obesity - ID eval - pul eval - card eval - HOLD lasix 20 IV BID - continue IV antibiotics per ID - HOLD lisinopril 10mg daily - Bg control - monitor electrolytes - avoid nephrotoxins time spent 65 mins Subjective ROS Limited/Unobtainable: No Constitutional: Reports: weakness HEENT: Denies: no symptoms, eye pain, blurred vision, tearing, double vision, ear pain, ear discharge, nose pain, nose congestion, throat pain, throat swelling, mouth pain, mouth swelling, other Genitourinary: Denies: no symptoms, burning, discharge, frequency, flank pain, hematuria, incontinence, pain, urgency, other Neurologic/Psychiatric: Denies: no symptoms, anxiety, depressed, emotional problems, headache, numbness, paresthesia, pre-existing deficit, seizure, tingling, tremors, weakness, other Subjective BP soft Cr up to 2.2 Will hold lasix and lisinopril Objective Objective Last 24 Hour Vital Signs Date Time Temp Pulse Resp B/P (MAP) Pulse Ox O2 Delivery O2 Flow Rate FiO2 04/01/20 08:29 Room Air 04/01/20 08:00 97.1 82 18 98/61 (73) 96 04/01/20 04:00 97.3 84 15 94/50 (65) 94 04/01/20 04:00 80 04/01/20 00:00 87 04/01/20 00:00 96.9 94 19 103/65 (78) 97 03/31/20 21:00 Room Air 03/31/20 20:00 87 03/31/20 20:00 97.2 91 16 105/39 (61) 95 03/31/20 16:00 88 03/31/20 16:00 97.4 79 18 125/63 (83) 95 03/31/20 12:00 77 03/31/20 12:00 97.2 76 20 121/62 (81) 93 Intake and Output 03/31/20 04/01/20 19:00 07:00 Intake Total 500 ml 60 ml Balance 500 ml 60 ml Intake Oral 500 ml 60 ml # Voids 3 3 # Bowel Movements 2 2 Laboratory Tests 03/31/20 11:22: POC Whole Blood Glucose 165H 03/31/20 16:01: POC Whole Blood Glucose 216H 04/01/20 05:00: White Blood Count 9.4, Red Blood Count 5.22, Hemoglobin 14.3, Hematocrit 44.1, Mean Corpuscular Volume 84, Mean Corpuscular Hemoglobin 27.4, Mean Corpuscular Hemoglobin Concent 32.5, Red Cell Distribution Width 14.1, Platelet Count 225, Mean Platelet Volume 7.0, Neutrophils (%) (Auto) 80.6H, Lymphocytes (%) (Auto) 8.9L, Monocytes (%) (Auto) 9.8, Eosinophils (%) (Auto) 0.5, Basophils (%) (Auto) 0.4, Sodium Level 135L, Potassium Level 4.0, Chloride Level 100, Carbon Dioxide Level 21, Anion Gap 14, Blood Urea Nitrogen 76H, Creatinine 2.2#H, Estimat Glomerular Filtration Rate 21.4, Glucose Level 203H, Calcium Level 9.1 Height (Feet): 5 Height (Inches): 3.00 Weight (Pounds): 235 Kell Adorno M.D. Apr 01, 2020 09:01
[2020-04-01] MEDS: Heparin 5000 units/ml inj SUBQ SCH ×2 (09:33→21:27)
[2020-04-01] MEDS: Levemir Flexpen SUBQ SCH (09:34)
[2020-04-01] MEDS ORDERED: NS 275ml ONE (09:57)
[2020-04-01] MEDS ORDERED: Tubing IV Secondary IV ONE (09:57)
--- NOTE | 2020-04-01 11:10 | General Progress Note ---
Subjective Date patient seen: Apr 01, 2020 ROS Limited/Unobtainable: No Constitutional: Denies: no symptoms, chills, diaphoresis, fever, malaise, weakness, other HEENT: Denies: no symptoms, eye pain, blurred vision, tearing, double vision, ear pain, ear discharge, nose pain, nose congestion, throat pain, throat swelling, mouth pain, mouth swelling, other Cardiovascular: Denies: no symptoms, chest pain, edema, irregular heart rate, lightheadedness, palpitations, syncope, other Respiratory: Denies: no symptoms, cough, orthopnea, shortness of breath, SOB with excertion, SOB at rest, sputum, stridor, wheezing, other Gastrointestinal/Abdominal: Denies: no symptoms, abdomen distended, abdominal pain, black stools, tarry stools, blood in stool, constipated, diarrhea, difficulty swallowing, nausea, poor appetite, poor fluid intake, rectal bleeding, vomiting, other Genitourinary: Denies: no symptoms, burning, discharge, frequency, flank pain, hematuria, incontinence, pain, urgency, other Neurologic/Psychiatric: Denies: no symptoms, anxiety, depressed, emotional pr oblems, headache, numbness, paresthesia, pre-existing deficit, seizure, tingling, tremors, weakness, other Endocrine: Denies: no symptoms, excessive sweating, flushing, intolerance to cold, intolerance to heat, increased hunger, increased thirst, increased urine, unexplained weight gain, unexplained weight loss, other Hematologic/Lymphatic: Denies: no symptoms, anemia, easy bleeding, easy bruising, other Allergies: Coded Allergies: MORPHINE (Verified Allergy, Unknown, 10/27/19) Uncoded Allergies: TAPE (Allergy, Unknown, 10/27/19) Subjective remains on oxygen, lethargic this morning Objective Last 24 Hour Vital Signs Date Time Temp Pulse Resp B/P (MAP) Pulse Ox O2 Delivery O2 Flow Rate FiO2 04/01/20 08:29 Room Air 04/01/20 08:00 97.1 82 18 98/61 (73) 96 04/01/20 08:00 85 04/01/20 04:00 97.3 84 15 94/50 (65) 94 04/01/20 04:00 80 04/01/20 00:00 87 04/01/20 00:00 96.9 94 19 103/65 (78) 97 03/31/20 21:00 Room Air 03/31/20 20:00 87 03/31/20 20:00 97.2 91 16 105/39 (61) 95 03/31/20 16:00 88 03/31/20 16:00 97.4 79 18 125/63 (83) 95 03/31/20 12:00 77 03/31/20 12:00 97.2 76 20 121/62 (81) 93 Intake and Output 03/31/20 04/01/20 19:00 07:00 Intake Total 500 ml 60 ml Balance 500 ml 60 ml Intake Oral 500 ml 60 ml # Voids 3 3 # Bowel Movements 2 2 Laboratory Tests 03/31/20 11:22: POC Whole Blood Glucose 165H 03/31/20 16:01: POC Whole Blood Glucose 216H 04/01/20 05:00: White Blood Count 9.4, Red Blood Count 5.22, Hemoglobin 14.3, Hematocrit 44.1, Mean Corpuscular Volume 84, Mean Corpuscular Hemoglobin 27.4, Mean Corpuscular Hemoglobin Concent 32.5, Red Cell Distribution Width 14.1, Platelet Count 225, Mean Platelet Volume 7.0, Neutrophils (%) (Auto) 80.6H, Lymphocytes (%) (Auto) 8.9L, Monocytes (%) (Auto) 9.8, Eosinophils (%) (Auto) 0.5, Basophils (%) (Auto) 0.4, Sodium Level 135L, Potassium Level 4.0, Chloride Level 100, Carbon Dioxide Level 21, Anion Gap 14, Blood Urea Nitrogen 76H, Creatinine 2.2#H, Estimat Glomerular Filtration Rate 21.4, Glucose Level 203H, Calcium Level 9.1, Pro-B-Type Natriuretic Peptide 853H Height (Feet): 5 Height (Inches): 3.00 Weight (Pounds): 235 Objective General Appearance: no apparent distress, alert Lines, tubes and drains: peripheral HEENT: normocephalic, atraumatic, anicteric, mucous membranes moist, PERRL, EOMI Neck: non-tender, normal alignment, supple Respiratory/Chest: chest wall non-tender, lungs clear, normal breath sounds, no respiratory distress Cardiovascular/Chest: normal peripheral pulses Abdomen: normal bowel sounds, non tender, soft Extremities: normal range of motion, non-tender, moderate edema Skin Exam: normal pigmentation 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 Acute on chronic diastolic CHF 4.UTI 5.Elevated LFTs 6.Hyponatremia 7.MARIELY vs MARIELY on CKD P/ -Admit to telemetry- contact plus isolation -O2 via NC to keep sats >94% -Dexa and remdisivr per ID- holding off and treating CHF -Ceftriaxone for UTI- follow up urine cultures -Nephrology consult -Pulmonary consult -ID consult -Cardiology consult -follow up TTE -IV lasix 20 mg BID, monitor volume status. DC lasix given worsening MARIELY. d/w Dr. Adorno, will bolus 250 NS -follow up cxr -Hold lipitor for elevated AST/ALT -Hold lisinopril I spent 40 minutes on this encounter. > 50% spent on counselling and care coordination. Plan of care d/w patient and consultants. I will locate patient's family to update them Mayito Peña M.D. Apr 01, 2020 11:10
--- NOTE | 2020-04-01 11:31 | Pulmonology Progress Note ---
Subjective ROS Limited/Unobtainable: No Interval Events: None new Constitutional: Reports: no symptoms HEENT: Repors: no symptoms Respiratory: Reports: no symptoms Cardiovascular: Reports: no symptoms Gastrointestinal/Abdominal: Reports: no symptoms Genitourinary: Reports: no symptoms Neurologic: Reports: no symptoms Allergies: Coded Allergies: MORPHINE (Verified Allergy, Unknown, 10/27/19) Uncoded Allergies: TAPE (Allergy, Unknown, 10/27/19) Objective Last 24 Hour Vital Signs Date Time Temp Pulse Resp B/P (MAP) Pulse Ox O2 Delivery O2 Flow Rate FiO2 04/01/20 08:29 Room Air 04/01/20 08:00 97.1 82 18 98/61 (73) 96 04/01/20 08:00 85 04/01/20 04:00 97.3 84 15 94/50 (65) 94 04/01/20 04:00 80 04/01/20 00:00 87 04/01/20 00:00 96.9 94 19 103/65 (78) 97 03/31/20 21:00 Room Air 03/31/20 20:00 87 03/31/20 20:00 97.2 91 16 105/39 (61) 95 03/31/20 16:00 88 03/31/20 16:00 97.4 79 18 125/63 (83) 95 03/31/20 12:00 77 03/31/20 12:00 97.2 76 20 121/62 (81) 93 Intake and Output 03/31/20 04/01/20 19:00 07:00 Intake Total 500 ml 60 ml Balance 500 ml 60 ml Intake Oral 500 ml 60 ml # Voids 3 3 # Bowel Movements 2 2 Objective pt asleep in bed; saturating 96% on RA General Appearance: no acute distress HEENT: normocephalic Respiratory: chest wall non-tender, lungs clear Cardiovascular: normal peripheral pulses Abdomen: normal bowel sounds Extremities: no cyanosis Microbiology Date/Time Source Procedure Growth Status 03/31/20 04:45 Stool Clostridium difficile Toxin Assay - Final Complete 03/30/20 07:30 Nasopharynx SARS-CoV-2 RdRp Gene Assay - Final Complete 03/30/20 00:15 Blood Blood Culture - Preliminary NO GROWTH AFTER 24 HOURS Resulted 03/30/20 00:10 Urine,Clean Catch Urine Culture - Final Escherichia Coli Complete 03/30/20 00:05 Nasopharynx Coronavirus COVID-19 PCR (SPENSER) - Final Complete 03/30/20 00:00 Rectum - Final NO CARBAPENEM-RESISTANT ENTEROBACTERI... Complete 03/30/20 00:00 Rectum VRE Culture - Final NO VANCOMYCIN RESISTANT ENTEROCOCCUS ... Complete 03/30/20 00:00 Nasal Nares MRSA Culture - Final NO METHICILLIN RESISTANT STAPH AUREUS... Complete 03/30/20 00:00 Blood Blood Culture - Preliminary NO GROWTH AFTER 24 HOURS Resulted Laboratory Tests 03/31/20 16:01: POC Whole Blood Glucose 216H 04/01/20 05:00: White Blood Count 9.4, Red Blood Count 5.22, Hemoglobin 14.3, Hematocrit 44.1, Mean Corpuscular Volume 84, Mean Corpuscular Hemoglobin 27.4, Mean Corpuscular Hemoglobin Concent 32.5, Red Cell Distribution Width 14.1, Platelet Count 225, Mean Platelet Volume 7.0, Neutrophils (%) (Auto) 80.6H, Lymphocytes (%) (Auto) 8.9L, Monocytes (%) (Auto) 9.8, Eosinophils (%) (Auto) 0.5, Basophils (%) (Auto) 0.4, Sodium Level 135L, Potassium Level 4.0, Chloride Level 100, Carbon Dioxide Level 21, Anion Gap 14, Blood Urea Nitrogen 76H, Creatinine 2.2#H, Estimat Glomerular Filtration Rate 21.4, Glucose Level 203H, Calcium Level 9.1, Pro-B-Type Natriuretic Peptide 853H Current Medications Medications (Trade) Dose Ordered Sig/Tiburcio Route PRN Reason Start Time Stop Time Status Last Admin Dose Admin Acetaminophen (Tylenol) 650 mg Q6H PRN ORAL For Pain 03/30/20 10:30 04/29/20 10:29 Albuterol/ Ipratropium (Combivent Respimat) 1 puff Q6HR INH 03/30/20 12:00 04/29/20 11:59 04/01/20 06:02 Ceftriaxone Sodium 1 gm/ Dextrose 50 ml @ 100 mls/hr Q24H IVPB 03/31/20 01:00 04/07/20 00:59 04/01/20 01:20 Dextrose (Dextrose 50%) 25 ml Q30M PRN IV Hypoglycemia 03/30/20 10:30 06/28/20 10:29 Dextrose (Dextrose 50%) 50 ml Q30M PRN IV Hypoglycemia 03/30/20 10:30 06/28/20 10:29 Escitalopram Oxalate (Lexapro) 10 mg DAILY ORAL 03/30/20 10:30 04/29/20 10:29 04/01/20 09:33 Gabapentin (Neurontin) 300 mg THREE TIMES A DAY ORAL 03/30/20 13:00 04/29/20 12:59 04/01/20 09:33 Heparin Sodium (Porcine) (Heparin 5000 units/ml) 5,000 units EVERY 12 HOURS SUBQ 03/30/20 21:00 05/14/20 20:59 04/01/20 09:33 Hydralazine HCl (Apresoline) 10 mg Q4H PRN IV For High Blood Pressure 03/30/20 10:45 06/28/20 10:44 Insulin Aspart (NovoLOG) BEFORE MEALS AND HS SUBQ 03/30/20 11:30 06/28/20 11:29 04/01/20 06:03 Insulin Detemir (Levemir) 10 units DAILY SUBQ 03/30/20 16:00 06/28/20 15:59 04/01/20 09:34 Assessment/Plan Assessment/Plan 1. COVID-19 pneumonia. - defer the use of remdesivir to ID specialist. - 03/31/2020 CXR demonstrates partial improvement of infiltrates vs edema 2. History of hypoxemia. - Currently normoxemic on room air - saturating 96% on RA 3. Diabetes mellitus. - Hold off on steroids given her diabetes 4. Hypertension. 5. Hyperlipidemia. 6. Asthma. - On combivent 7. DVT prophylaxis with heparin subcu. 8. Acute renal failure - 03/31/2020 labs showed BUN 76, Cr 2.2 - Bolus of 250 ml NS given this am by renal - hold off nephrotoxins per renal Cont monitor lytes We will follow closely The care for this patient was discussed with my supervising physician Seen and examined by Dr. Hightower as well Time spent for this case was approximately 31 minutes Edwin Quinn Apr 01, 2020 11:31
[2020-04-01 12:00] VITALS: BP 120/61
--- NOTE | 2020-04-01 12:58 | Cardiology Report ---
APPROVED REPORT EKG Measurement Heart [id number] <Conclusion> Atrial-sensed ventricular-paced rhythm Abnormal ECG
--- NOTE | 2020-04-01 13:56 | Cardiac Electrophysiology PN ---
Assessment/Plan Assessment/Plan 1. Congestive heart failure with BNP of 564. Change Lasix to 40 mg IV daily. Echocardiogram EF 40% 2. Hypertension, on Lasix 40 mg IV daily, lisinopril 10 mg daily and p.r.n. hydralazine. 3. S/P Medtronic pacer 2013. Will interrogated after Covid is negative 4. COVID pneumonia, on dexamethasone. 5. Diabetes, on insulin. 6. Hyperlipidemia, on Lipitor. JAMES RN Subjective Subjective In Covid isolation on tele. In SR. EF 40-45% Objective Last 24 Hour Vital Signs Date Time Temp Pulse Resp B/P (MAP) Pulse Ox O2 Delivery O2 Flow Rate FiO2 04/01/20 12:00 84 04/01/20 12:00 97.0 83 20 120/61 (80) 95 04/01/20 08:29 Room Air 04/01/20 08:00 97.1 82 18 98/61 (73) 96 04/01/20 08:00 85 04/01/20 04:00 97.3 84 15 94/50 (65) 94 04/01/20 04:00 80 04/01/20 00:00 87 04/01/20 00:00 96.9 94 19 103/65 (78) 97 03/31/20 21:00 Room Air 03/31/20 20:00 87 03/31/20 20:00 97.2 91 16 105/39 (61) 95 03/31/20 16:00 88 03/31/20 16:00 97.4 79 18 125/63 (83) 95 Intake and Output 03/31/20 04/01/20 19:00 07:00 Intake Total 500 ml 60 ml Balance 500 ml 60 ml Intake Oral 500 ml 60 ml # Voids 3 3 # Bowel Movements 2 2 Laboratory Tests Test 03/31/20 16:01 04/01/20 05:00 04/01/20 11:40 POC Whole Blood Glucose 216 MG/DL (74-106) H 185 MG/DL (74-106) H White Blood Count 9.4 K/UL (4.8-10.8) Red Blood Count 5.22 M/UL (4.20-5.40) Hemoglobin 14.3 G/DL (12.0-16.0) Hematocrit 44.1 % (37.0-47.0) Mean Corpuscular Volume 84 FL (80-99) Mean Corpuscular Hemoglobin 27.4 PG (27.0-31.0) Mean Corpuscular Hemoglobin Concent 32.5 G/DL (32.0-36.0) Red Cell Distribution Width 14.1 % (11.6-14.8) Platelet Count 225 K/UL (150-450) Mean Platelet Volume 7.0 FL (6.5-10.1) Neutrophils (%) (Auto) 80.6 % (45.0-75.0) H Lymphocytes (%) (Auto) 8.9 % (20.0-45.0) L Monocytes (%) (Auto) 9.8 % (1.0-10.0) Eosinophils (%) (Auto) 0.5 % (0.0-3.0) Basophils (%) (Auto) 0.4 % (0.0-2.0) Sodium Level 135 MMOL/L (136-145) L Potassium Level 4.0 MMOL/L (3.5-5.1) Chloride Level 100 MMOL/L (98-107) Carbon Dioxide Level 21 MMOL/L (21-32) Anion Gap 14 mmol/L (5-15) Blood Urea Nitrogen 76 mg/dL (7-18) H Creatinine 2.2 MG/DL (0.55-1.30) #H Estimat Glomerular Filtration Rate 21.4 mL/min (>60) Glucose Level 203 MG/DL (74-106) H Calcium Level 9.1 MG/DL (8.5-10.1) Pro-B-Type Natriuretic Peptide 853 pg/mL (0-125) H Microbiology Date/Time Source Procedure Growth Status 03/31/20 04:45 Stool Clostridium difficile Toxin Assay - Final Complete 03/30/20 07:30 Nasopharynx SARS-CoV-2 RdRp Gene Assay - Final Complete 03/30/20 00:15 Blood Blood Culture - Preliminary NO GROWTH AFTER 24 HOURS Resulted 03/30/20 00:10 Urine,Clean Catch Urine Culture - Final Escherichia Coli Complete 03/30/20 00:05 Nasopharynx Coronavirus COVID-19 PCR (SPENSER) - Final Complete 03/30/20 00:00 Rectum - Final NO CARBAPENEM-RESISTANT ENTEROBACTERI... Complete 03/30/20 00:00 Rectum VRE Culture - Final NO VANCOMYCIN RESISTANT ENTEROCOCCUS ... Complete 03/30/20 00:00 Nasal Nares MRSA Culture - Final NO METHICILLIN RESISTANT STAPH AUREUS... Complete 03/30/20 00:00 Blood Blood Culture - Preliminary NO GROWTH AFTER 24 HOURS Resulted Objective HEAD AND NECK: Some mild JVD. LUNGS: Coarse rhonchi. CARDIOVASCULAR: Regular S1 and S2 with no gallop or murmur.Pacer in Left subcl myriam. ABDOMEN: Soft. EXTREMITIES: Mild to moderate edema. Rafiq Cote MD Apr 01, 2020 13:56
--- NOTE | 2020-04-01 13:58 | Cardiac Electrophysiology PN ---
Assessment/Plan Assessment/Plan 1. Congestive heart failure with BNP of 564. DC Lasix as getting ARF. Echocardiogram EF 40% 2. Hypertension, DC Lasix and lisinopril On p.r.n. hydralazine. 3. S/P Medtronic pacer 2013. Will interrogated after Covid is negative 4. COVID pneumonia, on dexamethasone. 5. Diabetes, on insulin. 6. Hyperlipidemia, on Lipitor. 7. Acute renal failure with BUN/CR 72/2.2 DC Lasix and lisinopri DW RN Subjective Subjective In Covid isolation on tele. In SR. EF 40-45% Objective Last 24 Hour Vital Signs Date Time Temp Pulse Resp B/P (MAP) Pulse Ox O2 Delivery O2 Flow Rate FiO2 04/01/20 12:00 84 04/01/20 12:00 97.0 83 20 120/61 (80) 95 04/01/20 08:29 Room Air 04/01/20 08:00 97.1 82 18 98/61 (73) 96 04/01/20 08:00 85 04/01/20 04:00 97.3 84 15 94/50 (65) 94 04/01/20 04:00 80 04/01/20 00:00 87 04/01/20 00:00 96.9 94 19 103/65 (78) 97 03/31/20 21:00 Room Air 03/31/20 20:00 87 03/31/20 20:00 97.2 91 16 105/39 (61) 95 03/31/20 16:00 88 03/31/20 16:00 97.4 79 18 125/63 (83) 95 Intake and Output 03/31/20 04/01/20 19:00 07:00 Intake Total 500 ml 60 ml Balance 500 ml 60 ml Intake Oral 500 ml 60 ml # Voids 3 3 # Bowel Movements 2 2 Laboratory Tests Test 03/31/20 16:01 04/01/20 05:00 04/01/20 11:40 POC Whole Blood Glucose 216 MG/DL (74-106) H 185 MG/DL (74-106) H White Blood Count 9.4 K/UL (4.8-10.8) Red Blood Count 5.22 M/UL (4.20-5.40) Hemoglobin 14.3 G/DL (12.0-16.0) Hematocrit 44.1 % (37.0-47.0) Mean Corpuscular Volume 84 FL (80-99) Mean Corpuscular Hemoglobin 27.4 PG (27.0-31.0) Mean Corpuscular Hemoglobin Concent 32.5 G/DL (32.0-36.0) Red Cell Distribution Width 14.1 % (11.6-14.8) Platelet Count 225 K/UL (150-450) Mean Platelet Volume 7.0 FL (6.5-10.1) Neutrophils (%) (Auto) 80.6 % (45.0-75.0) H Lymphocytes (%) (Auto) 8.9 % (20.0-45.0) L Monocytes (%) (Auto) 9.8 % (1.0-10.0) Eosinophils (%) (Auto) 0.5 % (0.0-3.0) Basophils (%) (Auto) 0.4 % (0.0-2.0) Sodium Level 135 MMOL/L (136-145) L Potassium Level 4.0 MMOL/L (3.5-5.1) Chloride Level 100 MMOL/L (98-107) Carbon Dioxide Level 21 MMOL/L (21-32) Anion Gap 14 mmol/L (5-15) Blood Urea Nitrogen 76 mg/dL (7-18) H Creatinine 2.2 MG/DL (0.55-1.30) #H Estimat Glomerular Filtration Rate 21.4 mL/min (>60) Glucose Level 203 MG/DL (74-106) H Calcium Level 9.1 MG/DL (8.5-10.1) Pro-B-Type Natriuretic Peptide 853 pg/mL (0-125) H Microbiology Date/Time Source Procedure Growth Status 03/31/20 04:45 Stool Clostridium difficile Toxin Assay - Final Complete 03/30/20 07:30 Nasopharynx SARS-CoV-2 RdRp Gene Assay - Final Complete 03/30/20 00:15 Blood Blood Culture - Preliminary NO GROWTH AFTER 24 HOURS Resulted 03/30/20 00:10 Urine,Clean Catch Urine Culture - Final Escherichia Coli Complete 03/30/20 00:05 Nasopharynx Coronavirus COVID-19 PCR (SPENSER) - Final Complete 03/30/20 00:00 Rectum - Final NO CARBAPENEM-RESISTANT ENTEROBACTERI... Complete 03/30/20 00:00 Rectum VRE Culture - Final NO VANCOMYCIN RESISTANT ENTEROCOCCUS ... Complete 03/30/20 00:00 Nasal Nares MRSA Culture - Final NO METHICILLIN RESISTANT STAPH AUREUS... Complete 03/30/20 00:00 Blood Blood Culture - Preliminary NO GROWTH AFTER 24 HOURS Resulted Objective HEAD AND NECK: Some mild JVD. LUNGS: Coarse rhonchi. CARDIOVASCULAR: Regular S1 and S2 with no gallop or murmur.Pacer in Left subclavian. ABDOMEN: Soft. EXTREMITIES: Mild to moderate edema. Rafiq Cote MD Apr 01, 2020 13:58
--- NOTE | 2020-04-01 15:29 | Surgery Progress Note ---
Surgery Progress Note Subjective Additional Comments jennifer cute events comfortable stable US noted labs improving Objective Last 24 Hour Vital Signs Date Time Temp Pulse Resp B/P (MAP) Pulse Ox O2 Delivery O2 Flow Rate FiO2 04/01/20 12:00 84 04/01/20 12:00 97.0 83 20 120/61 (80) 95 04/01/20 08:29 Room Air 04/01/20 08:00 97.1 82 18 98/61 (73) 96 04/01/20 08:00 85 04/01/20 04:00 97.3 84 15 94/50 (65) 94 04/01/20 04:00 80 04/01/20 00:00 87 04/01/20 00:00 96.9 94 19 103/65 (78) 97 03/31/20 21:00 Room Air 03/31/20 20:00 87 03/31/20 20:00 97.2 91 16 105/39 (61) 95 03/31/20 16:00 88 03/31/20 16:00 97.4 79 18 125/63 (83) 95 I&O Intake and Output 03/31/20 04/01/20 19:00 07:00 Intake Total 500 ml 60 ml Balance 500 ml 60 ml Intake Oral 500 ml 60 ml # Voids 3 3 # Bowel Movements 2 2 Dressing: saturated Cardiovascular: RSR Respiratory: decreased breath sounds Abdomen: non-tender, present bowel sounds, non-distended Extremities: no edema, no tenderness, no cyanosis Laboratory Tests Test 03/31/20 16:01 04/01/20 05:00 04/01/20 11:40 POC Whole Blood Glucose 216 MG/DL (74-106) H 185 MG/DL (74-106) H White Blood Count 9.4 K/UL (4.8-10.8) Red Blood Count 5.22 M/UL (4.20-5.40) Hemoglobin 14.3 G/DL (12.0-16.0) Hematocrit 44.1 % (37.0-47.0) Mean Corpuscular Volume 84 FL (80-99) Mean Corpuscular Hemoglobin 27.4 PG (27.0-31.0) Mean Corpuscular Hemoglobin Concent 32.5 G/DL (32.0-36.0) Red Cell Distribution Width 14.1 % (11.6-14.8) Platelet Count 225 K/UL (150-450) Mean Platelet Volume 7.0 FL (6.5-10.1) Neutrophils (%) (Auto) 80.6 % (45.0-75.0) H Lymphocytes (%) (Auto) 8.9 % (20.0-45.0) L Monocytes (%) (Auto) 9.8 % (1.0-10.0) Eosinophils (%) (Auto) 0.5 % (0.0-3.0) Basophils (%) (Auto) 0.4 % (0.0-2.0) Sodium Level 135 MMOL/L (136-145) L Potassium Level 4.0 MMOL/L (3.5-5.1) Chloride Level 100 MMOL/L (98-107) Carbon Dioxide Level 21 MMOL/L (21-32) Anion Gap 14 mmol/L (5-15) Blood Urea Nitrogen 76 mg/dL (7-18) H Creatinine 2.2 MG/DL (0.55-1.30) #H Estimat Glomerular Filtration Rate 21.4 mL/min (>60) Glucose Level 203 MG/DL (74-106) H Calcium Level 9.1 MG/DL (8.5-10.1) Pro-B-Type Natriuretic Peptide 853 pg/mL (0-125) H Plan Problems: (1) Pneumonia (2) Coronavirus infection (3) COVID-19 Assessment & Plan: as per ID (4) Abnormal LFTs Assessment & Plan: US abd ordered pending results trend lft's exam with grimace upon abd exam general no worse with RUQ lip / rochelle okay for diet will follow with recs thank you Gallbladder has been removed Common bile duct measures 12 mm in diameter. No intrahepatic biliary ductal dilatation. Liver demonstrates somewhat increased echogenicity, no focal abnormality. Portal vein and hepatic veins are patent. Pancreas is unremarkable. Spleen is unremarkable. Left kidney measures 10.3 cm in length. Right kidney measures 8.7 cm length. Both kidneys demonstrate normal echogenicity, mild cortical thinning. There is no hydronephrosis. No focal abnormality . The aorta is partially obscured. Impression: Absent gallbladder. Dilated extra hepatic ducts are likely related to age and postcholecystectomy state, but downstream obstruction also possible. Consider MRCP if clinically indicated Liver demonstrates diffusely increased echogenicity, consistent with diffuse hepatocellular disease, most likely fatty change.. Mild thinning of the renal cortices. Note incomplete visualization of the abdominal aorta DAILY ESTIMATED NEEDS: Needs based on Obese, cardiac, DM 66kg abw 20-25 kcals/kg 4438-3849 total kcals 1-1.5 g protein/kg 66-99 g total protein 20-25 mL/kg 7782-2920 total fluid mLs NUTRITION DIAGNOSIS: Altered nutrition related lab values r/t clinical status, DM as evidenced by elev BGs (203, 173, 192), pt on long and short acting insulin. CURRENT DIET:CCHO LOW, mech soft chopped PO DIET RECOMMENDATIONS: Maintain CCHO LOW diet (Texture as tolerated or per DISBURSING AGENT) ADDITIONAL RECOMMENDATIONS: 1) Daily calibrated bedscale wt 2) Monitor PO intake and tolerance closely- variable, COVID-19 positive 3) F/up w/ WC eval add MVI x1 4) Monitor BGs w/ long acting and short acting insulin, need for adjustment Jake Rodríguez Apr 01, 2020 15:29
[2020-04-01 16:00] VITALS: BP 110/59
--- NOTE | 2020-04-01 18:43 | Infectious Diseases Prog Note ---
Assessment/Plan Assessment/Plan ASSESSMENT AND PLAN: 1. e.coli uti, covid-19 infection, chf > pna - ceftriaxone - day # 3 antibiotics, diuresis - monitor clinically, hypoxia, labs, and chest x-ray - clinically stable, saturations good on RA 2. covid-19 isolation - proper PPE's worn 3. Diabetes. Blood sugar treatment per primary care team. 4. Hyponatremia. 5. Hypertension. Blood pressure treatment per primary care team. 6. Dyslipidemia. 7. Diastolic CHF. 8. Edema. 9. Obesity. 10. Allergies to morphine and tape. 11. Social history negative. 12. Family history is noncontributory. 13. MAR is noted. 14. Case discussed with RN. 15. COVID isolation. 16. Case discussed with Dr. Peña. 17. Notes and records reviewed. Orders were reviewed. Subjective Constitutional: Reports: fatigue; Denies: fever HEENT: Denies: congestion Respiratory: Denies: shortness of breath Cardiovascular: Denies: chest pain Gastrointestinal/Abdominal: Denies: nausea, vomiting, diarrhea Genitourinary: Reports: other - no cruz Psychiatric: Denies: depression Skin: Denies: rash Hematologic: Denies: bleeding Musculoskeletal: Denies: pain Allergies: Coded Allergies: MORPHINE (Verified Allergy, Unknown, 10/27/19) Uncoded Allergies: TAPE (Allergy, Unknown, 10/27/19) Objective Last 24 Hour Vital Signs Date Time Temp Pulse Resp B/P (MAP) Pulse Ox O2 Delivery O2 Flow Rate FiO2 04/01/20 12:00 84 04/01/20 12:00 97.0 83 20 120/61 (80) 95 04/01/20 08:29 Room Air 04/01/20 08:00 97.1 82 18 98/61 (73) 96 04/01/20 08:00 85 04/01/20 04:00 97.3 84 15 94/50 (65) 94 04/01/20 04:00 80 04/01/20 00:00 87 04/01/20 00:00 96.9 94 19 103/65 (78) 97 03/31/20 21:00 Room Air 03/31/20 20:00 87 03/31/20 20:00 97.2 91 16 105/39 (61) 95 Height (Feet): 5 Height (Inches): 3.00 Weight (Pounds): 235 General Appearance: no acute distress HEENT: normocephalic, atraumatic, anicteric, mucous membranes moist Respiratory/Chest: no respiratory distress, no accessory muscle use, crackles/rales, rhonchi - bilaterally Cardiovascular: normal rate, regular rhythm, no gallop/murmur, no JVD Abdomen: normal bowel sounds, soft, non tender, no organomegaly, non distended Genitourinary: other - no cruz Extremities: no cyanosis Skin: no rash Neurologic/Psychiatric: pulverizer tender II-XII grossly normal, alert, responsive Lymphatic: no neck adenopathy Musculoskeletal: no effusion Chest x-ray - 03/30/20 - Procedure: XRAY Chest 1v Indication: Cough Technique: One view of the chest Comparison: 03/29/2020 Findings: Bilateral infiltrates versus edema appears slightly improved since the prior exam. Ossifications in the right perihilar region, left chest pacemaker are again demonstrated. Impression: Interim partial improvement of previously demonstrated bilateral infiltrates versus edema Microbiology Date/Time Source Procedure Growth Status 03/31/20 04:45 Stool Clostridium difficile Toxin Assay - Final Complete 03/30/20 07:30 Nasopharynx SARS-CoV-2 RdRp Gene Assay - Final Complete 03/30/20 00:15 Blood Blood Culture - Preliminary NO GROWTH AFTER 24 HOURS Resulted 03/30/20 00:10 Urine,Clean Catch Urine Culture - Final Escherichia Coli Complete 03/30/20 00:05 Nasopharynx Coronavirus COVID-19 PCR (SPENSER) - Final Complete 03/30/20 00:00 Rectum - Final NO CARBAPENEM-RESISTANT ENTEROBACTERI... Complete 03/30/20 00:00 Rectum VRE Culture - Final NO VANCOMYCIN RESISTANT ENTEROCOCCUS ... Complete 03/30/20 00:00 Nasal Nares MRSA Culture - Final NO METHICILLIN RESISTANT STAPH AUREUS... Complete 03/30/20 00:00 Blood Blood Culture - Preliminary NO GROWTH AFTER 24 HOURS Resulted Laboratory Tests Test 04/01/20 05:00 04/01/20 11:40 04/01/20 16:20 White Blood Count 9.4 K/UL (4.8-10.8) Red Blood Count 5.22 M/UL (4.20-5.40) Hemoglobin 14.3 G/DL (12.0-16.0) Hematocrit 44.1 % (37.0-47.0) Mean Corpuscular Volume 84 FL (80-99) Mean Corpuscular Hemoglobin 27.4 PG (27.0-31.0) Mean Corpuscular Hemoglobin Concent 32.5 G/DL (32.0-36.0) Red Cell Distribution Width 14.1 % (11.6-14.8) Platelet Count 225 K/UL (150-450) Mean Platelet Volume 7.0 FL (6.5-10.1) Neutrophils (%) (Auto) 80.6 % (45.0-75.0) H Lymphocytes (%) (Auto) 8.9 % (20.0-45.0) L Monocytes (%) (Auto) 9.8 % (1.0-10.0) Eosinophils (%) (Auto) 0.5 % (0.0-3.0) Basophils (%) (Auto) 0.4 % (0.0-2.0) Sodium Level 135 MMOL/L (136-145) L Potassium Level 4.0 MMOL/L (3.5-5.1) Chloride Level 100 MMOL/L (98-107) Carbon Dioxide Level 21 MMOL/L (21-32) Anion Gap 14 mmol/L (5-15) Blood Urea Nitrogen 76 mg/dL (7-18) H Creatinine 2.2 MG/DL (0.55-1.30) #H Estimat Glomerular Filtration Rate 21.4 mL/min (>60) Glucose Level 203 MG/DL (74-106) H Calcium Level 9.1 MG/DL (8.5-10.1) Pro-B-Type Natriuretic Peptide 853 pg/mL (0-125) H POC Whole Blood Glucose 185 MG/DL (74-106) H 203 MG/DL (74-106) H Current Medications Medications (Trade) Dose Ordered Sig/Tiburcio Route PRN Reason Start Time Stop Time Status Last Admin Dose Admin Acetaminophen (Tylenol) 650 mg Q6H PRN ORAL For Pain 03/30/20 10:30 04/29/20 10:29 Albuterol/ Ipratropium (Combivent Respimat) 1 puff Q6HR INH 03/30/20 12:00 04/29/20 11:59 04/01/20 17:54 Ceftriaxone Sodium 1 gm/ Dextrose 50 ml @ 100 mls/hr Q24H IVPB 03/31/20 01:00 04/07/20 00:59 04/01/20 01:20 Dextrose (Dextrose 50%) 25 ml Q30M PRN IV Hypoglycemia 03/30/20 10:30 06/28/20 10:29 Dextrose (Dextrose 50%) 50 ml Q30M PRN IV Hypoglycemia 03/30/20 10:30 06/28/20 10:29 Escitalopram Oxalate (Lexapro) 10 mg DAILY ORAL 03/30/20 10:30 04/29/20 10:29 04/01/20 09:33 Gabapentin (Neurontin) 300 mg THREE TIMES A DAY ORAL 03/30/20 13:00 04/29/20 12:59 04/01/20 17:54 Heparin Sodium (Porcine) (Heparin 5000 units/ml) 5,000 units EVERY 12 HOURS SUBQ 03/30/20 21:00 05/14/20 20:59 04/01/20 09:33 Hydralazine HCl (Apresoline) 10 mg Q4H PRN IV For High Blood Pressure 03/30/20 10:45 06/28/20 10:44 Insulin Aspart (NovoLOG) BEFORE MEALS AND HS SUBQ 03/30/20 11:30 06/28/20 11:29 04/01/20 16:39 Insulin Detemir (Levemir) 10 units DAILY SUBQ 03/30/20 16:00 06/28/20 15:59 04/01/20 09:34 Avelino Puckett MD Apr 01, 2020 18:43
[2020-04-01 20:00] VITALS: BP_SYST 120; BP_SYST 99; BP_DIAS 51; BP_DIAS 63
[2020-04-02] VITALS (7 sets, daily range): BP systolic 97–120; BP diastolic 50–75
[2020-04-02] MEDS: cefTRIAXone 1 GM in D5W 50 ML IVPB SCH (02:24)
[2020-04-02 06:14] LABS: BASOPHILS % (AUTO) 0.6 % (0.0-2.0); EOSINOPHILS % (AUTO) 1.8 % (0.0-3.0); HEMATOCRIT 39.7 % (37.0-47.0); HEMOGLOBIN 13.5 G/DL (12.0-16.0); MEAN CORPUSCULAR VOLUME 80 FL (80-99); MONOCYTES % (AUTO) 10.6 % (1.0-10.0); PLATELET COUNT 197 K/UL (150-450); RED BLOOD COUNT 4.93 M/UL (4.20-5.40); RED CELL DISTRIBUTION WIDTH 14.7 % (11.6-14.8); WHITE BLOOD COUNT 7.5 K/UL (4.8-10.8)
[2020-04-02] MEDS: NovoLOG Insulin Flexpen SUBQ SCH ×4 (06:19→21:00)
[2020-04-02 06:31] LABS: CALCIUM 8.7 MG/DL (8.5-10.1); CREATININE 2.6 MG/DL (0.55-1.30); PHOSPHORUS 4.2 MG/DL (2.5-4.9); POTASSIUM 3.7 MMOL/L (3.5-5.1)
--- NOTE | 2020-04-02 09:23 | General Progress Note ---
Subjective Date patient seen: Apr 02, 2020 Constitutional: Denies: no symptoms, chills, diaphoresis, fever, malaise, weakness, other HEENT: Denies: no symptoms, eye pain, blurred vision, tearing, double vision, ear pain, ear discharge, nose pain, nose congestion, throat pain, throat swelling, mouth pain, mouth swelling, other Cardiovascular: Denies: no symptoms, chest pain, edema, irregular heart rate, lightheadedness, palpitations, syncope, other Respiratory: Denies: no symptoms, cough, orthopnea, shortness of breath, SOB with excertion, SOB at rest, sputum, stridor, wheezing, other Gastrointestinal/Abdominal: Denies: no symptoms, abdomen distended, abdominal pain, black stools, tarry stools, blood in stool, constipated, diarrhea, difficulty swallowing, nausea, poor appetite, poor fluid intake, rectal bleeding, vomiting, other Genitourinary: Denies: no symptoms, burning, discharge, frequency, flank pain, hematuria, incontinence, pain, urgency, other Neurologic/Psychiatric: Denies: no symptoms, anxiety, depressed, emotional problems, headache, numbness, paresthesia, pre-existing deficit, seizure, tingling, tremors, weakness, other Endocrine: Denies: no symptoms, excessive sweating, flushing, intolerance to cold, intolerance to heat, increased hunger, increased thirst, increased urine, unexplained weight gain, unexplained weight loss, other Hematologic/Lymphatic: Denies: no symptoms, anemia, easy bleeding, easy bruising, other Allergies: Coded Allergies: MORPHINE (Verified Allergy, Unknown, 10/27/19) Uncoded Allergies: TAPE (Allergy, Unknown, 10/27/19) Subjective remains on oxygen, 1-2 L on NC, we stopped lasix and lisinopril for MARIELY yesterday, received 250 ml NS bolus. BNP rising, worsening MARIELY today with Scr up to 2.6 Objective Last 24 Hour Vital Signs Date Time Temp Pulse Resp B/P (MAP) Pulse Ox O2 Delivery O2 Flow Rate FiO2 04/02/20 04:00 81 04/02/20 04:00 97.7 74 16 101/53 (69) 95 04/02/20 00:00 88 04/02/20 00:00 98.5 83 16 100/50 (67) 98 04/01/20 21:00 Room Air 04/01/20 20:00 83 04/01/20 20:00 97.6 91 18 99/51 (67) 94 04/01/20 16:00 97.5 83 18 110/59 (76) 96 04/01/20 16:00 82 04/01/20 12:00 84 04/01/20 12:00 97.0 83 20 120/61 (80) 95 Intake and Output 04/01/20 04/02/20 19:00 07:00 Intake Total 870 ml 400 ml Balance 870 ml 400 ml Intake Oral 870 ml 400 ml # Voids 2 3 # Bowel Movements 1 1 Laboratory Tests 04/01/20 11:40: POC Whole Blood Glucose 185H 04/01/20 16:20: POC Whole Blood Glucose 203H 04/02/20 04:00: White Blood Count 7.5, Red Blood Count 4.93, Hemoglobin 13.5, Hematocrit 39.7, Mean Corpuscular Volume 80, Mean Corpuscular Hemoglobin 27.5, Mean Corpuscular Hemoglobin Concent 34.1, Red Cell Distribution Width 14.7, Platelet Count 197, Mean Platelet Volume 7.4, Neutrophils (%) (Auto) 70.0, Lymphocytes (%) (Auto) 17.0L, Monocytes (%) (Auto) 10.6H, Eosinophils (%) (Auto) 1.8, Basophils (%) (Auto) 0.6, Sodium Level 137, Potassium Level 3.7, Chloride Level 101, Carbon Dioxide Level 23, Anion Gap 13, Blood Urea Nitrogen 87H, Creatinine 2.6H, Estimat Glomerular Filtration Rate 17.6, Glucose Level 116H, Calcium Level 8.7, Phosphorus Level 4.2, Magnesium Level 2.1 Height (Feet): 5 Height (Inches): 3.00 Weight (Pounds): 235 Objective General Appearance: no apparent distress, alert Lines, tubes and drains: peripheral HEENT: normocephalic, atraumatic, anicteric, mucous membranes moist, PERRL, EOMI Neck: non-tender, normal alignment, supple Respiratory/Chest: chest wall non-tender, lungs clear, normal breath sounds, no respiratory distress Cardiovascular/Chest: normal peripheral pulses Abdomen: normal bowel sounds, non tender, soft Extremities: normal range of motion, non-tender, moderate edema Skin Exam: normal pigmentation Neurologic: substance abuse counselor II-XII grossly normal, no motor/sensory deficits, abnormal gait, alert, responsive Assessment/Plan Status: stable Assessment/Plan: A/ 1.Acute hypoxic respiratory failure 2.Covid 19 Pneumonia 3. Acute on chronic systolic and diastolic CHF 4.UTI 5.Elevated LFTs 6.Hyponatremia 7.MARIELY vs MARIELY on CKD P/ -Admit to telemetry- contact plus isolation -O2 via NC to keep sats >94% -Dexa and remdisivr per ID- holding off and treating CHF -Ceftriaxone for UTI- follow up urine cultures -Nephrology consult -Pulmonary consult -ID consult -Cardiology consult -follow up TTE --> EF 40% -continue to hold lasix -Renal US -Hold lipitor for elevated AST/ALT -Hold lisinopril I spent 40 minutes on this encounter. > 50% spent on counselling and care coordination. Plan of care d/w patient and consultants. I will locate patient's family to update them Mayito Peña M.D. Apr 02, 2020 09:23
[2020-04-02] MEDS: Heparin 5000 units/ml inj SUBQ SCH ×2 (09:45→21:21)
[2020-04-02] MEDS: Levemir Flexpen SUBQ SCH (09:48)
--- NOTE | 2020-04-02 13:25 | Pulmonology Progress Note ---
Subjective ROS Limited/Unobtainable: No Interval Events: None new Constitutional: Reports: fatigue; Denies: fever HEENT: Repors: no symptoms Respiratory: Reports: no symptoms Cardiovascular: Reports: no symptoms Gastrointestinal/Abdominal: Denies: nausea, vomiting, diarrhea Genitourinary: Reports: no symptoms Neurologic: Reports: no symptoms Psychiatric: Denies: depression Skin: Denies: rash Musculoskeletal: Denies: pain Allergies: Coded Allergies: MORPHINE (Verified Allergy, Unknown, 10/27/19) Uncoded Allergies: TAPE (Allergy, Unknown, 10/27/19) Objective Last 24 Hour Vital Signs Date Time Temp Pulse Resp B/P (MAP) Pulse Ox O2 Delivery O2 Flow Rate FiO2 04/02/20 09:00 Room Air 04/02/20 08:00 97.5 79 16 97/51 (66) 95 04/02/20 08:00 78 04/02/20 04:00 81 04/02/20 04:00 97.7 74 16 101/53 (69) 95 04/02/20 00:00 88 04/02/20 00:00 98.5 83 16 100/50 (67) 98 04/01/20 21:00 Room Air 04/01/20 20:00 83 04/01/20 20:00 97.6 91 18 99/51 (67) 94 04/01/20 16:00 97.5 83 18 110/59 (76) 96 04/01/20 16:00 82 Intake and Output 04/01/20 04/02/20 19:00 07:00 Intake Total 870 ml 400 ml Balance 870 ml 400 ml Intake Oral 870 ml 400 ml # Voids 2 3 # Bowel Movements 1 1 Objective pt alert; saturating 96% on RA General Appearance: no acute distress HEENT: normocephalic, other - hard of hearing Respiratory: chest wall non-tender, lungs clear Cardiovascular: normal peripheral pulses Abdomen: normal bowel sounds Extremities: no cyanosis Microbiology Date/Time Source Procedure Growth Status 03/31/20 04:45 Stool Clostridium difficile Toxin Assay - Final Complete Laboratory Tests 04/01/20 16:20: POC Whole Blood Glucose 203H 04/02/20 04:00: White Blood Count 7.5, Red Blood Count 4.93, Hemoglobin 13.5, Hematocrit 39.7, Mean Corpuscular Volume 80, Mean Corpuscular Hemoglobin 27.5, Mean Corpuscular Hemoglobin Concent 34.1, Red Cell Distribution Width 14.7, Platelet Count 197, Mean Platelet Volume 7.4, Neutrophils (%) (Auto) 70.0, Lymphocytes (%) (Auto) 17.0L, Monocytes (%) (Auto) 10.6H, Eosinophils (%) (Auto) 1.8, Basophils (%) (Auto) 0.6, Sodium Level 137, Potassium Level 3.7, Chloride Level 101, Carbon Dioxide Level 23, Anion Gap 13, Blood Urea Nitrogen 87H, Creatinine 2.6H, Estimat Glomerular Filtration Rate 17.6, Glucose Level 116H, Calcium Level 8.7, Phosphorus Level 4.2, Magnesium Level 2.1 Current Medications Medications (Trade) Dose Ordered Sig/Tiburcio Route PRN Reason Start Time Stop Time Status Last Admin Dose Admin Acetaminophen (Tylenol) 650 mg Q6H PRN ORAL For Pain 03/30/20 10:30 04/29/20 10:29 Albuterol/ Ipratropium (Combivent Respimat) 1 puff Q6HR INH 03/30/20 12:00 04/29/20 11:59 04/02/20 12:33 Ceftriaxone Sodium 1 gm/ Dextrose 50 ml @ 100 mls/hr Q24H IVPB 03/31/20 01:00 04/07/20 00:59 04/02/20 02:24 Dextrose (Dextrose 50%) 25 ml Q30M PRN IV Hypoglycemia 03/30/20 10:30 06/28/20 10:29 Dextrose (Dextrose 50%) 50 ml Q30M PRN IV Hypoglycemia 03/30/20 10:30 06/28/20 10:29 Escitalopram Oxalate (Lexapro) 10 mg DAILY ORAL 03/30/20 10:30 04/29/20 10:29 04/02/20 09:42 Gabapentin (Neurontin) 300 mg THREE TIMES A DAY ORAL 03/30/20 13:00 04/29/20 12:59 04/02/20 12:34 Heparin Sodium (Porcine) (Heparin 5000 units/ml) 5,000 units EVERY 12 HOURS SUBQ 03/30/20 21:00 05/14/20 20:59 04/02/20 09:45 Hydralazine HCl (Apresoline) 10 mg Q4H PRN IV For High Blood Pressure 03/30/20 10:45 06/28/20 10:44 Insulin Aspart (NovoLOG) BEFORE MEALS AND HS SUBQ 03/30/20 11:30 06/28/20 11:29 04/02/20 12:11 Insulin Detemir (Levemir) 10 units DAILY SUBQ 03/30/20 16:00 06/28/20 15:59 04/02/20 09:48 Assessment/Plan Assessment/Plan 1. COVID-19 pneumonia. - defer the use of remdesivir to ID specialist. - 03/31/2020 CXR demonstrates partial improvement of infiltrates vs edema 2. History of hypoxemia. - Currently normoxemic on room air - saturating 96% on RA 3. Diabetes mellitus. - Hold off on steroids given her diabetes 4. Hypertension. 5. Hyperlipidemia. 6. Asthma. - On combivent 7. DVT prophylaxis with heparin subcu. 8. Acute renal failure - BUN 76 -> 87 - Cr 2.2 -> 2.6 - Bolus of 250 ml NS given 04/01/2020 am by renal - hold off nephrotoxins per renal - Garcia cath per Dr. Peña Cont monitor lytes We will follow closely The care for this patient was discussed with my supervising physician Seen and examined by Dr. Hightower as well Time spent for this case was approximately 31 minutes Edwin Quinn Apr 02, 2020 13:25
--- NOTE | 2020-04-02 18:25 | Cardiac Electrophysiology PN ---
Assessment/Plan Assessment/Plan 1. Congestive heart failure with BNP of 564. Off Lasix as getting ARF. Echocardiogram EF 40% 2. Hypertension, off Lasix and lisinopril On p.r.n. hydralazine. 3. S/P Med[employer] pacer 2013. Will interrogated after Covid is negative 4. COVID pneumonia, on dexamethasone. 5. Diabetes, on insulin. 6. Hyperlipidemia, on Lipitor. 7. Acute renal failure with BUN/CR 87/2.6 Off Lasix and lisinopril Has Radha RAMIREZ RN Subjective Subjective In Covid isolation on tele. In SR. EF 40-45%. Just had Radha Objective Last 24 Hour Vital Signs Date Time Temp Pulse Resp B/P (MAP) Pulse Ox O2 Delivery O2 Flow Rate FiO2 04/02/20 16:00 97.5 80 18 120/75 (90) 97 04/02/20 13:59 97.8 82 18 100/54 (69) 96 04/02/20 13:59 80 04/02/20 12:00 97.8 80 18 100/54 (69) 95 04/02/20 09:00 Room Air 04/02/20 08:00 97.5 79 16 97/51 (66) 95 04/02/20 08:00 78 04/02/20 04:00 81 04/02/20 04:00 97.7 74 16 101/53 (69) 95 04/02/20 00:00 88 04/02/20 00:00 98.5 83 16 100/50 (67) 98 04/01/20 21:00 Room Air 04/01/20 20:00 83 04/01/20 20:00 97.6 91 18 99/51 (67) 94 Intake and Output 04/01/20 04/02/20 19:00 07:00 Intake Total 870 ml 400 ml Balance 870 ml 400 ml Intake Oral 870 ml 400 ml # Voids 2 3 # Bowel Movements 1 1 Laboratory Tests Test 04/02/20 04:00 04/02/20 16:58 White Blood Count 7.5 K/UL (4.8-10.8) Red Blood Count 4.93 M/UL (4.20-5.40) Hemoglobin 13.5 G/DL (12.0-16.0) Hematocrit 39.7 % (37.0-47.0) Mean Corpuscular Volume 80 FL (80-99) Mean Corpuscular Hemoglobin 27.5 PG (27.0-31.0) Mean Corpuscular Hemoglobin Concent 34.1 G/DL (32.0-36.0) Red Cell Distribution Width 14.7 % (11.6-14.8) Platelet Count 197 K/UL (150-450) Mean Platelet Volume 7.4 FL (6.5-10.1) Neutrophils (%) (Auto) 70.0 % (45.0-75.0) Lymphocytes (%) (Auto) 17.0 % (20.0-45.0) L Monocytes (%) (Auto) 10.6 % (1.0-10.0) H Eosinophils (%) (Auto) 1.8 % (0.0-3.0) Basophils (%) (Auto) 0.6 % (0.0-2.0) Sodium Level 137 MMOL/L (136-145) Potassium Level 3.7 MMOL/L (3.5-5.1) Chloride Level 101 MMOL/L (98-107) Carbon Dioxide Level 23 MMOL/L (21-32) Anion Gap 13 mmol/L (5-15) Blood Urea Nitrogen 87 mg/dL (7-18) H Creatinine 2.6 MG/DL (0.55-1.30) H Estimat Glomerular Filtration Rate 17.6 mL/min (>60) Glucose Level 116 MG/DL (74-106) H Calcium Level 8.7 MG/DL (8.5-10.1) Phosphorus Level 4.2 MG/DL (2.5-4.9) Magnesium Level 2.1 MG/DL (1.8-2.4) POC Whole Blood Glucose Pending Microbiology Date/Time Source Procedure Growth Status 03/31/20 04:45 Stool Clostridium difficile Toxin Assay - Final Complete Objective HEAD AND NECK: Some mild JVD. LUNGS: Coarse rhonchi. CARDIOVASCULAR: Regular S1 and S2 with no gallop or murmur.Pacer in Left subclavian. ABDOMEN: Soft. EXTREMITIES: Mild to moderate edema. Rafiq Cote MD Apr 02, 2020 18:25
--- NOTE | 2020-04-02 18:27 | Nephrology Progress Note ---
Assessment/Plan Plan #Hyponatremia- hypervolumic vs SIADH in the setting of covid #acute on chronic diastolic CHF #COVID infection #HTN #DM #HLD #Obesity - ID eval - pul eval - card eval - HOLD lasix 20 IV BID - continue IV antibiotics per ID - HOLD lisinopril 10mg daily - Bg control - monitor electrolytes - avoid nephrotoxins time spent 65 mins Subjective ROS Limited/Unobtainable: No Constitutional: Reports: weakness HEENT: Denies: no symptoms, eye pain, blurred vision, tearing, double vision, ear pain, ear discharge, nose pain, nose congestion, throat pain, throat swelling, mouth pain, mouth swelling, other Genitourinary: Denies: no symptoms, burning, discharge, frequency, flank pain, hematuria, incontinence, pain, urgency, other Neurologic/Psychiatric: Denies: no symptoms, anxiety, depressed, emotional problems, headache, numbness, paresthesia, pre-existing deficit, seizure, tingling, tremors, weakness, other Subjective BP soft Cr uptrending continue to hold lasix and lisinopril check renal US Objective Objective Last 24 Hour Vital Signs Date Time Temp Pulse Resp B/P (MAP) Pulse Ox O2 Delivery O2 Flow Rate FiO2 04/02/20 16:00 97.5 80 18 120/75 (90) 97 04/02/20 13:59 97.8 82 18 100/54 (69) 96 04/02/20 13:59 80 04/02/20 12:00 97.8 80 18 100/54 (69) 95 04/02/20 09:00 Room Air 04/02/20 08:00 97.5 79 16 97/51 (66) 95 04/02/20 08:00 78 04/02/20 04:00 81 04/02/20 04:00 97.7 74 16 101/53 (69) 95 04/02/20 00:00 88 04/02/20 00:00 98.5 83 16 100/50 (67) 98 04/01/20 21:00 Room Air 04/01/20 20:00 83 04/01/20 20:00 97.6 91 18 99/51 (67) 94 Intake and Output 04/01/20 04/02/20 19:00 07:00 Intake Total 870 ml 400 ml Balance 870 ml 400 ml Intake Oral 870 ml 400 ml # Voids 2 3 # Bowel Movements 1 1 Laboratory Tests 04/02/20 04:00: White Blood Count 7.5, Red Blood Count 4.93, Hemoglobin 13.5, Hematocrit 39.7, Mean Corpuscular Volume 80, Mean Corpuscular Hemoglobin 27.5, Mean Corpuscular Hemoglobin Concent 34.1, Red Cell Distribution Width 14.7, Platelet Count 197, Mean Platelet Volume 7.4, Neutrophils (%) (Auto) 70.0, Lymphocytes (%) (Auto) 17.0L, Monocytes (%) (Auto) 10.6H, Eosinophils (%) (Auto) 1.8, Basophils (%) (Auto) 0.6, Sodium Level 137, Potassium Level 3.7, Chloride Level 101, Carbon Dioxide Level 23, Anion Gap 13, Blood Urea Nitrogen 87H, Creatinine 2.6H, Estimat Glomerular Filtration Rate 17.6, Glucose Level 116H, Calcium Level 8.7, Phosphorus Level 4.2, Magnesium Level 2.1 04/02/20 16:58: POC Whole Blood Glucose [Pending] Height (Feet): 5 Height (Inches): 3.00 Weight (Pounds): 235 Kell Adorno M.D. Apr 02, 2020 18:27
--- NOTE | 2020-04-02 23:08 | Surgery Progress Note ---
Surgery Progress Note Subjective Additional Comments no acute distress states okay Objective Last 24 Hour Vital Signs Date Time Temp Pulse Resp B/P (MAP) Pulse Ox O2 Delivery O2 Flow Rate FiO2 04/02/20 21:00 Room Air 04/02/20 20:00 98.3 84 18 116/61 (79) 93 04/02/20 16:00 97.5 80 18 120/75 (90) 97 04/02/20 13:59 97.8 82 18 100/54 (69) 96 04/02/20 13:59 80 04/02/20 12:00 97.8 80 18 100/54 (69) 95 04/02/20 09:00 Room Air 04/02/20 08:00 97.5 79 16 97/51 (66) 95 04/02/20 08:00 78 04/02/20 04:00 81 04/02/20 04:00 97.7 74 16 101/53 (69) 95 04/02/20 00:00 88 04/02/20 00:00 98.5 83 16 100/50 (67) 98 I&O Intake and Output 04/01/20 04/02/20 19:00 07:00 Intake Total 870 ml 400 ml Balance 870 ml 400 ml Intake Oral 870 ml 400 ml # Voids 2 3 # Bowel Movements 1 1 Dressing: saturated Cardiovascular: RSR Respiratory: decreased breath sounds Abdomen: non-tender, present bowel sounds Extremities: no edema, no tenderness, no cyanosis Laboratory Tests Test 04/02/20 04:00 04/02/20 16:58 04/02/20 21:18 White Blood Count 7.5 K/UL (4.8-10.8) Red Blood Count 4.93 M/UL (4.20-5.40) Hemoglobin 13.5 G/DL (12.0-16.0) Hematocrit 39.7 % (37.0-47.0) Mean Corpuscular Volume 80 FL (80-99) Mean Corpuscular Hemoglobin 27.5 PG (27.0-31.0) Mean Corpuscular Hemoglobin Concent 34.1 G/DL (32.0-36.0) Red Cell Distribution Width 14.7 % (11.6-14.8) Platelet Count 197 K/UL (150-450) Mean Platelet Volume 7.4 FL (6.5-10.1) Neutrophils (%) (Auto) 70.0 % (45.0-75.0) Lymphocytes (%) (Auto) 17.0 % (20.0-45.0) L Monocytes (%) (Auto) 10.6 % (1.0-10.0) H Eosinophils (%) (Auto) 1.8 % (0.0-3.0) Basophils (%) (Auto) 0.6 % (0.0-2.0) Sodium Level 137 MMOL/L (136-145) Potassium Level 3.7 MMOL/L (3.5-5.1) Chloride Level 101 MMOL/L (98-107) Carbon Dioxide Level 23 MMOL/L (21-32) Anion Gap 13 mmol/L (5-15) Blood Urea Nitrogen 87 mg/dL (7-18) H Creatinine 2.6 MG/DL (0.55-1.30) H Estimat Glomerular Filtration Rate 17.6 mL/min (>60) Glucose Level 116 MG/DL (74-106) H Calcium Level 8.7 MG/DL (8.5-10.1) Phosphorus Level 4.2 MG/DL (2.5-4.9) Magnesium Level 2.1 MG/DL (1.8-2.4) POC Whole Blood Glucose Pending 136 MG/DL (74-106) H Plan Problems: (1) Pneumonia (2) Coronavirus infection (3) COVID-19 Assessment & Plan: as per ID (4) Abnormal LFTs Assessment & Plan: US abd ordered pending results trend lft's exam with grimace upon abd exam general no worse with RUQ lip / rochelle okay for diet will follow with recs thank you Gallbladder has been removed Common bile duct measures 12 mm in diameter. No intrahepatic biliary ductal dilatation. Liver demonstrates somewhat increased echogenicity, no focal abnormality. Portal vein and hepatic veins are patent. Pancreas is unremarkable. Spleen is unremarkable. Left kidney measures 10.3 cm in length. Right kidney measures 8.7 cm length. Both kidneys demonstrate normal echogenicity, mild cortical thinning. There is no hydronephrosis. No focal abnormality . The aorta is partially obscured. Impression: Absent gallbladder. Dilated extra hepatic ducts are likely related to age and postcholecystectomy state, but downstream obstruction also possible. Consider MRCP if clinically indicated Liver demonstrates diffusely increased echogenicity, consistent with diffuse hepatocellular disease, most likely fatty change.. Mild thinning of the renal cortices. Note incomplete visualization of the abdominal aorta DAILY ESTIMATED NEEDS: Needs based on Obese, cardiac, DM 66kg abw 20-25 kcals/kg 7546-3980 total kcals 1-1.5 g protein/kg 66-99 g total protein 20-25 mL/kg 7998-1280 total fluid mLs NUTRITION DIAGNOSIS: Altered nutrition related lab values r/t clinical status, DM as evidenced by elev BGs (203, 173, 192), pt on long and short acting insulin. CURRENT DIET:[facility] LOW[facility] DIET RECOMMENDATIONS: Maintain CCHO LOW diet (Texture as tolerated or per ASIAN ART CURATOR) ADDITIONAL RECOMMENDATIONS: 1) Daily calibrated bedscale wt 2) Monitor PO intake and tolerance closely- variable, COVID-19 positive 3) F/up w/ WC eval add MVI x1 4) Monitor BGs w/ long acting and short acting insulin, need for adjustment Jake Rodríguez Apr 02, 2020 23:08
[2020-04-03] VITALS: BP 108/55
[2020-04-03] MEDS: cefTRIAXone 1 GM in D5W 50 ML IVPB SCH (00:44)
[2020-04-03 04:00] VITALS: BP 108/58
[2020-04-03] MEDS: NovoLOG Insulin Flexpen SUBQ SCH ×4 (06:09→20:52)
[2020-04-03 08:00] VITALS: BP 159/63
[2020-04-03 08:53] LABS: CALCIUM 9.1 MG/DL (8.5-10.1); CREATININE 1.6 MG/DL (0.55-1.30); POTASSIUM 3.6 MMOL/L (3.5-5.1)
--- NOTE | 2020-04-03 09:56 | Pulmonology Progress Note ---
Subjective ROS Limited/Unobtainable: No Interval Events: None new Constitutional: Reports: fatigue; Denies: fever HEENT: Repors: no symptoms Respiratory: Reports: no symptoms Cardiovascular: Reports: no symptoms Gastrointestinal/Abdominal: Denies: nausea, vomiting, diarrhea Genitourinary: Reports: no symptoms Neurologic: Reports: no symptoms Psychiatric: Denies: depression Skin: Denies: rash Musculoskeletal: Denies: pain Allergies: Coded Allergies: MORPHINE (Verified Allergy, Unknown, 10/27/19) Uncoded Allergies: TAPE (Allergy, Unknown, 10/27/19) Objective Last 24 Hour Vital Signs Date Time Temp Pulse Resp B/P (MAP) Pulse Ox O2 Delivery O2 Flow Rate FiO2 04/03/20 08:00 96.4 96 20 159/63 (95) 93 04/03/20 04:00 98.2 80 18 108/58 (75) 92 04/03/20 00:00 98.1 85 18 108/55 (72) 92 04/02/20 21:00 Room Air 04/02/20 20:00 98.3 84 18 116/61 (79) 93 04/02/20 16:00 97.5 80 18 120/75 (90) 97 04/02/20 13:59 97.8 82 18 100/54 (69) 96 04/02/20 13:59 80 04/02/20 12:00 97.8 80 18 100/54 (69) 95 Intake and Output 04/02/20 04/03/20 19:00 07:00 Intake Total 480 ml 360 ml Output Total 200 ml 375 ml Balance 280 ml -15 ml Intake Oral 480 ml 360 ml Output Urine Total 200 ml 375 ml # Voids 1 # Bowel Movements 1 Objective 04/03/2020 saturating 92% on RA pt alert; saturating 96% on RA General Appearance: no acute distress HEENT: normocephalic, other - hard of hearing Respiratory: chest wall non-tender, lungs clear Cardiovascular: normal peripheral pulses Abdomen: normal bowel sounds Extremities: no cyanosis Laboratory Tests 04/02/20 16:58: POC Whole Blood Glucose [Pending] 04/02/20 21:18: POC Whole Blood Glucose 136H 04/03/20 04:00: Sodium Level 137, Potassium Level 3.6, Chloride Level 102, Carbon Dioxide Level 22, Anion Gap 13, Blood Urea Nitrogen 74H, Creatinine 1.6H, Estimat Glomerular Filtration Rate 30.9, Glucose Level 132H, Calcium Level 9.1, Magnesium Level 2.2, Pro-B-Type Natriuretic Peptide 729H 04/03/20 06:05: POC Whole Blood Glucose 125H Current Medications Medications (Trade) Dose Ordered Sig/Tiburcio Route PRN Reason Start Time Stop Time Status Last Admin Dose Admin Acetaminophen (Tylenol) 650 mg Q6H PRN ORAL For Pain 03/30/20 10:30 04/29/20 10:29 Albuterol/ Ipratropium (Combivent Respimat) 1 puff Q6HR INH 03/30/20 12:00 04/29/20 11:59 04/03/20 06:09 Ceftriaxone Sodium 1 gm/ Dextrose 50 ml @ 100 mls/hr Q24H IVPB 03/31/20 01:00 04/07/20 00:59 04/03/20 00:44 Dextrose (Dextrose 50%) 25 ml Q30M PRN IV Hypoglycemia 03/30/20 10:30 06/28/20 10:29 Dextrose (Dextrose 50%) 50 ml Q30M PRN IV Hypoglycemia 03/30/20 10:30 06/28/20 10:29 Escitalopram Oxalate (Lexapro) 10 mg DAILY ORAL 03/30/20 10:30 04/29/20 10:29 04/02/20 09:42 Gabapentin (Neurontin) 300 mg THREE TIMES A DAY ORAL 03/30/20 13:00 04/29/20 12:59 04/02/20 16:56 Heparin Sodium (Porcine) (Heparin 5000 units/ml) 5,000 units EVERY 12 HOURS SUBQ 03/30/20 21:00 05/14/20 20:59 04/02/20 21:21 Hydralazine HCl (Apresoline) 10 mg Q4H PRN IV For High Blood Pressure 03/30/20 10:45 06/28/20 10:44 Insulin Aspart (NovoLOG) BEFORE MEALS AND HS SUBQ 03/30/20 11:30 06/28/20 11:29 04/02/20 17:05 Insulin Detemir (Levemir) 10 units DAILY SUBQ 03/30/20 16:00 06/28/20 15:59 04/02/20 09:48 Assessment/Plan Assessment/Plan 1. COVID-19 pneumonia. - defer the use of remdesivir to ID specialist. - 03/31/2020 CXR demonstrates partial improvement of infiltrates vs edema 2. History of hypoxemia. - Currently normoxemic on room air - saturating 92% on RA 3. Diabetes mellitus. - Hold off on steroids given her diabetes 4. Hypertension. - 04/03/2020 159/93 (95) 5. Hyperlipidemia. 6. Asthma. - On combivent 7. DVT prophylaxis with heparin subcu. 8. Acute renal failure; improving - BUN 76 -> 87 -> 74 - Cr 2.2 -> 2.6 -> 1.6 - Bolus of 250 ml NS given 04/01/2020 am by renal - hold off nephrotoxins per renal - Garcia cath per Dr. Peña Cont monitor lytes We will follow closely The care for this patient was discussed with my supervising physician Seen and examined by Dr. Hightower as well The history of Milagro Cabrales has been reviewed and management options for her have been examined and discussed by Lorne Hightower. I have personally examined and interviewed the patient. Time spent for this case was approximately 31 minutes Edwin Quinn Apr 03, 2020 09:56 Lorne Hightower MD Apr 03, 2020 16:51
[2020-04-03] MEDS: Heparin 5000 units/ml inj SUBQ SCH ×2 (10:22→20:54)
[2020-04-03] MEDS: Levemir Flexpen SUBQ SCH (10:27)
--- NOTE | 2020-04-03 10:58 | General Progress Note ---
Subjective Date patient seen: Apr 03, 2020 ROS Limited/Unobtainable: No Constitutional: Denies: no symptoms, chills, diaphoresis, fever, malaise, weakness, other HEENT: Denies: no symptoms, eye pain, blurred vision, tearing, double vision, ear pain, ear discharge, nose pain, nose congestion, throat pain, throat swelling, mouth pain, mouth swelling, other Cardiovascular: Denies: no symptoms, chest pain, edema, irregular heart rate, lightheadedness, palpitations, syncope, other Respiratory: Denies: no symptoms, cough, orthopnea, shortness of breath, SOB with excertion, SOB at rest, sputum, stridor, wheezing, other Gastrointestinal/Abdominal: Denies: no symptoms, abdomen distended, abdominal pain, black stools, tarry stools, blood in stool, constipated, diarrhea, difficulty swallowing, nausea, poor appetite, poor fluid intake, rectal bleeding, vomiting, other Genitourinary: Denies: no symptoms, burning, discharge, frequency, flank pain, hematuria, incontinence, pain, urgency, other Neurologic/Psychiatric: Denies: no symptoms, anxiety, depressed, emotional pr oblems, headache, numbness, paresthesia, pre-existing deficit, seizure, tingling, tremors, weakness, other Endocrine: Denies: no symptoms, excessive sweating, flushing, intolerance to cold, intolerance to heat, increased hunger, increased thirst, increased urine, unexplained weight gain, unexplained weight loss, other Hematologic/Lymphatic: Denies: no symptoms, anemia, easy bleeding, easy bruising, other Allergies: Coded Allergies: MORPHINE (Verified Allergy, Unknown, 10/27/19) Uncoded Allergies: TAPE (Allergy, Unknown, 10/27/19) Subjective no acute events overnight saturating 93% on room air urinating well, Net balance + 200 ml Scr improving Objective Last 24 Hour Vital Signs Date Time Temp Pulse Resp B/P (MAP) Pulse Ox O2 Delivery O2 Flow Rate FiO2 04/03/20 08:00 96.4 96 20 159/63 (95) 93 04/03/20 04:00 98.2 80 18 108/58 (75) 92 04/03/20 00:00 98.1 85 18 108/55 (72) 92 04/02/20 21:00 Room Air 12/5/20 20:00 98.3 84 18 116/61 (79) 93 04/02/20 16:00 97.5 80 18 120/75 (90) 97 04/02/20 13:59 97.8 82 18 100/54 (69) 96 04/02/20 13:59 80 04/02/20 12:00 97.8 80 18 100/54 (69) 95 Intake and Output 04/02/20 04/03/20 19:00 07:00 Intake Total 480 ml 360 ml Output Total 200 ml 375 ml Balance 280 ml -15 ml Intake Oral 480 ml 360 ml Output Urine Total 200 ml 375 ml # Voids 1 # Bowel Movements 1 Laboratory Tests 04/02/20 16:58: POC Whole Blood Glucose [Pending] 04/02/20 21:18: POC Whole Blood Glucose 136H 04/03/20 04:00: Sodium Level 137, Potassium Level 3.6, Chloride Level 102, Carbon Dioxide Level 22, Anion Gap 13, Blood Urea Nitrogen 74H, Creatinine 1.6H, Estimat Glomerular Filtration Rate 30.9, Glucose Level 132H, Calcium Level 9.1, Magnesium Level 2 .2, Pro-B-Type Natriuretic Peptide 729H 04/03/20 06:05: POC Whole Blood Glucose 125H 04/03/20 10:43: POC Whole Blood Glucose [Pending] Height (Feet): 5 Height (Inches): 3.00 Weight (Pounds): 235 Objective General Appearance: no apparent distress, alert Lines, tubes and drains: peripheral HEENT: normocephalic, atraumatic, anicteric, mucous membranes moist, PERRL, EOMI Neck: non-tender, normal alignment, supple Respiratory/Chest: chest wall non-tender, lungs clear, normal breath sounds, no respiratory distress Cardiovascular/Chest: normal peripheral pulses Abdomen: normal bowel sounds, non tender, soft Extremities: normal range of motion, non-tender, trace edema Skin Exam: normal pigmentation Neurologic: school health assistant II-XII grossly normal, no motor/sensory deficits, abnormal gait, alert, responsive Assessment/Plan Status: stable Assessment/Plan: A/ 1.Acute hypoxic respiratory failure-resolved 2.Covid 19 Pneumonia 3. Acute on chronic systolic and diastolic CHF 4.UTI- E.Coli 5.Elevated LFTs 6.Hyponatremia 7.MARIELY vs MARIELY on CKD- improving P/ - contact plus isolation -O2 via NC to keep sats >94%- now weaned off -Dexamethasone and remdisivir per ID- holding off and treating CHF -Ceftriaxone for UTI- follow up urine cultures--> E.Coli, sensitive to ceftriaxone -Nephrology consult -Pulmonary consult -ID consult -Cardiology consult -follow up TTE --> EF 40% -continue to hold lasix -Renal US pending -Hold lipitor for elevated AST/ALT -Hold lisinopril I spent 40 minutes on this encounter. > 50% spent on counselling and care coordination. Plan of care d/w patient and consultants. I will locate patient's family to update them Mayito Peña M.D. Apr 03, 2020 10:58
[2020-04-03 12:00] VITALS: BP 127/74
--- NOTE | 2020-04-03 13:32 | Nephrology Progress Note ---
Assessment/Plan Plan #Hyponatremia- hypervolumic vs SIADH in the setting of covid #acute on chronic diastolic CHF #COVID infection #HTN #DM #HLD #Obesity - ID eval - pul eval - card eval - HOLD lasix 20 IV BID - continue IV antibiotics per ID - HOLD lisinopril 10mg daily - Bg control - monitor electrolytes - avoid nephrotoxins time spent 65 mins Subjective ROS Limited/Unobtainable: No Constitutional: Reports: weakness Subjective BP soft Cr down to 1.6 Objective Objective Last 24 Hour Vital Signs Date Time Temp Pulse Resp B/P (MAP) Pulse Ox O2 Delivery O2 Flow Rate FiO2 04/03/20 12:00 98.0 102 20 127/74 (91) 93 04/03/20 09:00 Room Air 04/03/20 08:00 96.4 96 20 159/63 (95) 93 04/03/20 04:00 98.2 80 18 108/58 (75) 92 04/03/20 00:00 98.1 85 18 108/55 (72) 92 04/02/20 21:00 Room Air 04/02/20 20:00 98.3 84 18 116/61 (79) 93 04/02/20 16:00 97.5 80 18 120/75 (90) 97 04/02/20 13:59 97.8 82 18 100/54 (69) 96 04/02/20 13:59 80 Intake and Output 04/02/20 04/03/20 19:00 07:00 Intake Total 480 ml 360 ml Output Total 200 ml 375 ml Balance 280 ml -15 ml Intake Oral 480 ml 360 ml Output Urine Total 200 ml 375 ml # Voids 1 # Bowel Movements 1 Laboratory Tests 04/02/20 16:58: POC Whole Blood Glucose [Pending] 04/02/20 21:18: POC Whole Blood Glucose 136H 04/03/20 04:00: Sodium Level 137, Potassium Level 3.6, Chloride Level 102, Carbon Dioxide Level 22, Anion Gap 13, Blood Urea Nitrogen 74H, Creatinine 1.6H, Estimat Glomerular Filtration Rate 30.9, Glucose Level 132H, Calcium Level 9.1, Magnesium Level 2.2, Pro-B-Type Natriuretic Peptide 729H 04/03/20 06:05: POC Whole Blood Glucose 125H 04/03/20 10:43: POC Whole Blood Glucose [Pending] Height (Feet): 5 Height (Inches): 3.00 Weight (Pounds): 235 Kell Adorno M.D. Apr 03, 2020 13:32
[2020-04-03 16:00] VITALS: BP 118/64
--- NOTE | 2020-04-03 16:13 | Surgery Progress Note ---
Surgery Progress Note Subjective Additional Comments not taking in much po intake no n/v comfortable Objective Last 24 Hour Vital Signs Date Time Temp Pulse Resp B/P (MAP) Pulse Ox O2 Delivery O2 Flow Rate FiO2 04/03/20 12:00 98.0 102 20 127/74 (91) 93 04/03/20 09:00 Room Air 04/03/20 08:00 96.4 96 20 159/63 (95) 93 04/03/20 04:00 98.2 80 18 108/58 (75) 92 04/03/20 00:00 98.1 85 18 108/55 (72) 92 04/02/20 21:00 Room Air 04/02/20 20:00 98.3 84 18 116/61 (79) 93 I&O Intake and Output 04/02/20 04/03/20 18:59 06:59 Intake Total 480 ml 360 ml Output Total 200 ml 375 ml Balance 280 ml -15 ml Intake Oral 480 ml 360 ml Output Urine Total 200 ml 375 ml # Voids 1 # Bowel Movements 1 Dressing: saturated Cardiovascular: RSR Respiratory: decreased breath sounds Abdomen: non-tender, present bowel sounds Extremities: no edema, no tenderness, no cyanosis Laboratory Tests Test 04/02/20 16:58 04/02/20 21:18 04/03/20 04:00 04/03/20 06:05 POC Whole Blood Glucose Pending 136 MG/DL (74-106) H 125 MG/DL (74-106) H Sodium Level 137 MMOL/L (136-145) Potassium Level 3.6 MMOL/L (3.5-5.1) Chloride Level 102 MMOL/L (98-107) Carbon Dioxide Level 22 MMOL/L (21-32) Anion Gap 13 mmol/L (5-15) Blood Urea Nitrogen 74 mg/dL (7-18) H Creatinine 1.6 MG/DL (0.55-1.30) H Estimat Glomerular Filtration Rate 30.9 mL/min (>60) Glucose Level 132 MG/DL (74-106) H Calcium Level 9.1 MG/DL (8.5-10.1) Magnesium Level 2.2 MG/DL (1.8-2.4) Pro-B-Type Natriuretic Peptide 729 pg/mL (0-125) H Test 04/03/20 10:43 POC Whole Blood Glucose Pending Plan Problems: (1) Pneumonia (2) Coronavirus infection (3) COVID-19 Assessment & Plan: as per ID (4) Abnormal LFTs Assessment & Plan: US abd ordered pending results trend lft's exam with grimace upon abd exam general no worse with RUQ lip / rochelle okay for diet will follow with recs thank you Gallbladder has been removed Common bile duct measures 12 mm in diameter. No intrahepatic biliary ductal dilatation. Liver demonstrates somewhat increased echogenicity, no focal abnormality. Portal vein and hepatic veins are patent. Pancreas is unremarkable. Spleen is unremarkable. Left kidney measures 10.3 cm in length. Right kidney measures 8.7 cm length. Both kidneys demonstrate normal echogenicity, mild cortical thinning. There is no hydronephrosis. No focal abnormality . The aorta is partially obscured. Impression: Absent gallbladder. Dilated extra hepatic ducts are likely related to age and postcholecystectomy state, but downstream obstruction also possible. Consider MRCP if clinically indicated Liver demonstrates diffusely increased echogenicity, consistent with diffuse hepatocellular disease, most likely fatty change.. Mild thinning of the renal cortices. Note incomplete visualization of the abdominal aorta DAILY ESTIMATED NEEDS: Needs based on Obese, cardiac, DM 66kg abw 20-25 kcals/kg 6376-8389 total kcals 1-1.5 g protein/kg 66-99 g total protein 20-25 mL/kg 7349-1131 total fluid mLs NUTRITION DIAGNOSIS: Altered nutrition related lab values r/t clinical status, DM as evidenced by elev BGs (203, 173, 192), pt on long and short acting insulin. CURRENT DIET:CCHO LOW, [facility] soft chopped PO DIET RECOMMENDATIONS: Maintain CCHO LOW diet (Texture as tolerated or per ENTERTAINMENT USHER) ADDITIONAL RECOMMENDATIONS: 1) Daily calibrated bedscale wt 2) Monitor PO intake and tolerance closely- variable, COVID-19 positive 3) F/up w/ WC eval add MVI x1 4) Monitor BGs w/ long acting and short acting insulin, need for adjustment Jake Rodríguez Apr 03, 2020 16:13
[2020-04-03 20:00] VITALS: BP 110/64
--- NOTE | 2020-04-03 20:36 | Cardiac Electrophysiology PN ---
Assessment/Plan Assessment/Plan 1. Congestive heart failure with BNP of 564. Off Lasix as getting ARF. Echocardiogram EF 40% 2. Hypertension, off Lasix and lisinopril On p.r.n. hydralazine. 3. S/P Medtronic pacer 2013. Will interrogated after Covid is negative 4. COVID pneumonia, on dexamethasone. 5. Diabetes, on insulin. 6. Hyperlipidemia, on Lipitor. 7. Acute renal failure with BUN/CR 87/2.6>>> 74/1.6 Off Lasix and lisinopril. Has Radha RAMIREZ RN Subjective Subjective In Covid isolation off tele. In SR. EF 40-45%. Objective Last 24 Hour Vital Signs Date Time Temp Pulse Resp B/P (MAP) Pulse Ox O2 Delivery O2 Flow Rate FiO2 04/03/20 16:00 98.2 99 20 118/64 (82) 93 04/03/20 12:00 98.0 102 20 127/74 (91) 93 04/03/20 09:00 Room Air 04/03/20 08:00 96.4 96 20 159/63 (95) 93 04/03/20 04:00 98.2 80 18 108/58 (75) 92 04/03/20 00:00 98.1 85 18 108/55 (72) 92 04/02/20 21:00 Room Air Intake and Output 04/02/20 04/03/20 19:00 07:00 Intake Total 480 ml 360 ml Output Total 200 ml 375 ml Balance 280 ml -15 ml Intake Oral 480 ml 360 ml Output Urine Total 200 ml 375 ml # Voids 1 # Bowel Movements 1 Laboratory Tests Test 04/02/20 21:18 04/03/20 04:00 04/03/20 06:05 04/03/20 10:43 POC Whole Blood Glucose 136 MG/DL (74-106) H 125 MG/DL (74-106) H Pending Sodium Level 137 MMOL/L (136-145) Potassium Level 3.6 MMOL/L (3.5-5.1) Chloride Level 102 MMOL/L (98-107) Carbon Dioxide Level 22 MMOL/L (21-32) Anion Gap 13 mmol/L (5-15) Blood Urea Nitrogen 74 mg/dL (7-18) H Creatinine 1.6 MG/DL (0.55-1.30) H Estimat Glomerular Filtration Rate 30.9 mL/min (>60) Glucose Level 132 MG/DL (74-106) H Calcium Level 9.1 MG/DL (8.5-10.1) Magnesium Level 2.2 MG/DL (1.8-2.4) Pro-B-Type Natriuretic Peptide 729 pg/mL (0-125) H Test 04/03/20 17:02 POC Whole Blood Glucose 174 MG/DL (74-106) H Objective HEAD AND NECK: Some mild JVD. LUNGS: Coarse rhonchi. CARDIOVASCULAR: Regular S1 and S2 with no gallop or murmur.Pacer in Left subclavian. ABDOMEN: Soft. EXTREMITIES: Mild to moderate edema. Rafiq Cote MD Apr 03, 2020 20:36
--- NOTE | 2020-04-03 21:01 | Infectious Diseases Prog Note ---
Assessment/Plan Assessment/Plan ASSESSMENT AND PLAN: 1. e.coli uti, covid-19 infection, chf > pna - ceftriaxone - day # 5 antibiotics, diuresis - monitor clinically, hypoxia, labs, and chest x-ray - clinically stable, saturations good on RA 2. covid-19 isolation - proper PPE's worn 3. Diabetes. Blood sugar treatment per primary care team. 4. Hyponatremia. 5. Hypertension. Blood pressure treatment per primary care team. 6. Dyslipidemia. 7. Diastolic CHF. 8. Edema. 9. Obesity. 10. Allergies to morphine and tape. 11. Social history negative. 12. Family history is noncontributory. 13. MAR is noted. 14. Case discussed with RN. 15. COVID isolation. 16. Case discussed with Dr. Peña. 17. Notes and records reviewed. Orders were reviewed. Subjective Constitutional: Reports: fatigue; Denies: fever HEENT: Denies: congestion Respiratory: Denies: shortness of breath Cardiovascular: Denies: chest pain Gastrointestinal/Abdominal: Denies: nausea, vomiting, diarrhea Genitourinary: Reports: other - + cruz Neurologic: Denies: headache Psychiatric: Denies: depression Skin: Denies: rash Hematologic: Denies: bleeding Musculoskeletal: Denies: pain Allergies: Coded Allergies: MORPHINE (Verified Allergy, Unknown, 10/27/19) Uncoded Allergies: TAPE (Allergy, Unknown, 10/27/19) Objective Last 24 Hour Vital Signs Date Time Temp Pulse Resp B/P (MAP) Pulse Ox O2 Delivery O2 Flow Rate FiO2 04/03/20 16:00 98.2 99 20 118/64 (82) 93 04/03/20 12:00 98.0 102 20 127/74 (91) 93 04/03/20 09:00 Room Air 04/03/20 08:00 96.4 96 20 159/63 (95) 93 04/03/20 04:00 98.2 80 18 108/58 (75) 92 04/03/20 00:00 98.1 85 18 108/55 (72) 92 04/02/20 21:00 Room Air Height (Feet): 5 Height (Inches): 3.00 Weight (Pounds): 235 General Appearance: no acute distress HEENT: normocephalic, atraumatic, anicteric, mucous membranes moist Respiratory/Chest: crackles/rales, rhonchi - bilaterally Cardiovascular: normal rate, regular rhythm, no gallop/murmur, no JVD Abdomen: normal bowel sounds, soft, non tender, no organomegaly, non distended Genitourinary: other - + cruz - urine clearer Extremities: no cyanosis Skin: no rash 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 Ossifications in the right perihilar region, left chest pacemaker are again demonstrated. Impression: Interim partial improvement of previously demonstrated bilateral infiltrates versus edema Microbiology Date/Time Source Procedure Growth Status 03/31/20 04:45 Stool Clostridium difficile Toxin Assay - Final Complete 03/30/20 07:30 Nasopharynx SARS-CoV-2 RdRp Gene Assay - Final Complete 03/30/20 00:15 Blood Blood Culture - Preliminary NO GROWTH AFTER 72 HOURS Resulted 03/30/20 00:10 Urine,Clean Catch Urine Culture - Final Escherichia Coli Complete 03/30/20 00:00 Rectum - Final NO CARBAPENEM-RESISTANT ENTEROBACTERI... Complete Labs Test 03/31/20 21:17 04/01/20 05:00 04/01/20 06:00 04/01/20 11:40 POC Whole Blood Glucose 147 MG/DL (74-106) 185 MG/DL (74-106) White Blood Count 9.4 K/UL (4.8-10.8) Red Blood Count 5.22 M/UL (4.20-5.40) Hemoglobin 14.3 G/DL (12.0-16.0) Hematocrit 44.1 % (37.0-47.0) Mean Corpuscular Volume 84 FL (80-99) Mean Corpuscular Hemoglobin 27.4 PG (27.0-31.0) Mean Corpuscular Hemoglobin Concent 32.5 G/DL (32.0-36.0) Red Cell Distribution Width 14.1 % (11.6-14.8) Platelet Count 225 K/UL (150-450) Mean Platelet Volume 7.0 FL (6.5-10.1) Neutrophils (%) (Auto) 80.6 % (45.0-75.0) Lymphocytes (%) (Auto) 8.9 % (20.0-45.0) Monocytes (%) (Auto) 9.8 % (1.0-10.0) Eosinophils (%) (Auto) 0.5 % (0.0-3.0) Basophils (%) (Auto) 0.4 % (0.0-2.0) Sodium Level 135 MMOL/L (136-145) Potassium Level 4.0 MMOL/L (3.5-5.1) Chloride Level 100 MMOL/L (98-107) Carbon Dioxide Level 21 MMOL/L (21-32) Anion Gap 14 mmol/L (5-15) Blood Urea Nitrogen 76 mg/dL (7-18) Creatinine 2.2 MG/DL (0.55-1.30) Estimat Glomerular Filtration Rate 21.4 mL/min (>60) Glucose Level 203 MG/DL (74-106) Calcium Level 9.1 MG/DL (8.5-10.1) Pro-B-Type Natriuretic Peptide 853 pg/mL (0-125) Test 04/01/20 16:20 04/01/20 20:26 04/02/20 04:00 04/02/20 04:56 POC Whole Blood Glucose 203 MG/DL (74-106) 110 MG/DL (74-106) 120 MG/DL (74-106) White Blood Count 7.5 K/UL (4.8-10.8) Red Blood Count 4.93 M/UL (4.20-5.40) Hemoglobin 13.5 G/DL (12.0-16.0) Hematocrit 39.7 % (37.0-47.0) Mean Corpuscular Volume 80 FL (80-99) Mean Corpuscular Hemoglobin 27.5 PG (27.0-31.0) Mean Corpuscular Hemoglobin Concent 34.1 G/DL (32.0-36.0) Red Cell Distribution Width 14.7 % (11.6-14.8) Platelet Count 197 K/UL (150-450) Mean Platelet Volume 7.4 FL (6.5-10.1) Neutrophils (%) (Auto) 70.0 % (45.0-75.0) Lymphocytes (%) (Auto) 17.0 % (20.0-45.0) Monocytes (%) (Auto) 10.6 % (1.0-10.0) Eosinophils (%) (Auto) 1.8 % (0.0-3.0) Basophils (%) (Auto) 0.6 % (0.0-2.0) Sodium Level 137 MMOL/L (136-145) Potassium Level 3.7 MMOL/L (3.5-5.1) Chloride Level 101 MMOL/L (98-107) Carbon Dioxide Level 23 MMOL/L (21-32) Anion Gap 13 mmol/L (5-15) Blood Urea Nitrogen 87 mg/dL (7-18) Creatinine 2.6 MG/DL (0.55-1.30) Estimat Glomerular Filtration Rate 17.6 mL/min (>60) Glucose Level 116 MG/DL (74-106) Calcium Level 8.7 MG/DL (8.5-10.1) Phosphorus Level 4.2 MG/DL (2.5-4.9) Magnesium Level 2.1 MG/DL (1.8-2.4) Test 04/02/20 12:09 04/02/20 16:58 04/02/20 21:18 04/03/20 04:00 POC Whole Blood Glucose 173 MG/DL (74-106) 136 MG/DL (74-106) Sodium Level 137 MMOL/L (136-145) Potassium Level 3.6 MMOL/L (3.5-5.1) Chloride Level 102 MMOL/L (98-107) Carbon Dioxide Level 22 MMOL/L (21-32) Anion Gap 13 mmol/L (5-15) Blood Urea Nitrogen 74 mg/dL (7-18) Creatinine 1.6 MG/DL (0.55-1.30) Estimat Glomerular Filtration Rate 30.9 mL/min (>60) Glucose Level 132 MG/DL (74-106) Calcium Level 9.1 MG/DL (8.5-10.1) Magnesium Level 2.2 MG/DL (1.8-2.4) Pro-B-Type Natriuretic Peptide 729 pg/mL (0-125) Test 04/03/20 06:05 04/03/20 10:43 04/03/20 17:02 04/03/20 20:50 POC Whole Blood Glucose 125 MG/DL (74-106) 174 MG/DL (74-106) 156 MG/DL (74-106) Laboratory Tests Test 04/02/20 21:18 04/03/20 04:00 04/03/20 06:05 04/03/20 10:43 POC Whole Blood Glucose 136 MG/DL (74-106) H 125 MG/DL (74-106) H Pending Sodium Level 137 MMOL/L (136-145) Potassium Level 3.6 MMOL/L (3.5-5.1) Chloride Level 102 MMOL/L (98-107) Carbon Dioxide Level 22 MMOL/L (21-32) Anion Gap 13 mmol/L (5-15) Blood Urea Nitrogen 74 mg/dL (7-18) H Creatinine 1.6 MG/DL (0.55-1.30) H Estimat Glomerular Filtration Rate 30.9 mL/min (>60) Glucose Level 132 MG/DL (74-106) H Calcium Level 9.1 MG/DL (8.5-10.1) Magnesium Level 2.2 MG/DL (1.8-2.4) Pro-B-Type Natriuretic Peptide 729 pg/mL (0-125) H Test 04/03/20 17:02 04/03/20 20:50 POC Whole Blood Glucose 174 MG/DL (74-106) H 156 MG/DL (74-106) H Current Medications Medications (Trade) Dose Ordered Sig/Tiburcio Route PRN Reason Start Time Stop Time Status Last Admin Dose Admin Acetaminophen (Tylenol) 650 mg Q6H PRN ORAL For Pain 03/30/20 10:30 04/29/20 10:29 Albuterol/ Ipratropium (Combivent Respimat) 1 puff Q6HR INH 03/30/20 12:00 04/29/20 11:59 04/03/20 16:56 Ceftriaxone Sodium 1 gm/ Dextrose 50 ml @ 100 mls/hr Q24H IVPB 03/31/20 01:00 04/07/20 00:59 04/03/20 00:44 Dextrose (Dextrose 50%) 25 ml Q30M PRN IV Hypoglycemia 03/30/20 10:30 06/28/20 10:29 Dextrose (Dextrose 50%) 50 ml Q30M PRN IV Hypoglycemia 03/30/20 10:30 06/28/20 10:29 Escitalopram Oxalate (Lexapro) 10 mg DAILY ORAL 03/30/20 10:30 04/29/20 10:29 04/03/20 10:19 Gabapentin (Neurontin) 300 mg THREE TIMES A DAY ORAL 03/30/20 13:00 04/29/20 12:59 04/03/20 16:56 Heparin Sodium (Porcine) (Heparin 5000 units/ml) 5,000 units EVERY 12 HOURS SUBQ 03/30/20 21:00 05/14/20 20:59 04/03/20 20:54 Hydralazine HCl (Apresoline) 10 mg Q4H PRN IV For High Blood Pressure 03/30/20 10:45 06/28/20 10:44 Insulin Aspart (NovoLOG) BEFORE MEALS AND HS SUBQ 03/30/20 11:30 06/28/20 11:29 04/03/20 20:52 Insulin Detemir (Levemir) 10 units DAILY SUBQ 03/30/20 16:00 06/28/20 15:59 04/03/20 10:27 Avelino Puckett MD Apr 03, 2020 21:01
[2020-04-04] VITALS: BP 115/56
[2020-04-04] MEDS: cefTRIAXone 1 GM in D5W 50 ML IVPB SCH (00:11)
[2020-04-04 04:00] VITALS: BP 107/61
[2020-04-04] MEDS: NovoLOG Insulin Flexpen SUBQ SCH ×4 (05:26→20:43)
[2020-04-04 07:25] LABS: CALCIUM 8.9 MG/DL (8.5-10.1); CREATININE 1.2 MG/DL (0.55-1.30); POTASSIUM 3.1 MMOL/L (3.5-5.1)
[2020-04-04 07:48] LABS: BASOPHILS % (AUTO) 0.2 % (0.0-2.0); HEMATOCRIT 37.6 % (37.0-47.0); HEMOGLOBIN 13.1 G/DL (12.0-16.0); MEAN CORPUSCULAR VOLUME 80 FL (80-99); MONOCYTES % (AUTO) 7.4 % (1.0-10.0); NEUTROPHILS % (AUTO) 78.3 % (45.0-75.0); PLATELET COUNT 190 K/UL (150-450); RED BLOOD COUNT 4.69 M/UL (4.20-5.40); RED CELL DISTRIBUTION WIDTH 13.9 % (11.6-14.8); WHITE BLOOD COUNT 9.4 K/UL (4.8-10.8)
[2020-04-04 08:00] VITALS: BP 132/63
--- NOTE | 2020-04-04 08:53 | General Progress Note ---
Subjective Date patient seen: Apr 04, 2020 ROS Limited/Unobtainable: No Constitutional: Reports: malaise, weakness HEENT: Denies: no symptoms, eye pain, blurred vision, tearing, double vision, ear pain, ear discharge, nose pain, nose congestion, throat pain, throat swelling, mouth pain, mouth swelling, other Cardiovascular: Denies: no symptoms, chest pain, edema, irregular heart rate, lightheadedness, palpitations, syncope, other Respiratory: Denies: no symptoms, cough, orthopnea, shortness of breath, SOB with excertion, SOB at rest, sputum, stridor, wheezing, other Gastrointestinal/Abdominal: Denies: no symptoms, abdomen distended, abdominal pain, black stools, tarry stools, blood in stool, constipated, diarrhea, difficulty swallowing, nausea, poor appetite, poor fluid intake, rectal bleeding, vomiting, other Genitourinary: Denies: no symptoms, burning, discharge, frequency, flank pain, hematuria, incontinence, pain, urgency, other Neurologic/Psychiatric: Denies: no symptoms, anxiety, depressed, emotional problems, headache, numbness, paresthesia, pre-existing deficit, seizure, tingling, tremors, weakness, other Endocrine: Denies: no symptoms, excessive sweating, flushing, intolerance to cold, intolerance to heat, increased hunger, increased thirst, increased urine, unexplained weight gain, unexplained weight loss, other Hematologic/Lymphatic: Denies: no symptoms, anemia, easy bleeding, easy bruising, other Allergies: Coded Allergies: MORPHINE (Verified Allergy, Unknown, 10/27/19) Uncoded Allergies: TAPE (Allergy, Unknown, 10/27/19) Subjective no acute events overnight saturating 91-92% on room air urinating well, Net balance negative 200 ml Scr improving Objective Last 24 Hour Vital Signs Date Time Temp Pulse Resp B/P (MAP) Pulse Ox O2 Delivery O2 Flow Rate FiO2 04/04/20 08:00 97.7 90 20 132/63 (86) 91 04/04/20 04:00 98.0 90 18 107/61 (76) 94 04/04/20 00:00 97.6 82 19 115/56 (75) 95 04/03/20 21:00 Room Air 04/03/20 20:00 97.8 87 19 110/64 (79) 93 04/03/20 16:00 98.2 99 20 118/64 (82) 93 04/03/20 12:00 98.0 102 20 127/74 (91) 93 04/03/20 09:00 Room Air Intake and Output 04/03/20 04/04/20 18:59 06:59 Intake Total 720 ml 200 ml Output Total 700 ml 250 ml Balance 20 ml -50 ml Intake Oral 720 ml 200 ml Output Urine Total 700 ml 250 ml # Bowel Movements 1 1 Laboratory Tests 04/03/20 10:43: POC Whole Blood Glucose [Pending] 04/03/20 17:02: POC Whole Blood Glucose 174H 04/03/20 20:50: POC Whole Blood Glucose 156H 04/04/20 04:00: White Blood Count 9.4, Red Blood Count 4.69, Hemoglobin 13.1, Hematocrit 37.6, Mean Corpuscular Volume 80, Mean Corpuscular Hemoglobin 27.9, Mean Corpuscular Hemoglobin Concent 34.9, Red Cell Distribution Width 13.9, Platelet Count 190, Mean Platelet Volume 7.3, Neutrophils (%) (Auto) 78.3H, Lymphocytes (%) (Auto) 12.0L, Monocytes (%) (Auto) 7.4, Eosinophils (%) (Auto) 2.0, Basophils (%) (Auto) 0.2, Sodium Level 138, Potassium Level 3.1L, Chloride Level 104, Carbon Dioxide Level 23, Anion Gap 11, Blood Urea Nitrogen 62H, Creatinine 1.2, Estimat Glomerular Filtration Rate 43.0, Glucose Level 108H, Calcium Level 8.9 04/04/20 05:20: POC Whole Blood Glucose 136H Height (Feet): 5 Height (Inches): 3.00 Weight (Pounds): 235 Objective General Appearance: no apparent distress, alert Lines, tubes and drains: peripheral HEENT: normocephalic, atraumatic, anicteric, mucous membranes moist, PERRL, EOMI Neck: non-tender, normal alignment, supple Respiratory/Chest: chest wall non-tender, lungs clear, normal breath sounds, no respiratory distress Cardiovascular/Chest: normal peripheral pulses Abdomen: normal bowel sounds, non tender, soft Extremities: normal range of motion, non-tender, trace edema Skin Exam: normal pigmentation Neurologic: design coordinator II-XII grossly normal, no motor/sensory deficits, abnormal gait, alert, responsive +cruz Assessment/Plan Status: stable Assessment/Plan: A/ 1.Acute hypoxic respiratory failure-resolved 2.Covid 19 Pneumonia 3. Acute on chronic systolic and diastolic CHF 4.UTI- E.Coli 5.Elevated LFTs 6.Hyponatremia 7.MARIELY vs MARIELY on CKD- improving P/ - contact plus isolation -O2 via NC to keep sats >94%- now weaned off -Dexamethasone and remdisivir per ID- holding off and treating CHF -Ceftriaxone for UTI- follow up urine cultures--> E.Coli, sensitive to ceftriaxone. day #6 -Nephrology consult -Pulmonary consult -ID consult -Cardiology consult -follow up TTE --> EF 40% -continue to hold lasix -Renal US pending -Hold lipitor for elevated AST/ALT -Hold lisinopril -dvt ppx: heparin -code: full code disposition: Back to SNF 1-2 days I spent 40 minutes on this encounter. > 50% spent on counselling and care coordination. Plan of care d/w patient and consultants. I will locate patient's family to update them Mayito Peña M.D. Apr 04, 2020 08:53
--- NOTE | 2020-04-04 09:40 | Cardiac Electrophysiology PN ---
Assessment/Plan Assessment/Plan 1. Congestive heart failure with BNP of 564. Off Lasix as getting ARF. Echo EF 40% 2. Hypertension, off Lasix and lisinopril . On p.r.n. hydralazine. 3. S/P Medtronic pacer 2013. Will interrogated after Covid is negative 4. COVID pneumonia, on dexamethasone. 5. Diabetes, on insulin. 6. Hyperlipidemia, on Lipitor. 7. Acute renal failure with BUN/CR 87/2.6>>> 62/1.2 Off Lasix and lisinopril. Has Radha RAMIREZ RN Subjective Subjective In Covid isolation off tele. In SR. EF 40-45%. Renal US pending. Objective Last 24 Hour Vital Signs Date Time Temp Pulse Resp B/P (MAP) Pulse Ox O2 Delivery O2 Flow Rate FiO2 04/04/20 08:00 97.7 90 20 132/63 (86) 91 04/04/20 04:00 98.0 90 18 107/61 (76) 94 04/04/20 00:00 97.6 82 19 115/56 (75) 95 04/03/20 21:00 Room Air 04/03/20 20:00 97.8 87 19 110/64 (79) 93 04/03/20 16:00 98.2 99 20 118/64 (82) 93 04/03/20 12:00 98.0 102 20 127/74 (91) 93 Intake and Output 04/03/20 04/04/20 19:00 07:00 Intake Total 720 ml 200 ml Output Total 700 ml 250 ml Balance 20 ml -50 ml Intake Oral 720 ml 200 ml Output Urine Total 700 ml 250 ml # Bowel Movements 1 1 Laboratory Tests Test 04/03/20 10:43 04/03/20 17:02 04/03/20 20:50 04/04/20 04:00 POC Whole Blood Glucose Pending 174 MG/DL (74-106) H 156 MG/DL (74-106) H White Blood Count 9.4 K/UL (4.8-10.8) Red Blood Count 4.69 M/UL (4.20-5.40) Hemoglobin 13.1 G/DL (12.0-16.0) Hematocrit 37.6 % (37.0-47.0) Mean Corpuscular Volume 80 FL (80-99) Mean Corpuscular Hemoglobin 27.9 PG (27.0-31.0) Mean Corpuscular Hemoglobin Concent 34.9 G/DL (32.0-36.0) Red Cell Distribution Width 13.9 % (11.6-14.8) Platelet Count 190 K/UL (150-450) Mean Platelet Volume 7.3 FL (6.5-10.1) Neutrophils (%) (Auto) 78.3 % (45.0-75.0) H Lymphocytes (%) (Auto) 12.0 % (20.0-45.0) L Monocytes (%) (Auto) 7.4 % (1.0-10.0) Eosinophils (%) (Auto) 2.0 % (0.0-3.0) Basophils (%) (Auto) 0.2 % (0.0-2.0) Sodium Level 138 MMOL/L (136-145) Potassium Level 3.1 MMOL/L (3.5-5.1) L Chloride Level 104 MMOL/L (98-107) Carbon Dioxide Level 23 MMOL/L (21-32) Anion Gap 11 mmol/L (5-15) Blood Urea Nitrogen 62 mg/dL (7-18) H Creatinine 1.2 MG/DL (0.55-1.30) Estimat Glomerular Filtration Rate 43.0 mL/min (>60) Glucose Level 108 MG/DL (74-106) H Calcium Level 8.9 MG/DL (8.5-10.1) Test 04/04/20 05:20 POC Whole Blood Glucose 136 MG/DL (74-106) H Objective HEAD AND NECK: Some mild JVD. LUNGS: Coarse rhonchi. CARDIOVASCULAR: Regular S1 and S2 with no gallop or murmur.Pacer in Left subclavian. ABDOMEN: Soft. EXTREMITIES: Mild to moderate edema. Rafiq Cote MD Apr 04, 2020 09:40
--- NOTE | 2020-04-04 10:04 | Pulmonology Progress Note ---
Subjective ROS Limited/Unobtainable: No Interval Events: None new Constitutional: Reports: fatigue; Denies: fever HEENT: Repors: no symptoms Respiratory: Reports: no symptoms Cardiovascular: Reports: no symptoms Gastrointestinal/Abdominal: Denies: nausea, vomiting, diarrhea Genitourinary: Reports: no symptoms Neurologic: Reports: no symptoms Psychiatric: Denies: depression Skin: Denies: rash Musculoskeletal: Denies: pain Allergies: Coded Allergies: MORPHINE (Verified Allergy, Unknown, 10/27/19) Uncoded Allergies: TAPE (Allergy, Unknown, 10/27/19) Objective Last 24 Hour Vital Signs Date Time Temp Pulse Resp B/P (MAP) Pulse Ox O2 Delivery O2 Flow Rate FiO2 04/04/20 08:00 97.7 90 20 132/63 (86) 91 04/04/20 04:00 98.0 90 18 107/61 (76) 94 04/04/20 00:00 97.6 82 19 115/56 (75) 95 04/03/20 21:00 Room Air 04/03/20 20:00 97.8 87 19 110/64 (79) 93 04/03/20 16:00 98.2 99 20 118/64 (82) 93 04/03/20 12:00 98.0 102 20 127/74 (91) 93 Intake and Output 04/03/20 04/04/20 19:00 07:00 Intake Total 720 ml 200 ml Output Total 700 ml 250 ml Balance 20 ml -50 ml Intake Oral 720 ml 200 ml Output Urine Total 700 ml 250 ml # Bowel Movements 1 1 Objective 04/04/2020 saturating 94% on RA; x1 loose BM overnight per PM RN, now resolved; C diff neg; renal US pending 04/03/2020 saturating 92% on RA pt alert; saturating 96% on RA General Appearance: no acute distress HEENT: normocephalic Respiratory: chest wall non-tender, lungs clear Cardiovascular: normal peripheral pulses, JVD - mild Abdomen: normal bowel sounds Extremities: no cyanosis, other - trace edema Laboratory Tests 04/03/20 10:43: POC Whole Blood Glucose [Pending] 04/03/20 17:02: POC Whole Blood Glucose 174H 04/03/20 20:50: POC Whole Blood Glucose 156H 04/04/20 04:00: White Blood Count 9.4, Red Blood Count 4.69, Hemoglobin 13.1, Hematocrit 37.6, Mean Corpuscular Volume 80, Mean Corpuscular Hemoglobin 27.9, Mean Corpuscular Hemoglobin Concent 34.9, Red Cell Distribution Width 13.9, Platelet Count 190, Mean Platelet Volume 7.3, Neutrophils (%) (Auto) 78.3H, Lymphocytes (%) (Auto) 12.0L, Monocytes (%) (Auto) 7.4, Eosinophils (%) (Auto) 2.0, Basophils (%) (Auto) 0.2, Sodium Level 138, Potassium Level 3.1L, Chloride Level 104, Carbon Dioxide Level 23, Anion Gap 11, Blood Urea Nitrogen 62H, Creatinine 1.2, Estimat Glomerular Filtration Rate 43.0, Glucose Level 108H, Calcium Level 8.9 04/04/20 05:20: POC Whole Blood Glucose 136H Current Medications Medications (Trade) Dose Ordered Sig/Tiburcio Route PRN Reason Start Time Stop Time Status Last Admin Dose Admin Acetaminophen (Tylenol) 650 mg Q6H PRN ORAL For Pain 03/30/20 10:30 04/29/20 10:29 Albuterol/ Ipratropium (Combivent Respimat) 1 puff Q6HR INH 03/30/20 12:00 04/29/20 11:59 04/04/20 05:26 Ceftriaxone Sodium 1 gm/ Dextrose 50 ml @ 100 mls/hr Q24H IVPB 03/31/20 01:00 04/07/20 00:59 04/04/20 00:11 Dextrose (Dextrose 50%) 25 ml Q30M PRN IV Hypoglycemia 03/30/20 10:30 06/28/20 10:29 Dextrose (Dextrose 50%) 50 ml Q30M PRN IV Hypoglycemia 03/30/20 10:30 06/28/20 10:29 Escitalopram Oxalate (Lexapro) 10 mg DAILY ORAL 03/30/20 10:30 04/29/20 10:29 04/03/20 10:19 Gabapentin (Neurontin) 300 mg THREE TIMES A DAY ORAL 03/30/20 13:00 04/29/20 12:59 04/03/20 16:56 Heparin Sodium (Porcine) (Heparin 5000 units/ml) 5,000 units EVERY 12 HOURS SUBQ 03/30/20 21:00 05/14/20 20:59 04/03/20 20:54 Hydralazine HCl (Apresoline) 10 mg Q4H PRN IV For High Blood Pressure 03/30/20 10:45 06/28/20 10:44 Insulin Aspart (NovoLOG) BEFORE MEALS AND HS SUBQ 03/30/20 11:30 06/28/20 11:29 04/03/20 20:52 Insulin Detemir (Levemir) 10 units DAILY SUBQ 03/30/20 16:00 06/28/20 15:59 04/03/20 10:27 Assessment/Plan Assessment/Plan 1. COVID-19 pneumonia. - defer the use of remdesivir to ID specialist. - 03/31/2020 CXR demonstrates partial improvement of infiltrates vs edema 2. History of hypoxemia. - Currently normoxemic on room air - saturating 92% on RA 3. Diabetes mellitus. - Hold off on steroids given her diabetes 4. Hx of Hypertension. 5. Hyperlipidemia. 6. Asthma. - On combivent 7. DVT prophylaxis with heparin subcu. 8. Acute renal failure; improving - BUN 76 -> 87 -> 74 -> 62 - Cr 2.2 -> 2.6 -> 1.6 -> 1.2 - K 3.1 - Bolus of 250 ml NS given 04/01/2020 am by renal - hold off nephrotoxins per renal - Garcia cath per Dr. Peña Cont arin davidson We will follow closely The care for this patient was discussed with my supervising physician The history of Milagro Cabrales has been reviewed and management options for her have been examined and discussed by Lorne Hightower. I have personally examined and interviewed the patient. Time spent for this case was approximately 31 minutes Edwin Quinn Apr 04, 2020 10:04 Lorne Hightower MD Apr 04, 2020 17:32
--- NOTE | 2020-04-04 10:27 | Diagnostic Imaging Report ---
EXAM: ULTRASOUND US Renal Comp CLINICAL HISTORY: Impaired renal function. Abdominal discomfort. COMPARISON: None TECHNIQUE: Ultrasound examination of the kidneys includes grayscale images, and color and spectral doppler analysis. FINDINGS: The right kidney measures 10.5 x 5 x 4.1 cm and the left kidney measures 8.4 x 4.6 x 4 cm. Cortical thickness and echogenicity are within normal limits. There is no hydronephrosis or stone seen bilaterally. Urinary bladder appears unremarkable. IMPRESSION: NO OBSTRUCTIVE UROPATHY.
[2020-04-04] MEDS: Heparin 5000 units/ml inj SUBQ SCH ×2 (10:59→20:43)
[2020-04-04] MEDS: Levemir Flexpen SUBQ SCH (11:00)
[2020-04-04 12:00] VITALS: BP 124/76
--- NOTE | 2020-04-04 13:31 | Nephrology Progress Note ---
Assessment/Plan Plan #Hyponatremia- hypervolumic vs SIADH in the setting of covid #acute on chronic diastolic CHF #COVID infection #HTN #DM #HLD #Obesity - ID eval - pul eval - card eval - HOLD lasix 20 IV BID - continue IV antibiotics per ID - HOLD lisinopril 10mg daily - Bg control - monitor electrolytes - avoid nephrotoxins time spent 65 mins Subjective ROS Limited/Unobtainable: No HEENT: Denies: no symptoms, eye pain, blurred vision, tearing, double vision, ear pain, ear discharge, nose pain, nose congestion, throat pain, throat swe lling, mouth pain, mouth swelling, other Genitourinary: Denies: no symptoms, burning, discharge, frequency, flank pain, hematuria, incontinence, pain, urgency, other Subjective BP stable Cr down to 1.2 Breathing stable on RA Objective Objective Last 24 Hour Vital Signs Date Time Temp Pulse Resp B/P (MAP) Pulse Ox O2 Delivery O2 Flow Rate FiO2 04/04/20 12:00 97.0 96 19 124/76 (92) 91 04/04/20 09:00 Room Air 04/04/20 08:00 97.7 90 20 132/63 (86) 91 04/04/20 04:00 98.0 90 18 107/61 (76) 94 04/04/20 00:00 97.6 82 19 115/56 (75) 95 04/03/20 21:00 Room Air 04/03/20 20:00 97.8 87 19 110/64 (79) 93 04/03/20 16:00 98.2 99 20 118/64 (82) 93 Intake and Output 04/03/20 04/04/20 19:00 07:00 Intake Total 720 ml 200 ml Output Total 700 ml 250 ml Balance 20 ml -50 ml Intake Oral 720 ml 200 ml Output Urine Total 700 ml 250 ml # Bowel Movements 1 1 Laboratory Tests 04/03/20 17:02: POC Whole Blood Glucose 174H 04/03/20 20:50: POC Whole Blood Glucose 156H 04/04/20 04:00: White Blood Count 9.4, Red Blood Count 4.69, Hemoglobin 13.1, Hematocrit 37.6, Mean Corpuscular Volume 80, Mean Corpuscular Hemoglobin 27.9, Mean Corpuscular Hemoglobin Concent 34.9, Red Cell Distribution Width 13.9, Platelet Count 190, Mean Platelet Volume 7.3, Neutrophils (%) (Auto) 78.3H, Lymphocytes (%) (Auto) 12.0L, Monocytes (%) (Auto) 7.4, Eosinophils (%) (Auto) 2.0, Basophils (%) (Auto) 0.2, Sodium Level 138, Potassium Level 3.1L, Chloride Level 104, Carbon Dioxide Level 23, Anion Gap 11, Blood Urea Nitrogen 62H, Creatinine 1.2, Estimat Glomerular Filtration Rate 43.0, Glucose Level 108H, Calcium Level 8.9 04/04/20 05:20: POC Whole Blood Glucose 136H 04/04/20 11:39: POC Whole Blood Glucose [Pending] Height (Feet): 5 Height (Inches): 3.00 Weight (Pounds): 235 Kell Adorno M.D. Apr 04, 2020 13:31
[2020-04-04 16:00] VITALS: BP 126/66
--- NOTE | 2020-04-04 17:01 | Surgery Progress Note ---
Surgery Progress Note Subjective Additional Comments labs okay renal us noted no n/v Objective Last 24 Hour Vital Signs Date Time Temp Pulse Resp B/P (MAP) Pulse Ox O2 Delivery O2 Flow Rate FiO2 04/04/20 16:00 97.9 94 20 126/66 (86) 96 04/04/20 12:00 97.0 96 19 124/76 (92) 91 04/04/20 09:00 Room Air 04/04/20 08:00 97.7 90 20 132/63 (86) 91 04/04/20 04:00 98.0 90 18 107/61 (76) 94 04/04/20 00:00 97.6 82 19 115/56 (75) 95 04/03/20 21:00 Room Air 04/03/20 20:00 97.8 87 19 110/64 (79) 93 I&O Intake and Output 04/03/20 04/04/20 19:00 07:00 Intake Total 720 ml 200 ml Output Total 700 ml 250 ml Balance 20 ml -50 ml Intake Oral 720 ml 200 ml Output Urine Total 700 ml 250 ml # Bowel Movements 1 1 Cardiovascular: RSR Respiratory: decreased breath sounds Abdomen: non-tender, present bowel sounds Extremities: no edema Laboratory Tests Test 04/03/20 17:02 04/03/20 20:50 04/04/20 04:00 04/04/20 05:20 POC Whole Blood Glucose 174 MG/DL (74-106) H 156 MG/DL (74-106) H 136 MG/DL (74-106) H White Blood Count 9.4 K/UL (4.8-10.8) Red Blood Count 4.69 M/UL (4.20-5.40) Hemoglobin 13.1 G/DL (12.0-16.0) Hematocrit 37.6 % (37.0-47.0) Mean Corpuscular Volume 80 FL (80-99) Mean Corpuscular Hemoglobin 27.9 PG (27.0-31.0) Mean Corpuscular Hemoglobin Concent 34.9 G/DL (32.0-36.0) Red Cell Distribution Width 13.9 % (11.6-14.8) Platelet Count 190 K/UL (150-450) Mean Platelet Volume 7.3 FL (6.5-10.1) Neutrophils (%) (Auto) 78.3 % (45.0-75.0) H Lymphocytes (%) (Auto) 12.0 % (20.0-45.0) L Monocytes (%) (Auto) 7.4 % (1.0-10.0) Eosinophils (%) (Auto) 2.0 % (0.0-3.0) Basophils (%) (Auto) 0.2 % (0.0-2.0) Sodium Level 138 MMOL/L (136-145) Potassium Level 3.1 MMOL/L (3.5-5.1) L Chloride Level 104 MMOL/L (98-107) Carbon Dioxide Level 23 MMOL/L (21-32) Anion Gap 11 mmol/L (5-15) Blood Urea Nitrogen 62 mg/dL (7-18) H Creatinine 1.2 MG/DL (0.55-1.30) Estimat Glomerular Filtration Rate 43.0 mL/min (>60) Glucose Level 108 MG/DL (74-106) H Calcium Level 8.9 MG/DL (8.5-10.1) Test 04/04/20 11:39 POC Whole Blood Glucose Pending Plan Problems: (1) Pneumonia (2) Coronavirus infection (3) COVID-19 Assessment & Plan: as per ID (4) Abnormal LFTs Assessment & Plan: US abd ordered pending results trend lft's exam with grimace upon abd exam general no worse with RUQ lip / rochelle okay for diet will follow with recs thank you Gallbladder has been removed Common bile duct measures 12 mm in diameter. No intrahepatic biliary ductal dilatation. Liver demonstrates somewhat increased echogenicity, no focal abnormality. Portal vein and hepatic veins are patent. Pancreas is unremarkable. Spleen is unremarkable. Left kidney measures 10.3 cm in length. Right kidney measures 8.7 cm length. Both kidneys demonstrate normal echogenicity, mild cortical thinning. There is no hydronephrosis. No focal abnormality . The aorta is partially obscured. Impression: Absent gallbladder. Dilated extra hepatic ducts are likely related to age and postcholecystectomy state, but downstream obstruction also possible. Consider MRCP if clinically indicated Liver demonstrates diffusely increased echogenicity, consistent with diffuse hepatocellular disease, most likely fatty change.. Mild thinning of the renal cortices. Note incomplete visualization of the abdominal aorta DAILY ESTIMATED NEEDS: Needs based on Obese, cardiac, DM 66kg abw 20-25 kcals/kg 6344-0223 total kcals 1-1.5 g protein/kg 66-99 g total protein 20-25 mL/kg 3903-1268 total fluid mLs NUTRITION DIAGNOSIS: Altered nutrition related lab values r/t clinical status, DM as evidenced by elev BGs (203, 173, 192), pt on long and short acting insulin. CURRENT DIET:CCHO LOW, mech soft chopped PO DIET RECOMMENDATIONS: Maintain CCHO LOW diet (Texture as tolerated or per [employer]) ADDITIONAL RECOMMENDATIONS: 1) Daily calibrated bedscale wt 2) Monitor PO intake and tolerance closely- variable, COVID-19 positive 3) F/up w/ WC eval add MVI x1 4) Monitor BGs w/ long acting and short acting insulin, need for adjustment Jake Rodríguez Apr 04, 2020 17:01
[2020-04-04 20:00] VITALS: BP 130/60
[2020-04-05] VITALS: BP 117/59
[2020-04-05] MEDS: cefTRIAXone 1 GM in D5W 50 ML IVPB SCH (00:34)
[2020-04-05 04:00] VITALS: BP 111/55
[2020-04-05] MEDS: NovoLOG Insulin Flexpen SUBQ SCH ×4 (05:38→20:19)
[2020-04-05 06:49] LABS: CALCIUM 8.7 MG/DL (8.5-10.1); CREATININE 1.1 MG/DL (0.55-1.30); POTASSIUM 3.5 MMOL/L (3.5-5.1)
[2020-04-05 08:00] VITALS: BP 115/67
[2020-04-05] MEDS: dexAMETHasone 10mg/ml Inj IV SCH (08:29)
[2020-04-05] MEDS: Levemir Flexpen SUBQ SCH (08:30)
[2020-04-05] MEDS: Heparin 5000 units/ml inj SUBQ SCH ×2 (08:30→20:17)
--- NOTE | 2020-04-05 08:50 | Nephrology Progress Note ---
Assessment/Plan Plan #Hyponatremia- hypervolumic vs SIADH in the setting of covid #acute on chronic diastolic CHF #COVID infection #HTN #DM #HLD #Obesity - ID eval - pul eval - card eval - HOLD lasix 20 IV BID - continue IV antibiotics per ID - HOLD lisinopril 10mg daily - Bg control - monitor electrolytes - avoid nephrotoxins time spent 65 mins Subjective ROS Limited/Unobtainable: No Constitutional: Reports: weakness HEENT: Denies: no symptoms, eye pain, blurred vision, tearing, double vision, ear pain, ear discharge, nose pain, nose congestion, throat pain, throat swelling, mouth pain, mouth swelling, other Genitourinary: Denies: no symptoms, burning, discharge, frequency, flank pain, hematuria, incontinence, pain, urgency, other Neurologic/Psychiatric: Denies: no symptoms, anxiety, depressed, emotional problems, headache, numbness, paresthesia, pre-existing deficit, seizure, tingling, tremors, weakness, other Subjective BP stable Cr down to 1.2 Breathing stable on RA Objective Objective Last 24 Hour Vital Signs Date Time Temp Pulse Resp B/P (MAP) Pulse Ox O2 Delivery O2 Flow Rate FiO2 04/05/20 04:00 97.3 77 20 111/55 (73) 97 04/05/20 00:00 97.0 93 18 117/59 (78) 96 04/04/20 21:00 Room Air 04/04/20 20:00 97.5 89 18 130/60 (83) 97 04/04/20 16:00 97.9 94 20 126/66 (86) 96 04/04/20 12:00 97.0 96 19 124/76 (92) 91 04/04/20 09:00 Room Air Intake and Output 04/04/20 04/05/20 19:00 07:00 Intake Total 620 ml 150 ml Output Total 400 ml 300 ml Balance 220 ml -150 ml Intake Oral 620 ml 150 ml Output Urine Total 400 ml 300 ml # Bowel Movements 4 2 Laboratory Tests 04/04/20 11:39: POC Whole Blood Glucose [Pending] 04/04/20 17:19: POC Whole Blood Glucose [Pending] 04/04/20 20:36: POC Whole Blood Glucose [Pending] 04/05/20 05:36: POC Whole Blood Glucose [Pending] 04/05/20 05:40: Sodium Level 136, Potassium Level 3.5, Chloride Level 105, Carbon Dioxide Level 20L, Anion Gap 11, Blood Urea Nitrogen 51H, Creatinine 1.1, Estimat Glomerular Filtration Rate 47.6, Glucose Level 165H, Calcium Level 8.7 04/05/20 08:27: POC Whole Blood Glucose 146H Height (Feet): 5 Height (Inches): 3.00 Weight (Pounds): 235 Kell Adorno M.D. Apr 05, 2020 08:50
--- NOTE | 2020-04-05 09:03 | Pulmonology Progress Note ---
Subjective ROS Limited/Unobtainable: No Interval Events: None new Constitutional: Reports: fatigue; Denies: fever HEENT: Repors: no symptoms Respiratory: Reports: no symptoms Cardiovascular: Reports: no symptoms Gastrointestinal/Abdominal: Denies: nausea, vomiting, diarrhea Genitourinary: Reports: no symptoms Neurologic: Reports: no symptoms Psychiatric: Denies: depression Skin: Denies: rash Musculoskeletal: Denies: pain Allergies: Coded Allergies: MORPHINE (Verified Allergy, Unknown, 10/27/19) Uncoded Allergies: TAPE (Allergy, Unknown, 10/27/19) Objective Last 24 Hour Vital Signs Date Time Temp Pulse Resp B/P (MAP) Pulse Ox O2 Delivery O2 Flow Rate FiO2 04/05/20 04:00 97.3 77 20 111/55 (73) 97 04/05/20 00:00 97.0 93 18 117/59 (78) 96 04/04/20 21:00 Room Air 04/04/20 20:00 97.5 89 18 130/60 (83) 97 04/04/20 16:00 97.9 94 20 126/66 (86) 96 04/04/20 12:00 97.0 96 19 124/76 (92) 91 Intake and Output 04/04/20 04/05/20 19:00 07:00 Intake Total 620 ml 150 ml Output Total 400 ml 300 ml Balance 220 ml -150 ml Intake Oral 620 ml 150 ml Output Urine Total 400 ml 300 ml # Bowel Movements 4 2 Objective 04/05/2020 Saturating 97% on RA; renal US reveals no obstructive uropathy 04/04/2020 saturating 94% on RA; x1 loose BM overnight per PM RN, now resolved; C diff neg; renal US pending 04/03/2020 saturating 92% on RA pt alert; saturating 96% on RA General Appearance: no acute distress HEENT: normocephalic Respiratory: chest wall non-tender, lungs clear Cardiovascular: normal peripheral pulses, JVD - mild Abdomen: normal bowel sounds Extremities: no cyanosis, other - trace edema Laboratory Tests 04/04/20 11:39: POC Whole Blood Glucose [Pending] 04/04/20 17:19: POC Whole Blood Glucose [Pending] 04/04/20 20:36: POC Whole Blood Glucose [Pending] 04/05/20 05:36: POC Whole Blood Glucose [Pending] 04/05/20 05:40: Sodium Level 136, Potassium Level 3.5, Chloride Level 105, Carbon Dioxide Level 20L, Anion Gap 11, Blood Urea Nitrogen 51H, Creatinine 1.1, Estimat Glomerular Filtration Rate 47.6, Glucose Level 165H, Calcium Level 8.7 04/05/20 08:27: POC Whole Blood Glucose 146H Current Medications Medications (Trade) Dose Ordered Sig/Tiburcio Route PRN Reason Start Time Stop Time Status Last Admin Dose Admin Acetaminophen (Tylenol) 650 mg Q6H PRN ORAL For Pain 03/30/20 10:30 04/29/20 10:29 Albuterol/ Ipratropium (Combivent Respimat) 1 puff Q6HR INH 03/30/20 12:00 04/29/20 11:59 04/05/20 05:15 Ceftriaxone Sodium 1 gm/ Dextrose 50 ml @ 100 mls/hr Q24H IVPB 03/31/20 01:00 04/07/20 00:59 04/05/20 00:34 Dexamethasone Sodium Phosphate (Decadron 10mg/ ml Inj) 6 mg DAILY IV 04/05/20 09:00 04/14/20 08:59 04/05/20 08:29 Dextrose (Dextrose 50%) 25 ml Q30M PRN IV Hypoglycemia 03/30/20 10:30 06/28/20 10:29 Dextrose (Dextrose 50%) 50 ml Q30M PRN IV Hypoglycemia 03/30/20 10:30 06/28/20 10:29 Escitalopram Oxalate (Lexapro) 10 mg DAILY ORAL 03/30/20 10:30 04/29/20 10:29 04/05/20 08:29 Gabapentin (Neurontin) 300 mg THREE TIMES A DAY ORAL 03/30/20 13:00 04/29/20 12:59 04/05/20 08:29 Heparin Sodium (Porcine) (Heparin 5000 units/ml) 5,000 units EVERY 12 HOURS SUBQ 03/30/20 21:00 05/14/20 20:59 04/05/20 08:30 Insulin Aspart (NovoLOG) BEFORE MEALS AND HS SUBQ 03/30/20 11:30 06/28/20 11:29 04/05/20 05:38 Insulin Detemir (Levemir) 10 units DAILY SUBQ 12/2/20 16:00 06/28/20 15:59 04/05/20 08:30 Assessment/Plan Assessment/Plan 1. COVID-19 pneumonia. - defer the use of remdesivir to ID specialist. - 03/31/2020 CXR demonstrates partial improvement of infiltrates vs edema 2. History of hypoxemia. - Currently normoxemic on room air - saturating 97% on RA 3. Diabetes mellitus. - Hold off on steroids given her diabetes - on glucose-lowering agents 4. Hx of Hypertension. 5. Hyperlipidemia. 6. Asthma. - On combivent 7. DVT prophylaxis with heparin subcu. 8. Acute renal failure; improving - BUN 76 -> 87 -> 74 -> 62 -> 51 - Cr 2.2 -> 2.6 -> 1.6 -> 1.2 -> 1.1 - K 3.1 -> 3.5 - Bolus of 250 ml NS given 04/01/2020 am by renal - hold off nephrotoxins per renal - Garcia cath per Dr. Peña Cont monitor lytes We will follow closely The care for this patient was discussed with my supervising physician Time spent for this case was approximately 31 minutes The patient was seen and examined at bedside and all new and available data was reviewed in the patients chart. I agree with the above findings, impression, and plan. (Patient was seen earlier today. Signature timestamp does not reflect patient encounter time) Edwin Tavera MD Apr 05, 2020 09:03 Lorne Hightower MD Apr 05, 2020 16:25
[2020-04-05 12:00] VITALS: BP 125/69
--- NOTE | 2020-04-05 12:15 | Cardiac Electrophysiology PN ---
Assessment/Plan Assessment/Plan 1. Congestive heart failure with BNP of 564. Off Lasix as getting ARF. Echo EF 40% 2. Hypertension, off Lasix and lisinopril . On p.r.n. hydralazine. 3. S/P Medtronic pacer 2013. Will interrogated after Covid is negative 4. COVID pneumonia, on dexamethasone. 5. Diabetes, on insulin. 6. Hyperlipidemia, on Lipitor. 7. Acute renal failure with BUN/CR 87/2.6>>> 51/1.1 Off Lasix and lisinopril improved to 51/1.1 DW RN Subjective Subjective In Covid isolation off tele. In SR. EF 40-45%. Objective Last 24 Hour Vital Signs Date Time Temp Pulse Resp B/P (MAP) Pulse Ox O2 Delivery O2 Flow Rate FiO2 04/05/20 12:00 97.7 87 18 125/69 (87) 97 04/05/20 09:00 Room Air 04/05/20 08:00 98.3 92 18 115/67 (83) 95 04/05/20 04:00 97.3 77 20 111/55 (73) 97 04/05/20 00:00 97.0 93 18 117/59 (78) 96 04/04/20 21:00 Room Air 04/04/20 20:00 97.5 89 18 130/60 (83) 97 04/04/20 16:00 97.9 94 20 126/66 (86) 96 Intake and Output 04/04/20 04/05/20 19:00 07:00 Intake Total 620 ml 150 ml Output Total 400 ml 300 ml Balance 220 ml -150 ml Intake Oral 620 ml 150 ml Output Urine Total 400 ml 300 ml # Bowel Movements 4 2 Laboratory Tests Test 04/04/20 17:19 04/04/20 20:36 04/05/20 05:36 04/05/20 05:40 POC Whole Blood Glucose Pending Pending Pending Sodium Level 136 MMOL/L (136-145) Potassium Level 3.5 MMOL/L (3.5-5.1) Chloride Level 105 MMOL/L (98-107) Carbon Dioxide Level 20 MMOL/L (21-32) L Anion Gap 11 mmol/L (5-15) Blood Urea Nitrogen 51 mg/dL (7-18) H Creatinine 1.1 MG/DL (0.55-1.30) Estimat Glomerular Filtration Rate 47.6 mL/min (>60) Glucose Level 165 MG/DL (74-106) H Calcium Level 8.7 MG/DL (8.5-10.1) Test 04/05/20 08:27 04/05/20 11:23 POC Whole Blood Glucose 146 MG/DL (74-106) H 263 MG/DL (74-106) H Objective HEAD AND NECK: Some mild JVD. LUNGS: Coarse rhonchi. CARDIOVASCULAR: Regular S1 and S2 with no gallop or murmur.Pacer in Left subclavian. ABDOMEN: Soft. EXTREMITIES: Mild to moderate edema. Rafiq Cote MD Apr 05, 2020 12:15
--- NOTE | 2020-04-05 14:54 | Surgery Progress Note ---
Surgery Progress Note Subjective Symptoms: improved, tolerating diet, passing flatus Objective Last 24 Hour Vital Signs Date Time Temp Pulse Resp B/P (MAP) Pulse Ox O2 Delivery O2 Flow Rate FiO2 04/05/20 12:00 97.7 87 18 125/69 (87) 97 04/05/20 09:00 Room Air 04/05/20 08:00 98.3 92 18 115/67 (83) 95 04/05/20 04:00 97.3 77 20 111/55 (73) 97 04/05/20 00:00 97.0 93 18 117/59 (78) 96 04/04/20 21:00 Room Air 04/04/20 20:00 97.5 89 18 130/60 (83) 97 04/04/20 16:00 97.9 94 20 126/66 (86) 96 I&O Intake and Output 04/04/20 04/05/20 19:00 07:00 Intake Total 620 ml 150 ml Output Total 400 ml 300 ml Balance 220 ml -150 ml Intake Oral 620 ml 150 ml Output Urine Total 400 ml 300 ml # Bowel Movements 4 2 Dressing: saturated Cardiovascular: RSR Respiratory: decreased breath sounds Abdomen: non-tender, present bowel sounds Extremities: no edema, no tenderness, no cyanosis Laboratory Tests Test 04/04/20 17:19 04/04/20 20:36 04/05/20 05:36 04/05/20 05:40 POC Whole Blood Glucose Pending Pending Pending Sodium Level 136 MMOL/L (136-145) Potassium Level 3.5 MMOL/L (3.5-5.1) Chloride Level 105 MMOL/L (98-107) Carbon Dioxide Level 20 MMOL/L (21-32) L Anion Gap 11 mmol/L (5-15) Blood Urea Nitrogen 51 mg/dL (7-18) H Creatinine 1.1 MG/DL (0.55-1.30) Estimat Glomerular Filtration Rate 47.6 mL/min (>60) Glucose Level 165 MG/DL (74-106) H Calcium Level 8.7 MG/DL (8.5-10.1) Test 04/05/20 08:27 04/05/20 11:23 POC Whole Blood Glucose 146 MG/DL (74-106) H 263 MG/DL (74-106) H Plan Problems: (1) Pneumonia (2) Coronavirus infection (3) COVID-19 Assessment & Plan: as per ID (4) Abnormal LFTs Assessment & Plan: US abd ordered pending results trend lft's exam with grimace upon abd exam general no worse with RUQ lip / rochelle okay for diet will follow with recs thank you Gallbladder has been removed Common bile duct measures 12 mm in diameter. No intrahepatic biliary ductal dilatation. Liver demonstrates somewhat increased echogenicity, no focal abnormality. Portal vein and hepatic veins are patent. Pancreas is unremarkable. Spleen is unremarkable. Left kidney measures 10.3 cm in length. Right kidney measures 8.7 cm length. Both kidneys demonstrate normal echogenicity, mild cortical thinning. There is no hydronephrosis. No focal abnormality . The aorta is partially obscured. Impression: Absent gallbladder. Dilated extra hepatic ducts are likely related to age and postcholecystectomy state, but downstream obstruction also possible. Consider MRCP if clinically indicated Liver demonstrates diffusely increased echogenicity, consistent with diffuse hepatocellular disease, most likely fatty change.. Mild thinning of the renal cortices. Note incomplete visualization of the abdominal aorta DAILY ESTIMATED NEEDS: Needs based on Obese, cardiac, DM 66kg abw 20-25 kcals/kg 0201-6540 total kcals 1-1.5 g protein/kg 66-99 g total protein 20-25 mL/kg 0394-9488 total fluid mLs NUTRITION DIAGNOSIS: Altered nutrition related lab values r/t clinical status, DM as evidenced by elev BGs (203, 173, 192), pt on long and short acting insulin. CUR[facility] DIET RECOMMENDATIONS: Maintain CCHO LOW diet (Texture as tolerated or per [employer]) ADDITIONAL RECOMMENDATIONS: 1) Daily calibrated bedscale wt 2) Monitor PO intake and tolerance closely- variable, COVID-19 positive 3) F/up w/ WC eval add MVI x1 4) Monitor BGs w/ long acting and short acting insulin, need for adjustment Jake Rodríguez Apr 05, 2020 14:54
[2020-04-05 16:00] VITALS: BP 120/70
--- NOTE | 2020-04-05 16:40 | General Progress Note ---
Subjective Date patient seen: Apr 05, 2020 Time patient seen: 11:12 Constitutional: Denies: no symptoms, chills, diaphoresis, fever, malaise, weakness, other HEENT: Denies: no symptoms, eye pain, blurred vision, tearing, double vision, ear pain, ear discharge, nose pain, nose congestion, throat pain, throat swelling, mouth pain, mouth swelling, other Cardiovascular: Denies: no symptoms, chest pain, edema, irregular heart rate, lightheadedness, palpitations, syncope, other Respiratory: Denies: no symptoms, cough, orthopnea, shortness of breath, SOB with excertion, SOB at rest, sputum, stridor, wheezing, other Gastrointestinal/Abdominal: Denies: no symptoms, abdomen distended, abdominal pain, black stools, tarry stools, blood in stool, constipated, diarrhea, difficulty swallowing, nausea, poor appetite, poor fluid intake, rectal bleeding, vomiting, other Genitourinary: Denies: no symptoms, burning, discharge, frequency, flank pain, hematuria, incontinence, pain, urgency, other Neurologic/Psychiatric: Denies: no symptoms, anxiety, depressed, emotional problems, headache, numbness, paresthesia, pre-existing deficit, seizure, tingling, tremors, weakness, other Endocrine: Denies: no symptoms, excessive sweating, flushing, intolerance to cold, intolerance to heat, increased hunger, increased thirst, increased urine, unexplained weight gain, unexplained weight loss, other Hematologic/Lymphatic: Denies: no symptoms, anemia, easy bleeding, easy bruising, other Allergies: Coded Allergies: MORPHINE (Verified Allergy, Unknown, 10/27/19) Uncoded Allergies: TAPE (Allergy, Unknown, 10/27/19) Subjective No acute distress No events overnight No complaints of n/v or pain Objective Last 24 Hour Vital Signs Date Time Temp Pulse Resp B/P (MAP) Pulse Ox O2 Delivery O2 Flow Rate FiO2 04/05/20 12:00 97.7 87 18 125/69 (87) 97 04/05/20 09:00 Room Air 04/05/20 08:00 98.3 92 18 115/67 (83) 95 04/05/20 04:00 97.3 77 20 111/55 (73) 97 04/05/20 00:00 97.0 93 18 117/59 (78) 96 04/04/20 21:00 Room Air 04/04/20 20:00 97.5 89 18 130/60 (83) 97 Intake and Output 04/04/20 04/05/20 19:00 07:00 Intake Total 620 ml 150 ml Output Total 400 ml 300 ml Balance 220 ml -150 ml Intake Oral 620 ml 150 ml Output Urine Total 400 ml 300 ml # Bowel Movements 4 2 Laboratory Tests 04/04/20 17:19: POC Whole Blood Glucose [Pending] 04/04/20 20:36: POC Whole Blood Glucose [Pending] 04/05/20 05:36: POC Whole Blood Glucose [Pending] 04/05/20 05:40: Sodium Level 136, Potassium Level 3.5, Chloride Level 105, Carbon Dioxide Level 20L, Anion Gap 11, Blood Urea Nitrogen 51H, Creatinine 1.1, Estimat Glomerular Filtration Rate 47.6, Glucose Level 165H, Calcium Level 8.7 04/05/20 08:27: POC Whole Blood Glucose 146H 04/05/20 11:23: POC Whole Blood Glucose 263H Height (Feet): 5 Height (Inches): 3.00 Weight (Pounds): 235 General Appearance: no apparent distress, alert EENT: PERRL/EOMI Neck: supple Cardiovascular: normal rate, regular rhythm Respiratory/Chest: lungs clear, normal breath sounds Abdomen: non tender, soft Extremities: normal range of motion Edema: trace edema Neurologic: analysis director II-XII grossly normal Skin: warm/dry Assessment/Plan Status: stable Assessment/Plan: #Acute hypoxic respiratory failure-resolved #Covid 19 Pneumonia - contact plus isolation -O2 via NC to keep sats >94%- now weaned off -Dexamethasone and remdisivir per ID - Pulmonology consult, appreciate recs - ID consult, appreciate recs #UTI - E.coli UTI - Continue Ceftriaxone (03/31- ) #CHF -Cardiology consult -follow up TTE --> EF 40% -continue to hold lasix # Elevated LFTs - Hold lipitor for elevated ast/alt #Hyperglycemia 2' Steroid use - Detemir 10U #Depression - Lexapro # Hyponatremia # MARIELY vs MARIELY on CKD- improving -Renal US - no obstructive uropathy - Nephrology consult -dvt ppx: heparin -code: full code Time spent is 32 minutes with 18 [facility] D/w nursing staff. Time of note does not reflect time of encounter. Elise Monreal M.D. Apr 05, 2020 16:40
[2020-04-05 20:00] VITALS: BP 121/62
--- NOTE | 2020-04-05 22:49 | Infectious Diseases Prog Note ---
Assessment/Plan Assessment/Plan ASSESSMENT AND PLAN: 1. e.coli uti, covid-19 infection, chf > pna - ceftriaxone - day # 7 antibiotics- finish course, diuresis - patient with hypoxia yesterday and dexamethasone started - day # 2 now, saturations improved - monitor clinically, hypoxia, labs, and chest x-ray 2. covid-19 isolation - proper PPE's worn 3. Diabetes. Blood sugar treatment per primary care team. 4. Hyponatremia. 5. Hypertension. Blood pressure treatment per primary care team. 6. Dyslipidemia. 7. Diastolic CHF. 8. Edema. 9. Obesity. 10. Allergies to morphine and tape. 11. Social history negative. 12. Family history is noncontributory. 13. MAR is noted. 14. Case discussed with RN. 15. COVID isolation. 16. Case discussed with Dr. Peña. 17. Notes and records reviewed. Orders were reviewed. Subjective Constitutional: Reports: fatigue; Denies: fever HEENT: Reports: congestion Respiratory: Reports: shortness of breath Cardiovascular: Denies: chest pain Gastrointestinal/Abdominal: Denies: nausea, vomiting, diarrhea Genitourinary: Reports: other - no cruz ; Denies: dysuria, hematuria, frequency Neurologic: Denies: headache Psychiatric: Denies: depression Skin: Denies: rash Hematologic: Denies: bleeding Musculoskeletal: Denies: pain Allergies: Coded Allergies: MORPHINE (Verified Allergy, Unknown, 10/27/19) Uncoded Allergies: TAPE (Allergy, Unknown, 10/27/19) Objective Last 24 Hour Vital Signs Date Time Temp Pulse Resp B/P (MAP) Pulse Ox O2 Delivery O2 Flow Rate FiO2 04/05/20 20:57 Room Air 04/05/20 20:00 97.4 74 18 121/62 (81) 96 04/05/20 16:00 97.0 86 18 120/70 (87) 96 04/05/20 12:00 97.7 87 18 125/69 (87) 97 04/05/20 09:00 Room Air 04/05/20 08:00 98.3 92 18 115/67 (83) 95 04/05/20 04:00 97.3 77 20 111/55 (73) 97 04/05/20 00:00 97.0 93 18 117/59 (78) 96 Height (Feet): 5 Height (Inches): 3.00 Weight (Pounds): 235 General Appearance: no acute distress HEENT: normocephalic, atraumatic, anicteric Respiratory/Chest: no accessory muscle use, crackles/rales, rhonchi - bilaterally Cardiovascular: normal rate, regular rhythm, no gallop/murmur, no JVD Abdomen: normal bowel sounds, no organomegaly, non distended Genitourinary: other - no cruz Extremities: no cyanosis Skin: no rash 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 Ossifications in the right perihilar region, left chest pacemaker are again demonstrated. Impression: Interim partial improvement of previously demonstrated bilateral infiltrates versus edema Microbiology Date/Time Source Procedure Growth Status 03/31/20 04:45 Stool Clostridium difficile Toxin Assay - Final Complete 03/30/20 07:30 Nasopharynx SARS-CoV-2 RdRp Gene Assay - Final Complete 03/30/20 00:15 Blood Blood Culture - Final NO GROWTH AFTER 5 DAYS Complete 03/30/20 00:10 Urine,Clean Catch Urine Culture - Final Escherichia Coli Complete 03/30/20 00:00 Rectum - Final NO CARBAPENEM-RESISTANT ENTEROBACTERI... Complete Labs Test 04/03/20 04:00 04/03/20 06:05 04/03/20 10:43 04/03/20 17:02 Sodium Level 137 MMOL/L (136-145) Potassium Level 3.6 MMOL/L (3.5-5.1) Chloride Level 102 MMOL/L (98-107) Carbon Dioxide Level 22 MMOL/L (21-32) Anion Gap 13 mmol/L (5-15) Blood Urea Nitrogen 74 mg/dL (7-18) Creatinine 1.6 MG/DL (0.55-1.30) Estimat Glomerular Filtration Rate 30.9 mL/min (>60) Glucose Level 132 MG/DL (74-106) Calcium Level 9.1 MG/DL (8.5-10.1) Magnesium Level 2.2 MG/DL (1.8-2.4) Pro-B-Type Natriuretic Peptide 729 pg/mL (0-125) POC Whole Blood Glucose 125 MG/DL (74-106) 174 MG/DL (74-106) Test 04/03/20 20:50 04/04/20 04:00 04/04/20 05:20 04/04/20 11:39 POC Whole Blood Glucose 156 MG/DL (74-106) 136 MG/DL (74-106) White Blood Count 9.4 K/UL (4.8-10.8) Red Blood Count 4.69 M/UL (4.20-5.40) Hemoglobin 13.1 G/DL (12.0-16.0) Hematocrit 37.6 % (37.0-47.0) Mean Corpuscular Volume 80 FL (80-99) Mean Corpuscular Hemoglobin 27.9 PG (27.0-31.0) Mean Corpuscular Hemoglobin Concent 34.9 G/DL (32.0-36.0) Red Cell Distribution Width 13.9 % (11.6-14.8) Platelet Count 190 K/UL (150-450) Mean Platelet Volume 7.3 FL (6.5-10.1) Neutrophils (%) (Auto) 78.3 % (45.0-75.0) Lymphocytes (%) (Auto) 12.0 % (20.0-45.0) Monocytes (%) (Auto) 7.4 % (1.0-10.0) Eosinophils (%) (Auto) 2.0 % (0.0-3.0) Basophils (%) (Auto) 0.2 % (0.0-2.0) Sodium Level 138 MMOL/L (136-145) Potassium Level 3.1 MMOL/L (3.5-5.1) Chloride Level 104 MMOL/L (98-107) Carbon Dioxide Level 23 MMOL/L (21-32) Anion Gap 11 mmol/L (5-15) Blood Urea Nitrogen 62 mg/dL (7-18) Creatinine 1.2 MG/DL (0.55-1.30) Estimat Glomerular Filtration Rate 43.0 mL/min (>60) Glucose Level 108 MG/DL (74-106) Calcium Level 8.9 MG/DL (8.5-10.1) Test 04/04/20 17:19 04/04/20 20:36 04/05/20 05:36 04/05/20 05:40 Sodium Level 136 MMOL/L (136-145) Potassium Level 3.5 MMOL/L (3.5-5.1) Chloride Level 105 MMOL/L (98-107) Carbon Dioxide Level 20 MMOL/L (21-32) Anion Gap 11 mmol/L (5-15) Blood Urea Nitrogen 51 mg/dL (7-18) Creatinine 1.1 MG/DL (0.55-1.30) Estimat Glomerular Filtration Rate 47.6 mL/min (>60) Glucose Level 165 MG/DL (74-106) Calcium Level 8.7 MG/DL (8.5-10.1) Test 04/05/20 08:27 04/05/20 11:23 04/05/20 16:26 POC Whole Blood Glucose 146 MG/DL (74-106) 263 MG/DL (74-106) 294 MG/DL (74-106) Laboratory Tests Test 04/05/20 05:36 04/05/20 05:40 04/05/20 08:27 04/05/20 11:23 POC Whole Blood Glucose Pending 146 MG/DL (74-106) H 263 MG/DL (74-106) H Sodium Level 136 MMOL/L (136-145) Potassium Level 3.5 MMOL/L (3.5-5.1) Chloride Level 105 MMOL/L (98-107) Carbon Dioxide Level 20 MMOL/L (21-32) L Anion Gap 11 mmol/L (5-15) Blood Urea Nitrogen 51 mg/dL (7-18) H Creatinine 1.1 MG/DL (0.55-1.30) Estimat Glomerular Filtration Rate 47.6 mL/min (>60) Glucose Level 165 MG/DL (74-106) H Calcium Level 8.7 MG/DL (8.5-10.1) Test 04/05/20 16:26 POC Whole Blood Glucose 294 MG/DL (74-106) H Current Medications Medications (Trade) Dose Ordered Sig/Tiburcio Route PRN Reason Start Time Stop Time Status Last Admin Dose Admin Acetaminophen (Tylenol) 650 mg Q6H PRN ORAL For Pain 03/30/20 10:30 04/29/20 10:29 Albuterol/ Ipratropium (Combivent Respimat) 1 puff Q6HR INH 03/30/20 12:00 04/29/20 11:59 04/05/20 17:14 Ceftriaxone Sodium 1 gm/ Dextrose 50 ml @ 100 mls/hr Q24H IVPB 03/31/20 01:00 04/07/20 00:59 04/05/20 00:34 Dexamethasone Sodium Phosphate (Decadron 10mg/ ml Inj) 6 mg DAILY IV 04/05/20 09:00 04/14/20 08:59 04/05/20 08:29 Dextrose (Dextrose 50%) 25 ml Q30M PRN IV Hypoglycemia 03/30/20 10:30 06/28/20 10:29 Dextrose (Dextrose 50%) 50 ml Q30M PRN IV Hypoglycemia 03/30/20 10:30 06/28/20 10:29 Escitalopram Oxalate (Lexapro) 10 mg DAILY ORAL 03/30/20 10:30 04/29/20 10:29 04/05/20 08:29 Gabapentin (Neurontin) 300 mg THREE TIMES A DAY ORAL 03/30/20 13:00 04/29/20 12:59 04/05/20 17:14 Heparin Sodium (Porcine) (Heparin 5000 units/ml) 5,000 units EVERY 12 HOURS SUBQ 03/30/20 21:00 05/14/20 20:59 04/05/20 20:17 Insulin Aspart (NovoLOG) BEFORE MEALS AND HS SUBQ 03/30/20 11:30 06/28/20 11:29 04/05/20 20:19 Insulin Detemir (Levemir) 10 units DAILY SUBQ 03/30/20 16:00 06/28/20 15:59 04/05/20 08:30 Avelino Puckett MD Apr 05, 2020 22:48
[2020-04-06] VITALS: BP 113/59
[2020-04-06] MEDS: cefTRIAXone 1 GM in D5W 50 ML IVPB SCH (01:01)
[2020-04-06 04:00] VITALS: BP 114/69
[2020-04-06] MEDS: NovoLOG Insulin Flexpen SUBQ SCH ×4 (05:54→20:11)
[2020-04-06 06:52] LABS: HEMATOCRIT 38.6 % (37.0-47.0); MEAN CORPUSCULAR VOLUME 82 FL (80-99); PLATELET COUNT 167 K/UL (150-450); RED BLOOD COUNT 4.71 M/UL (4.20-5.40); RED CELL DISTRIBUTION WIDTH 14.4 % (11.6-14.8); WHITE BLOOD COUNT 15.5 K/UL (4.8-10.8)
[2020-04-06 07:17] LABS: ALBUMIN 2.7 G/DL (3.4-5.0); ALBUMIN/GLOBULIN RATIO 0.6 (1.0-2.7); BILIRUBIN,TOTAL 0.2 MG/DL (0.2-1.0); CALCIUM 9.2 MG/DL (8.5-10.1); CREATININE 1.2 MG/DL (0.55-1.30); POTASSIUM 3.4 MMOL/L (3.5-5.1)
[2020-04-06 08:00] VITALS: BP 118/71
--- NOTE | 2020-04-06 08:55 | Pulmonology Progress Note ---
Subjective ROS Limited/Unobtainable: No Interval Events: None new Constitutional: Reports: fatigue; Denies: fever HEENT: Repors: no symptoms Respiratory: Reports: no symptoms Cardiovascular: Reports: no symptoms Gastrointestinal/Abdominal: Denies: nausea, vomiting, diarrhea Genitourinary: Reports: no symptoms Neurologic: Reports: no symptoms Psychiatric: Denies: depression Skin: Denies: rash Musculoskeletal: Denies: pain Allergies: Coded Allergies: MORPHINE (Verified Allergy, Unknown, 10/27/19) Uncoded Allergies: TAPE (Allergy, Unknown, 10/27/19) Objective Last 24 Hour Vital Signs Date Time Temp Pulse Resp B/P (MAP) Pulse Ox O2 Delivery O2 Flow Rate FiO2 04/06/20 04:00 98.1 73 18 114/69 (84) 96 04/06/20 00:00 97.4 72 18 113/59 (77) 96 04/05/20 20:57 Room Air 04/05/20 20:00 97.4 74 18 121/62 (81) 96 04/05/20 16:00 97.0 86 18 120/70 (87) 96 04/05/20 12:00 97.7 87 18 125/69 (87) 97 04/05/20 09:00 Room Air Intake and Output 04/05/20 04/06/20 19:00 07:00 Intake Total 300 ml 150 ml Output Total 250 ml Balance 300 ml -100 ml Intake Oral 300 ml 150 ml Output Urine Total 250 ml # Voids 2 # Bowel Movements 1 Objective 04/06/2020 96% on RA; CXR pending 04/05/2020 Saturating 97% on RA; renal US reveals no obstructive uropathy 04/04/2020 saturating 94% on RA; x1 loose BM overnight per PM RN, now resolved; C diff neg; renal US pending 04/03/2020 saturating 92% on RA pt alert; saturating 96% on RA General Appearance: no acute distress HEENT: normocephalic Respiratory: chest wall non-tender, lungs clear Cardiovascular: normal peripheral pulses, JVD - mild Abdomen: normal bowel sounds Genitourinary: other - female external cath Extremities: no cyanosis, other - trace edema Laboratory Tests 04/05/20 11:23: POC Whole Blood Glucose 263H 04/05/20 16:26: POC Whole Blood Glucose 294H 04/06/20 04:00: White Blood Count 15.5H, Red Blood Count 4.71, Hemoglobin 13.0, Hematocrit 38.6, Mean Corpuscular Volume 82, Mean Corpuscular Hemoglobin 27.5, Mean Corpuscular Hemoglobin Concent 33.6, Red Cell Distribution Width 14.4, Platelet Count 167, Mean Platelet Volume 7.9, Neutrophils (%) (Auto) , Lymphocytes (%) (Auto) , Monocytes (%) (Auto) , Eosinophils (%) (Auto) , Basophils (%) (Auto) , Neutrophils % (Manual) [Pending], Lymphocytes % (Manual) [Pending], Platelet Estimate [Pending], Platelet Morphology [Pending], Sodium Level 137, Potassium Level 3.4L, Chloride Level 102, Carbon Dioxide Level 22, Anion Gap 13, Blood Urea Nitrogen 52H, Creatinine 1.2, Estimat Glomerular Filtration Rate 43.0, Glucose Level 188H, Calcium Level 9.2, Total Bilirubin 0.2, Aspartate Amino Transf (AST/SGOT) 26, Alanine Aminotransferase (ALT/SGPT) 76, Alkaline Phosphatase 153H, Total Protein 7.1, Albumin 2.7L, Globulin 4.4, Albumin/Globulin Ratio 0.6L 04/06/20 05:29: POC Whole Blood Glucose 180H Current Medications Medications (Trade) Dose Ordered Sig/Tiburcio Route PRN Reason Start Time Stop Time Status Last Admin Dose Admin Acetaminophen (Tylenol) 650 mg Q6H PRN ORAL For Pain 03/30/20 10:30 04/29/20 10:29 Albuterol/ Ipratropium (Combivent Respimat) 1 puff Q6HR INH 03/30/20 12:00 04/29/20 11:59 04/06/20 05:20 Ceftriaxone Sodium 1 gm/ Dextrose 50 ml @ 100 mls/hr Q24H IVPB 03/31/20 01:00 04/07/20 00:59 04/06/20 01:01 Dexamethasone Sodium Phosphate (Decadron 10mg/ ml Inj) 6 mg DAILY IV 04/05/20 09:00 04/14/20 08:59 04/05/20 08:29 Dextrose (Dextrose 50%) 25 ml Q30M PRN IV Hypoglycemia 03/30/20 10:30 06/28/20 10:29 Dextrose (Dextrose 50%) 50 ml Q30M PRN IV Hypoglycemia 03/30/20 10:30 06/28/20 10:29 Escitalopram Oxalate (Lexapro) 10 mg DAILY ORAL 03/30/20 10:30 04/29/20 10:29 04/05/20 08:29 Gabapentin (Neurontin) 300 mg THREE TIMES A DAY ORAL 03/30/20 13:00 04/29/20 12:59 04/05/20 17:14 Heparin Sodium (Porcine) (Heparin 5000 units/ml) 5,000 units EVERY 12 HOURS SUBQ 03/30/20 21:00 05/14/20 20:59 04/05/20 20:17 Insulin Aspart (NovoLOG) BEFORE MEALS AND HS SUBQ 03/30/20 11:30 06/28/20 11:29 04/06/20 05:54 Insulin Detemir (Levemir) 10 units DAILY SUBQ 03/30/20 16:00 06/28/20 15:59 04/05/20 08:30 Assessment/Plan Assessment/Plan 1. COVID-19 pneumonia. - defer the use of remdesivir to ID specialist. - 03/31/2020 CXR demonstrates partial improvement of infiltrates vs edema - 04/06/2020 CXR pending 2. History of hypoxemia. - Currently normoxemic on room air - saturating 96% on RA 3. Diabetes mellitus. - on glucose-lowering agents 4. Hx of Hypertension. - per primary MD 5. Hyperlipidemia. 6. Asthma. - On combivent 7. DVT prophylaxis with heparin subcu. 8. Acute renal failure; improving - BUN 76 -> 87 -> 74 -> 62 -> 51 - Cr 2.2 -> 2.6 -> 1.6 -> 1.2 -> 1.1 - K 3.1 -> 3.5 - Bolus of 250 ml NS given 04/01/2020 am by renal - hold off nephrotoxins per renal - Garcia cath per Dr. Casey davidson We will follow closely The care for this patient was discussed with my supervising physician Time spent for this case was approximately 31 minutes The patient was seen and examined at bedside and all new and available data was reviewed in the patients chart. I agree with the above findings, impression, and plan. (Patient was seen earlier today. Signature timestamp does not reflect patient encounter time) Edwin Tavera MD Apr 06, 2020 08:55 Lorne Hightower MD Apr 06, 2020 17:28
[2020-04-06] MEDS: dexAMETHasone 10mg/ml Inj IV SCH (09:49)
[2020-04-06] MEDS: Heparin 5000 units/ml inj SUBQ SCH ×2 (09:56→20:10)
[2020-04-06] MEDS: Levemir Flexpen SUBQ SCH (09:59)
--- NOTE | 2020-04-06 11:40 | Cardiac Electrophysiology PN ---
Assessment/Plan Assessment/Plan 1. Congestive heart failure EF 40% with BNP of 564. Off Lasix as getting ARF. 2. Hypertension, off Lasix and lisinopril . On p.r.n. hydralazine. 3. S/P Med[employer] pacer 2013. Will interrogated after Covid is negative 4. COVID pneumonia, on dexamethasone. 5. Diabetes, on insulin. 6. Hyperlipidemia, on Lipitor. 7. Acute renal failure with BUN/CR 87/2.6>>> 51/1.1 Off Lasix and lisinopril improved to 51/1.1 DW RN Subjective Subjective In Covid isolation . EF 40-45%. Alert on 2 liter NC Objective Last 24 Hour Vital Signs Date Time Temp Pulse Resp B/P (MAP) Pulse Ox O2 Delivery O2 Flow Rate FiO2 04/06/20 09:00 Room Air 04/06/20 08:00 97.2 77 18 118/71 (87) 98 04/06/20 04:00 98.1 73 18 114/69 (84) 96 04/06/20 00:00 97.4 72 18 113/59 (77) 96 04/05/20 20:57 Room Air 04/05/20 20:00 97.4 74 18 121/62 (81) 96 04/05/20 16:00 97.0 86 18 120/70 (87) 96 04/05/20 12:00 97.7 87 18 125/69 (87) 97 Intake and Output 04/05/20 04/06/20 19:00 07:00 Intake Total 300 ml 150 ml Output Total 250 ml Balance 300 ml -100 ml Intake Oral 300 ml 150 ml Output Urine Total 250 ml # Voids 2 # Bowel Movements 1 Laboratory Tests Test 04/05/20 16:26 04/06/20 04:00 04/06/20 05:29 04/06/20 09:54 POC Whole Blood Glucose 294 MG/DL (74-106) H 180 MG/DL (74-106) H Pending White Blood Count 15.5 K/UL (4.8-10.8) H Red Blood Count 4.71 M/UL (4.20-5.40) Hemoglobin 13.0 G/DL (12.0-16.0) Hematocrit 38.6 % (37.0-47.0) Mean Corpuscular Volume 82 FL (80-99) Mean Corpuscular Hemoglobin 27.5 PG (27.0-31.0) Mean Corpuscular Hemoglobin Concent 33.6 G/DL (32.0-36.0) Red Cell Distribution Width 14.4 % (11.6-14.8) Platelet Count 167 K/UL (150-450) Mean Platelet Volume 7.9 FL (6.5-10.1) Neutrophils (%) (Auto) % (45.0-75.0) Lymphocytes (%) (Auto) % (20.0-45.0) Monocytes (%) (Auto) % (1.0-10.0) Eosinophils (%) (Auto) % (0.0-3.0) Basophils (%) (Auto) % (0.0-2.0) Neutrophils % (Manual) Pending Lymphocytes % (Manual) Pending Platelet Estimate Pending Platelet Morphology Pending Sodium Level 137 MMOL/L (136-145) Potassium Level 3.4 MMOL/L (3.5-5.1) L Chloride Level 102 MMOL/L (98-107) Carbon Dioxide Level 22 MMOL/L (21-32) Anion Gap 13 mmol/L (5-15) Blood Urea Nitrogen 52 mg/dL (7-18) H Creatinine 1.2 MG/DL (0.55-1.30) Estimat Glomerular Filtration Rate 43.0 mL/min (>60) Glucose Level 188 MG/DL (74-106) H Calcium Level 9.2 MG/DL (8.5-10.1) Total Bilirubin 0.2 MG/DL (0.2-1.0) Aspartate Amino Transf (AST/SGOT) 26 U/L (15-37) Alanine Aminotransferase (ALT/SGPT) 76 U/L (12-78) Alkaline Phosphatase 153 U/L (46-116) H Total Protein 7.1 G/DL (6.4-8.2) Albumin 2.7 G/DL (3.4-5.0) L Globulin 4.4 g/dL Albumin/Globulin Ratio 0.6 (1.0-2.7) L Objective HEAD AND NECK: Some mild JVD. LUNGS: Coarse rhonchi. CARDIOVASCULAR: Regular S1 and S2 with no gallop or murmur.Pacer in Left subclavian. ABDOMEN: Soft. EXTREMITIES: Mild to moderate edema. Rafiq Cote MD Apr 06, 2020 11:40
[2020-04-06 12:00] VITALS: BP 116/62
--- NOTE | 2020-04-06 13:21 | Nephrology Progress Note ---
Assessment/Plan Plan #Hyponatremia- hypervolumic vs SIADH in the setting of covid #acute on chronic diastolic CHF #COVID infection #HTN #DM #HLD #Obesity - ID eval - pul eval - card eval - HOLD lasix 20 IV BID - continue IV antibiotics per ID - HOLD lisinopril 10mg daily - Bg control - monitor electrolytes - avoid nephrotoxins time spent 65 mins Subjective ROS Limited/Unobtainable: No Constitutional: Reports: weakness HEENT: Denies: no symptoms, eye pain, blurred vision, tearing, double vision, ear pain, ear discharge, nose pain, nose congestion, throat pain, throat swelling, mouth pain, mouth swelling, other Genitourinary: Denies: no symptoms, burning, discharge, frequency, flank pain, hematuria, incontinence, pain, urgency, other Neurologic/Psychiatric: Denies: no symptoms, anxiety, depressed, emotional problems, headache, numbness, paresthesia, pre-existing deficit, seizure, tingling, tremors, weakness, other Subjective BP stable Cr down to 1.2 Breathing stable on RA Objective Objective Last 24 Hour Vital Signs Date Time Temp Pulse Resp B/P (MAP) Pulse Ox O2 Delivery O2 Flow Rate FiO2 04/06/20 12:00 97.3 82 20 116/62 (80) 93 04/06/20 09:00 Room Air 04/06/20 08:00 97.2 77 18 118/71 (87) 98 04/06/20 04:00 98.1 73 18 114/69 (84) 96 04/06/20 00:00 97.4 72 18 113/59 (77) 96 04/05/20 20:57 Room Air 04/05/20 20:00 97.4 74 18 121/62 (81) 96 04/05/20 16:00 97.0 86 18 120/70 (87) 96 Intake and Output 04/05/20 04/06/20 19:00 07:00 Intake Total 300 ml 150 ml Output Total 250 ml Balance 300 ml -100 ml Intake Oral 300 ml 150 ml Output Urine Total 250 ml # Voids 2 # Bowel Movements 1 Laboratory Tests 04/05/20 16:26: POC Whole Blood Glucose 294H 04/06/20 04:00: White Blood Count 15.5H, Red Blood Count 4.71, Hemoglobin 13.0, Hematocrit 38.6, Mean Corpuscular Volume 82, Mean Corpuscular Hemoglobin 27.5, Mean Corpuscular Hemoglobin Concent 33.6, Red Cell Distribution Width 14.4, Platelet Count 167, Mean Platelet Volume 7.9, Neutrophils (%) (Auto) , Lymphocytes (%) (Auto) , Monocytes (%) (Auto) , Eosinophils (%) (Auto) , Basophils (%) (Auto) , Differential Total Cells Counted 100, Neutrophils % (Manual) 88H, Lymphocytes % (Manual) 5L, Monocytes % (Manual) 7, Eosinophils % (Manual) 0, Basophils % (Manual) 0, Band Neutrophils 0, Platelet Estimate Adequate, Platelet Morphology Normal, Red Blood Cell Morphology Normal, Sodium Level 137, Potassium Level 3.4L , Chloride Level 102, Carbon Dioxide Level 22, Anion Gap 13, Blood Urea Nitrogen 52H, Creatinine 1.2, Estimat Glomerular Filtration Rate 43.0, Glucose Level 188H , Calcium Level 9.2, Total Bilirubin 0.2, Aspartate Amino Transf (AST/SGOT) 26, Alanine Aminotransferase (ALT/SGPT) 76, Alkaline Phosphatase 153H, Total Protein 7.1, Albumin 2.7L, Globulin 4.4, Albumin/Globulin Ratio 0.6L 04/06/20 05:29: POC Whole Blood Glucose 180H 04/06/20 09:54: POC Whole Blood Glucose [Pending] Height (Feet): 5 Height (Inches): 3.00 Weight (Pounds): 235 Kell Adorno M.D. Apr 06, 2020 13:21
[2020-04-06 16:00] VITALS: BP 117/63
--- NOTE | 2020-04-06 17:06 | Diagnostic Imaging Report ---
Indication: Shortness of breath Technique: Single AP view of the chest. Comparison: Chest radiograph Dated 03/31/2020 Findings: The cardiomediastinal silhouette is unchanged in appearance, with persistent cardiomegaly. Unchanged appearance of left approach ICD/pacemaker. Persistent bilateral perihilar airspace opacities. Slight interval worsening of interstitial edema. No new airspace consolidation. No pneumothorax. No increasing pleural effusion. IMPRESSION: Slight interval worsening of interstitial edema.
--- NOTE | 2020-04-06 17:34 | Surgery Progress Note ---
Surgery Progress Note Subjective Symptoms: improved, tolerating diet, passing flatus Objective Last 24 Hour Vital Signs Date Time Temp Pulse Resp B/P (MAP) Pulse Ox O2 Delivery O2 Flow Rate FiO2 04/06/20 16:00 97.9 84 18 117/63 (81) 93 04/06/20 12:00 97.3 82 20 116/62 (80) 93 04/06/20 09:00 Room Air 04/06/20 08:00 97.2 77 18 118/71 (87) 98 04/06/20 04:00 98.1 73 18 114/69 (84) 96 04/06/20 00:00 97.4 72 18 113/59 (77) 96 04/05/20 20:57 Room Air 04/05/20 20:00 97.4 74 18 121/62 (81) 96 I&O Intake and Output 04/05/20 04/06/20 19:00 07:00 Intake Total 300 ml 150 ml Output Total 250 ml Balance 300 ml -100 ml Intake Oral 300 ml 150 ml Output Urine Total 250 ml # Voids 2 # Bowel Movements 1 Dressing: saturated Cardiovascular: RSR Respiratory: decreased breath sounds Abdomen: non-tender, present bowel sounds Extremities: no edema, no tenderness, no cyanosis Laboratory Tests Test 04/06/20 04:00 04/06/20 05:29 04/06/20 09:54 04/06/20 16:42 White Blood Count 15.5 K/UL (4.8-10.8) H Red Blood Count 4.71 M/UL (4.20-5.40) Hemoglobin 13.0 G/DL (12.0-16.0) Hematocrit 38.6 % (37.0-47.0) Mean Corpuscular Volume 82 FL (80-99) Mean Corpuscular Hemoglobin 27.5 PG (27.0-31.0) Mean Corpuscular Hemoglobin Concent 33.6 G/DL (32.0-36.0) Red Cell Distribution Width 14.4 % (11.6-14.8) Platelet Count 167 K/UL (150-450) Mean Platelet Volume 7.9 FL (6.5-10.1) Neutrophils (%) (Auto) % (45.0-75.0) Lymphocytes (%) (Auto) % (20.0-45.0) Monocytes (%) (Auto) % (1.0-10.0) Eosinophils (%) (Auto) % (0.0-3.0) Basophils (%) (Auto) % (0.0-2.0) Differential Total Cells Counted 100 Neutrophils % (Manual) 88 % (45-75) H Lymphocytes % (Manual) 5 % (20-45) L Monocytes % (Manual) 7 % (1-10) Eosinophils % (Manual) 0 % (0-3) Basophils % (Manual) 0 % (0-2) Band Neutrophils 0 % (0-8) Platelet Estimate Adequate Platelet Morphology Normal Red Blood Cell Morphology Normal Sodium Level 137 MMOL/L (136-145) Potassium Level 3.4 MMOL/L (3.5-5.1) L Chloride Level 102 MMOL/L (98-107) Carbon Dioxide Level 22 MMOL/L (21-32) Anion Gap 13 mmol/L (5-15) Blood Urea Nitrogen 52 mg/dL (7-18) H Creatinine 1.2 MG/DL (0.55-1.30) Estimat Glomerular Filtration Rate 43.0 mL/min (>60) Glucose Level 188 MG/DL (74-106) H Calcium Level 9.2 MG/DL (8.5-10.1) Total Bilirubin 0.2 MG/DL (0.2-1.0) Aspartate Amino Transf (AST/SGOT) 26 U/L (15-37) Alanine Aminotransferase (ALT/SGPT) 76 U/L (12-78) Alkaline Phosphatase 153 U/L (46-116) H Total Protein 7.1 G/DL (6.4-8.2) Albumin 2.7 G/DL (3.4-5.0) L Globulin 4.4 g/dL Albumin/Globulin Ratio 0.6 (1.0-2.7) L POC Whole Blood Glucose 180 MG/DL (74-106) H Pending 310 MG/DL (74-106) H Plan Problems: (1) Pneumonia (2) Coronavirus infection (3) COVID-19 Assessment & Plan: as per ID (4) Abnormal LFTs Assessment & Plan: US abd ordered pending results trend lft's exam with grimace upon abd exam general no worse with RUQ lip / rochelle okay for diet will follow with recs thank you Gallbladder has been removed Common bile duct measures 12 mm in diameter. No intrahepatic biliary ductal dilatation. Liver demonstrates somewhat increased echogenicity, no focal abnormality. Portal vein and hepatic veins are patent. Pancreas is unremarkable. Spleen is unremarkable. Left kidney measures 10.3 cm in length. Right kidney measures 8.7 cm length. Both kidneys demonstrate normal echogenicity, mild cortical thinning. There is no hydronephrosis. No focal abnormality . The aorta is partially obscured. Impression: Absent gallbladder. Dilated extra hepatic ducts are likely related to age and postcholecystectomy state, but downstream obstruction also possible. Consider MRCP if clinically indicated Liver demonstrates diffusely increased echogenicity, consistent with diffuse hepatocellular disease, most likely fatty change.. Mild thinning of the renal cortices. Note incomplete visualization of the abdominal aorta DAILY ESTIMATED NEEDS: Needs based on Obese, cardiac, DM 66kg abw 20-25 kcals/kg 4114-8743 total kcals 1-1.5 g protein/kg 66-99 g total protein 20-25 mL/kg 4255-6275 total fluid mLs NUTRITION DIAGNOSIS: Altered nutrition related lab values r/t clinical status, DM as evidenced by elev BGs (203, 173, 192), pt on long and short acting insulin. CURRENT DIET:CCHO LOW, [facility] soft chopped PO DIET RECOMMENDATIONS: Maintain CCHO LOW diet (Texture as tolerated or per [employer]) ADDITIONAL RECOMMENDATIONS: 1) Daily calibrated bedscale wt 2) Monitor PO intake and tolerance closely- variable, COVID-19 positive 3) F/up w/ WC eval add MVI x1 4) Monitor BGs w/ long acting and short acting insulin, need for adjustment Jake Rodríguez Apr 06, 2020 17:34
[2020-04-06 20:00] VITALS: BP 115/62
[2020-04-07] VITALS: BP 113/67
[2020-04-07 04:00] VITALS: BP 112/60
[2020-04-07] MEDS: NovoLOG Insulin Flexpen SUBQ SCH ×4 (05:47→21:28)
[2020-04-07 08:00] VITALS: BP 128/72
[2020-04-07] MEDS: dexAMETHasone 10mg/ml Inj IV SCH (08:34)
[2020-04-07] MEDS: Heparin 5000 units/ml inj SUBQ SCH ×2 (08:34→21:00)
[2020-04-07] MEDS: Levemir Flexpen SUBQ SCH (08:50)
[2020-04-07 09:12] LABS: BASOPHILS % (AUTO) 0.5 % (0.0-2.0); EOSINOPHILS % (AUTO) 0.2 % (0.0-3.0); HEMATOCRIT 36.5 % (37.0-47.0); HEMOGLOBIN 13.4 G/DL (12.0-16.0); MEAN CORPUSCULAR VOLUME 76 FL (80-99); MONOCYTES % (AUTO) 5.7 % (1.0-10.0); NEUTROPHILS % (AUTO) 83.6 % (45.0-75.0); PLATELET COUNT 184 K/UL (150-450); RED BLOOD COUNT 4.78 M/UL (4.20-5.40); RED CELL DISTRIBUTION WIDTH 14.9 % (11.6-14.8); WHITE BLOOD COUNT 15.9 K/UL (4.8-10.8)
--- NOTE | 2020-04-07 09:37 | Nephrology Progress Note ---
Assessment/Plan Plan #Hyponatremia- hypervolumic vs SIADH in the setting of covid #acute on chronic diastolic CHF #COVID infection #HTN #DM #HLD #Obesity - ID eval - pul eval - card eval - HOLD lasix 20 IV BID - continue IV antibiotics per ID - HOLD lisinopril 10mg daily - Bg control - monitor electrolytes - avoid nephrotoxins time spent 65 mins Subjective ROS Limited/Unobtainable: No Constitutional: Reports: weakness HEENT: Denies: no symptoms, eye pain, blurred vision, tearing, double vision, ear pain, ear discharge, nose pain, nose congestion, throat pain, throat swelling, mouth pain, mouth swelling, other Genitourinary: Denies: no symptoms, burning, discharge, frequency, flank pain, hematuria, incontinence, pain, urgency, other Neurologic/Psychiatric: Denies: no symptoms, anxiety, depressed, emotional problems, headache, numbness, paresthesia, pre-existing deficit, seizure, tingling, tremors, weakness, other Subjective BP stable Cr down to 1.2 Breathing stable on RA Objective Objective Last 24 Hour Vital Signs Date Time Temp Pulse Resp B/P (MAP) Pulse Ox O2 Delivery O2 Flow Rate FiO2 04/07/20 08:00 97.2 82 19 128/72 (90) 97 04/07/20 04:00 97.4 75 17 112/60 (77) 94 04/07/20 00:00 97.7 76 18 113/67 (82) 95 04/06/20 21:41 Room Air 04/06/20 20:00 98.1 83 18 115/62 (79) 95 04/06/20 16:00 97.9 84 18 117/63 (81) 93 04/06/20 12:00 97.3 82 20 116/62 (80) 93 Intake and Output 04/06/20 04/07/20 19:00 07:00 Intake Total 840 ml Output Total 600 ml Balance 240 ml Intake Oral 840 ml Output Urine Total 600 ml Laboratory Tests 04/06/20 09:54: POC Whole Blood Glucose [Pending] 04/06/20 16:42: POC Whole Blood Glucose 310H 04/06/20 19:32: POC Whole Blood Glucose 319H 04/07/20 05:26: POC Whole Blood Glucose 149H 04/07/20 08:50: White Blood Count 15.9H, Red Blood Count 4.78, Hemoglobin 13.4, Hematocrit 36.5L , Mean Corpuscular Volume 76L, Mean Corpuscular Hemoglobin 28.1, Mean Corpuscular Hemoglobin Concent 36.7H, Red Cell Distribution Width 14.9H, Pl atelet Count 184, Mean Platelet Volume 8.5, Neutrophils (%) (Auto) 83.6H, Lymphocytes (%) (Auto) 10.0L, Monocytes (%) (Auto) 5.7, Eosinophils (%) (Auto) 0.2, Basophils (%) (Auto) 0.5 Height (Feet): 5 Height (Inches): 3.00 Weight (Pounds): 235 Kell Adorno M.D. Apr 07, 2020 09:37
--- NOTE | 2020-04-07 10:24 | Cardiac Electrophysiology PN ---
Assessment/Plan Assessment/Plan 1. Congestive heart failure EF 40% with BNP of 564. Off Lasix as getting ARF. 2. Hypertension . On p.r.n. hydralazine. 3. S/P Medtronic pacer 2013. Will interrogated after Covid is negative 4. COVID pneumonia, on dexamethasone. 5. Diabetes, on insulin. 6. Hyperlipidemia, on Lipitor. 7. Acute renal failure with BUN/CR 87/2.6>>> 51/1.1 DW RN Subjective Subjective In Covid isolation. EF 40-45%. Alert on 2 liter NC Objective Last 24 Hour Vital Signs Date Time Temp Pulse Resp B/P (MAP) Pulse Ox O2 Delivery O2 Flow Rate FiO2 04/07/20 08:35 Room Air 04/07/20 08:00 97.2 82 19 128/72 (90) 97 04/07/20 04:00 97.4 75 17 112/60 (77) 94 04/07/20 00:00 97.7 76 18 113/67 (82) 95 04/06/20 21:41 Room Air 04/06/20 20:00 98.1 83 18 115/62 (79) 95 04/06/20 16:00 97.9 84 18 117/63 (81) 93 04/06/20 12:00 97.3 82 20 116/62 (80) 93 Intake and Output 04/06/20 04/07/20 19:00 07:00 Intake Total 840 ml Output Total 600 ml Balance 240 ml Intake Oral 840 ml Output Urine Total 600 ml Laboratory Tests Test 04/06/20 16:42 04/06/20 19:32 04/07/20 05:26 04/07/20 08:50 POC Whole Blood Glucose 310 MG/DL (74-106) H 319 MG/DL (74-106) H 149 MG/DL (74-106) H White Blood Count 15.9 K/UL (4.8-10.8) H Red Blood Count 4.78 M/UL (4.20-5.40) Hemoglobin 13.4 G/DL (12.0-16.0) Hematocrit 36.5 % (37.0-47.0) L Mean Corpuscular Volume 76 FL (80-99) L Mean Corpuscular Hemoglobin 28.1 PG (27.0-31.0) Mean Corpuscular Hemoglobin Concent 36.7 G/DL (32.0-36.0) H Red Cell Distribution Width 14.9 % (11.6-14.8) H Platelet Count 184 K/UL (150-450) Mean Platelet Volume 8.5 FL (6.5-10.1) Neutrophils (%) (Auto) 83.6 % (45.0-75.0) H Lymphocytes (%) (Auto) 10.0 % (20.0-45.0) L Monocytes (%) (Auto) 5.7 % (1.0-10.0) Eosinophils (%) (Auto) 0.2 % (0.0-3.0) Basophils (%) (Auto) 0.5 % (0.0-2.0) Sodium Level Pending Potassium Level Pending Chloride Level Pending Carbon Dioxide Level Pending Blood Urea Nitrogen Pending Creatinine Pending Estimat Glomerular Filtration Rate Pending Glucose Level Pending Calcium Level Pending Objective HEAD AND NECK: Some mild JVD. LUNGS: Coarse rhonchi. CARDIOVASCULAR: Regular S1 and S2 with no gallop or murmur.Pacer in Left subclavian. ABDOMEN: Soft. EXTREMITIES: Mild to moderate edema. Rafiq Cote MD Apr 07, 2020 10:24
[2020-04-07 10:27] LABS: CALCIUM 8.9 MG/DL (8.5-10.1); POTASSIUM 3.4 MMOL/L (3.5-5.1)
[2020-04-07 12:04] VITALS: BP 127/56
--- NOTE | 2020-04-07 12:12 | Pulmonology Progress Note ---
Subjective ROS Limited/Unobtainable: No Interval Events: None new Constitutional: Reports: fatigue; Denies: fever HEENT: Repors: no symptoms Respiratory: Reports: no symptoms Cardiovascular: Reports: no symptoms Gastrointestinal/Abdominal: Denies: nausea, vomiting, diarrhea Genitourinary: Reports: no symptoms Neurologic: Reports: no symptoms Psychiatric: Denies: depression Skin: Denies: rash Musculoskeletal: Denies: pain Allergies: Coded Allergies: MORPHINE (Verified Allergy, Unknown, 10/27/19) Uncoded Allergies: TAPE (Allergy, Unknown, 10/27/19) Objective Last 24 Hour Vital Signs Date Time Temp Pulse Resp B/P (MAP) Pulse Ox O2 Delivery O2 Flow Rate FiO2 04/07/20 12:04 97.1 83 19 127/56 (79) 97 04/07/20 08:35 Room Air 04/07/20 08:00 97.2 82 19 128/72 (90) 97 04/07/20 04:00 97.4 75 17 112/60 (77) 94 04/07/20 00:00 97.7 76 18 113/67 (82) 95 04/06/20 21:41 Room Air 04/06/20 20:00 98.1 83 18 115/62 (79) 95 04/06/20 16:00 97.9 84 18 117/63 (81) 93 Intake and Output 04/06/20 04/07/20 19:00 07:00 Intake Total 840 ml Output Total 600 ml Balance 240 ml Intake Oral 840 ml Output Urine Total 600 ml Objective 04/07/2020 Saturating well on RA; CXR- Persistent bilateral perihilar airspace opacities. Slight interval worsening of interstitial edema. 04/06/2020 96% on RA; CXR pending 04/05/2020 Saturating 97% on RA; renal US reveals no obstructive uropathy 04/04/2020 saturating 94% on RA; x1 loose BM overnight per PM RN, now resolved; C diff neg; renal US pending 04/03/2020 saturating 92% on RA pt alert; saturating 96% on RA General Appearance: no acute distress HEENT: normocephalic Respiratory: chest wall non-tender, lungs clear Cardiovascular: normal peripheral pulses, JVD - mild Abdomen: normal bowel sounds Genitourinary: other - female external cath Extremities: no cyanosis Laboratory Tests 04/06/20 16:42: POC Whole Blood Glucose 310H 04/06/20 19:32: POC Whole Blood Glucose 319H 04/07/20 05:26: POC Whole Blood Glucose 149H 04/07/20 08:50: White Blood Count 15.9H, Red Blood Count 4.78, Hemoglobin 13.4, Hematocrit 36.5L , Mean Corpuscular Volume 76L, Mean Corpuscular Hemoglobin 28.1, Mean Corpuscular Hemoglobin Concent 36.7H, Red Cell Distribution Width 14.9H, Platelet Count 184, Mean Platelet Volume 8.5, Neutrophils (%) (Auto) 83.6H, Lymphocytes (%) (Auto) 10.0L, Monocytes (%) (Auto) 5.7, Eosinophils (%) (Auto) 0.2, Basophils (%) (Auto) 0.5, Sodium Level 139, Potassium Level 3.4L, Chloride Level 106, Carbon Dioxide Level 25, Anion Gap 8, Blood Urea Nitrogen 50H, Creatinine 1.0, Estimat Glomerular Filtration Rate 53.1, Glucose Level 130H, Calcium Level 8.9 04/07/20 11:39: POC Whole Blood Glucose [Pending] Current Medications Medications (Trade) Dose Ordered Sig/Tiburcio Route PRN Reason Start Time Stop Time Status Last Admin Dose Admin Acetaminophen (Tylenol) 650 mg Q6H PRN ORAL For Pain 03/30/20 10:30 04/29/20 10:29 Albuterol/ Ipratropium (Combivent Respimat) 1 puff Q6HR INH 03/30/20 12:00 04/29/20 11:59 04/07/20 05:29 Dexamethasone Sodium Phosphate (Decadron 10mg/ ml Inj) 6 mg DAILY IV 04/05/20 09:00 04/14/20 08:59 04/07/20 08:34 Dextrose (Dextrose 50%) 25 ml Q30M PRN IV Hypoglycemia 03/30/20 10:30 06/28/20 10:29 Dextrose (Dextrose 50%) 50 ml Q30M PRN IV Hypoglycemia 03/30/20 10:30 06/28/20 10:29 Escitalopram Oxalate (Lexapro) 10 mg DAILY ORAL 03/30/20 10:30 04/29/20 10:29 04/07/20 08:34 Gabapentin (Neurontin) 300 mg THREE TIMES A DAY ORAL 03/30/20 13:00 04/29/20 12:59 04/07/20 08:34 Heparin Sodium (Porcine) (Heparin 5000 units/ml) 5,000 units EVERY 12 HOURS SUBQ 03/30/20 21:00 05/14/20 20:59 04/07/20 08:34 Insulin Aspart (NovoLOG) BEFORE MEALS AND HS SUBQ 03/30/20 11:30 06/28/20 11:29 04/07/20 11:42 Insulin Detemir (Levemir) 10 units DAILY SUBQ 03/30/20 16:00 06/28/20 15:59 04/07/20 08:50 Assessment/Plan Assessment/Plan 1. COVID-19 pneumonia. - defer the use of remdesivir to ID specialist. - 03/31/2020 CXR demonstrates partial improvement of infiltrates vs edema - 04/06/2020 CXR Persistent bilateral perihilar airspace opacities. Slight interval worsening of interstitial edema. 2. History of hypoxemia. - Currently normoxemic on room air 3. Diabetes mellitus. - on glucose-lowering agents 4. Hx of Hypertension. - per primary MD 5. Hyperlipidemia. 6. Asthma. - On combivent 7. DVT prophylaxis with heparin subcu. 8. Acute renal failure; improving - BUN 76 -> 87 -> 74 -> 62 -> 51 -> 50 - Cr 2.2 -> 2.6 -> 1.6 -> 1.2 -> 1.1 - K 3.1 -> 3.5 -> 3.4 - Bolus of 250 ml NS given 04/01/2020 am by renal - hold off nephrotoxins per renal - s/p Garcia cath per Dr. Peña - now on female external cath Cont monitor lytes dc planning per watch case polisher We will follow closely The care for this patient was discussed with my supervising physician Time spent for this case was approximately 31 minutes The patient was seen and examined at bedside and all new and available data was reviewed in the patients chart. I agree with the above findings, impression, and plan. (Patient was seen earlier today. Signature timestamp does not reflect patient encounter time) Edwin Tavera MD Apr 07, 2020 12:12 Lorne Hightower MD Apr 07, 2020 18:00
[2020-04-07] MEDS ORDERED: DECADRON6 MG PO (13:13)
--- NOTE | 2020-04-07 14:38 | Surgery Progress Note ---
Surgery Progress Note Subjective Symptoms: improved, tolerating diet, passing flatus Objective Last 24 Hour Vital Signs Date Time Temp Pulse Resp B/P (MAP) Pulse Ox O2 Delivery O2 Flow Rate FiO2 04/07/20 12:04 97.1 83 19 127/56 (79) 97 04/07/20 08:35 Room Air 04/07/20 08:00 97.2 82 19 128/72 (90) 97 04/07/20 04:00 97.4 75 17 112/60 (77) 94 04/07/20 00:00 97.7 76 18 113/67 (82) 95 04/06/20 21:41 Room Air 04/06/20 20:00 98.1 83 18 115/62 (79) 95 04/06/20 16:00 97.9 84 18 117/63 (81) 93 I&O Intake and Output 04/06/20 04/07/20 19:00 07:00 Intake Total 840 ml Output Total 600 ml Balance 240 ml Intake Oral 840 ml Output Urine Total 600 ml Dressing: saturated Cardiovascular: RSR Respiratory: decreased breath sounds Abdomen: non-tender, present bowel sounds Extremities: no tenderness, no cyanosis Laboratory Tests Test 04/06/20 16:42 04/06/20 19:32 04/07/20 05:26 04/07/20 08:50 POC Whole Blood Glucose 310 MG/DL (74-106) H 319 MG/DL (74-106) H 149 MG/DL (74-106) H White Blood Count 15.9 K/UL (4.8-10.8) H Red Blood Count 4.78 M/UL (4.20-5.40) Hemoglobin 13.4 G/DL (12.0-16.0) Hematocrit 36.5 % (37.0-47.0) L Mean Corpuscular Volume 76 FL (80-99) L Mean Corpuscular Hemoglobin 28.1 PG (27.0-31.0) Mean Corpuscular Hemoglobin Concent 36.7 G/DL (32.0-36.0) H Red Cell Distribution Width 14.9 % (11.6-14.8) H Platelet Count 184 K/UL (150-450) Mean Platelet Volume 8.5 FL (6.5-10.1) Neutrophils (%) (Auto) 83.6 % (45.0-75.0) H Lymphocytes (%) (Auto) 10.0 % (20.0-45.0) L Monocytes (%) (Auto) 5.7 % (1.0-10.0) Eosinophils (%) (Auto) 0.2 % (0.0-3.0) Basophils (%) (Auto) 0.5 % (0.0-2.0) Sodium Level 139 MMOL/L (136-145) Potassium Level 3.4 MMOL/L (3.5-5.1) L Chloride Level 106 MMOL/L (98-107) Carbon Dioxide Level 25 MMOL/L (21-32) Anion Gap 8 mmol/L (5-15) Blood Urea Nitrogen 50 mg/dL (7-18) H Creatinine 1.0 MG/DL (0.55-1.30) Estimat Glomerular Filtration Rate 53.1 mL/min (>60) Glucose Level 130 MG/DL (74-106) H Calcium Level 8.9 MG/DL (8.5-10.1) Test 04/07/20 11:39 POC Whole Blood Glucose Pending Plan Problems: (1) Pneumonia (2) Coronavirus infection (3) COVID-19 Assessment & Plan: as per ID (4) Abnormal LFTs Assessment & Plan: US abd ordered pending results trend lft's exam with grimace upon abd exam general no worse with RUQ lip / rochelle okay for diet will follow with recs thank you Gallbladder has been removed Common bile duct measures 12 mm in diameter. No intrahepatic biliary ductal dilatation. Liver demonstrates somewhat increased echogenicity, no focal abnormality. Portal vein and hepatic veins are patent. Pancreas is unremarkable. Spleen is unremarkable. Left kidney measures 10.3 cm in length. Right kidney measures 8.7 cm length. Both kidneys demonstrate normal echogenicity, mild cortical thinning. There is no hydronephrosis. No focal abnormality . The aorta is partially obscured. Impression: Absent gallbladder. Dilated extra hepatic ducts are likely related to age and postcholecystectomy state, but downstream obstruction also possible. Consider MRCP if clinically indicated Liver demonstrates diffusely increased echogenicity, consistent with diffuse hepatocellular disease, most likely fatty change.. Mild thinning of the renal cortices. Note incomplete visualization of the abdominal aorta DAILY ESTIMATED NEEDS: Needs based on Obese, cardiac, DM 66kg abw 20-25 kcals/kg 1435-8579 total kcals 1-1.5 g protein/kg 66-99 g total protein 20-25 mL/kg 2659-7995 total fluid mLs NUTRITION DIAGNOSIS: Altered nutrition related lab values r/t clinical status, DM as evidenced by elev BGs (203, 173, 192), pt on long and short acting insulin. CURRENT DIET:[facility] LOW, [facility] chopped PO DIET RECOMMENDATIONS: Maintain CCHO LOW diet (Texture as tolerated or per [employer]) ADDITIONAL RECOMMENDATIONS: 1) Daily calibrated bedscale wt 2) Monitor PO intake and tolerance closely- variable, COVID-19 positive 3) F/up w/ WC eval add MVI x1 4) Monitor BGs w/ long acting and short acting insulin, need for adjustment Jake Rodríguez Apr 07, 2020 14:38
[2020-04-07 16:07] VITALS: BP 119/76
--- NOTE | 2020-04-07 16:26 | General Progress Note ---
Subjective Date patient seen: Apr 07, 2020 Time patient seen: 09:45 Constitutional: Denies: no symptoms, chills, diaphoresis, fever, malaise, weakness, other HEENT: Denies: no symptoms, eye pain, blurred vision, tearing, double vision, ear pain, ear discharge, nose pain, nose congestion, throat pain, throat swelling, mouth pain, mouth swelling, other Cardiovascular: Denies: no symptoms, chest pain, edema, irregular heart rate, lightheadedness, palpitations, syncope, other Respiratory: Denies: no symptoms, cough, orthopnea, shortness of breath, SOB with excertion, SOB at rest, sputum, stridor, wheezing, other Gastrointestinal/Abdominal: Denies: no symptoms, abdomen distended, abdominal pain, black stools, tarry stools, blood in stool, constipated, diarrhea, difficulty swallowing, nausea, poor appetite, poor fluid intake, rectal bleeding, vomiting, other Genitourinary: Denies: no symptoms, burning, discharge, frequency, flank pain, hematuria, incontinence, pain, urgency, other Neurologic/Psychiatric: Denies: no symptoms, anxiety, depressed, emotional problems, headache, numbness, paresthesia, pre-existing deficit, seizure, tingling, tremors, weakness, other Endocrine: Denies: no symptoms, excessive sweating, flushing, intolerance to cold, intolerance to heat, increased hunger, increased thirst, increased urine, unexplained weight gain, unexplained weight loss, other Hematologic/Lymphatic: Denies: no symptoms, anemia, easy bleeding, easy bruising, other Allergies: Coded Allergies: MORPHINE (Verified Allergy, Unknown, 10/27/19) Uncoded Allergies: TAPE (Allergy, Unknown, 10/27/19) Subjective No acute distress No events overnight On RA with O2 sat 97-98% Good appetite Objective Last 24 Hour Vital Signs Date Time Temp Pulse Resp B/P (MAP) Pulse Ox O2 Delivery O2 Flow Rate FiO2 04/07/20 16:07 98.0 66 21 119/76 (90) 97 04/07/20 12:04 97.1 83 19 127/56 (79) 97 04/07/20 08:35 Room Air 04/07/20 08:00 97.2 82 19 128/72 (90) 97 04/07/20 04:00 97.4 75 17 112/60 (77) 94 04/07/20 00:00 97.7 76 18 113/67 (82) 95 04/06/20 21:41 Room Air 04/06/20 20:00 98.1 83 18 115/62 (79) 95 Intake and Output 04/06/20 04/07/20 19:00 07:00 Intake Total 840 ml Output Total 600 ml Balance 240 ml Intake Oral 840 ml Output Urine Total 600 ml Laboratory Tests 04/06/20 16:42: POC Whole Blood Glucose 310H 04/06/20 19:32: POC Whole Blood Glucose 319H 04/07/20 05:26: POC Whole Blood Glucose 149H 04/07/20 08:50: White Blood Count 15.9H, Red Blood Count 4.78, Hemoglobin 13.4, Hematocrit 36.5L , Mean Corpuscular Volume 76L, Mean Corpuscular Hemoglobin 28.1, Mean Corpuscular Hemoglobin Concent 36.7H, Red Cell Distribution Width 14.9H, Platelet Count 184, Mean Platelet Volume 8.5, Neutrophils (%) (Auto) 83.6H, Lymphocytes (%) (Auto) 10.0L, Monocytes (%) (Auto) 5.7, Eosinophils (%) (Auto) 0.2, Basophils (%) (Auto) 0.5, Sodium Level 139, Potassium Level 3.4L, Chloride Level 106, Carbon Dioxide Level 25, Anion Gap 8, Blood Urea Nitrogen 50H, Creatinine 1.0, Estimat Glomerular Filtration Rate 53.1, Glucose Level 130H, Calcium Level 8.9 04/07/20 11:39: POC Whole Blood Glucose [Pending] Height (Feet): 5 Height (Inches): 3.00 Weight (Pounds): 235 General Appearance: no apparent distress EENT: PERRL/EOMI Neck: supple Cardiovascular: normal rate, regular rhythm Respiratory/Chest: lungs clear, normal breath sounds Abdomen: normal bowel sounds, non tender, soft Edema: no edema noted Arm (L), no edema noted Arm (R), no edema noted Leg (L), no edema noted Leg (R), no edema noted Pedal (L), no edema noted Pedal (R), no edema noted Generalized Neurologic: senior instructional designer II-XII grossly normal, alert Skin: warm/dry Assessment/Plan Status: stable Assessment/Plan: #Acute hypoxic respiratory failure-resolved #Covid 19 Pneumonia - contact plus isolation -O2 via NC to keep sats >94%- now weaned off - on RA with O2 sat 97% -Dexamethasone and remdisivir per ID - Pulmonology consult, appreciate recs - ID consult, appreciate recs #UTI #Leukocytosis likely 2' steroid use - E.coli UTI - Continue Ceftriaxone (03/31- 04/06) #CHF -Cardiology consult -follow up TTE --> EF 40% -continue to hold lasix # Elevated LFTs - Hold lipitor for elevated ast/alt #Hyperglycemia 2' Steroid use - Detemir 10U #Depression - Lexapro # Hyponatremia # MARIELY vs MARIELY on CKD- improving -Renal US - no obstructive uropathy - Nephrology consult -dvt ppx: heparin -code: full code Patient is medically stable for discharge. Awaiting placement at SNF. Time spent is 32 minutes with 18 minutes spent with counseling and care coordination. D/w nursing staff. Time of note does not reflect time of encounter. Elise Monreal M.D. Apr 07, 2020 16:26
[2020-04-07 20:00] VITALS: BP 131/74
--- NOTE | 2020-04-07 23:50 | Infectious Diseases Prog Note ---
Assessment/Plan Assessment/Plan ASSESSMENT AND PLAN: 1. e.coli uti, covid-19 infection, chf > pna, leukocytosis likely secondary to steroids - s/p ceftriaxone - dexamethasone - day # 4 now, saturations improved and stable - monitor clinically, hypoxia, labs, and chest x-ray - stable for oral dexamethasone - communicated with Dr. Monreal 2. covid-19 isolation - proper PPE's worn 3. Diabetes. Blood sugar treatment per primary care team. 4. Hyponatremia. 5. Hypertension. Blood pressure treatment per primary care team. 6. Dyslipidemia. 7. Diastolic CHF. 8. Edema. 9. Obesity. 10. Allergies to morphine and tape. 11. Social history negative. 12. Family history is noncontributory. 13. MAR is noted. 14. Case discussed with RN. 15. COVID isolation. 16. Case discussed with Dr. Peña. 17. Notes and records reviewed. Orders were reviewed. Subjective Constitutional: Reports: fatigue; Denies: fever HEENT: Reports: congestion - less Respiratory: Reports: shortness of breath - less Cardiovascular: Denies: chest pain Gastrointestinal/Abdominal: Denies: nausea, vomiting, diarrhea Genitourinary: Reports: other - no cruz Neurologic: Denies: headache Psychiatric: Denies: depression Skin: Denies: rash Hematologic: Denies: bleeding Musculoskeletal: Denies: pain Allergies: Coded Allergies: MORPHINE (Verified Allergy, Unknown, 10/27/19) Uncoded Allergies: TAPE (Allergy, Unknown, 10/27/19) Objective Last 24 Hour Vital Signs Date Time Temp Pulse Resp B/P (MAP) Pulse Ox O2 Delivery O2 Flow Rate FiO2 04/07/20 21:00 Nasal Cannula 2.0 04/07/20 20:00 97.1 83 20 131/74 (93) 95 04/07/20 16:07 98.0 66 21 119/76 (90) 97 04/07/20 12:04 97.1 83 19 127/56 (79) 97 04/07/20 08:35 Room Air 04/07/20 08:00 97.2 82 19 128/72 (90) 97 04/07/20 04:00 97.4 75 17 112/60 (77) 94 04/07/20 00:00 97.7 76 18 113/67 (82) 95 Height (Feet): 5 Height (Inches): 3.00 Weight (Pounds): 235 General Appearance: no acute distress HEENT: normocephalic, atraumatic, anicteric Respiratory/Chest: no respiratory distress, no accessory muscle use, crackles/rales, rhonchi - bilaterally Cardiovascular: normal rate, regular rhythm Abdomen: normal bowel sounds, soft, non tender, no organomegaly, non distended Genitourinary: other - no cruz Extremities: no cyanosis Skin: no rash Neurologic/Psychiatric: detective precinct II-XII grossly normal, alert, responsive Lymphatic: no neck adenopathy Musculoskeletal: no effusion Chest x-ray - 03/31/20 - Procedure: XRAY Chest 1v Indication: Cough Technique: One view of the chest Comparison: 03/29/2020 Findings: Bilateral infiltrates versus edema appears slightly improved since the prior exam. Ossifications in the right perihilar region, left chest pacemaker are again demonstrated. Impression: Interim partial improvement of previously demonstrated bilateral infiltrates versus edema Chest x-ray - 04/06/20 - Procedure: XRAY Chest 1v Indication: Shortness of breath Technique: Single AP view of the chest. Comparison: Chest radiograph Dated 03/31/2020 Findings: The cardiomediastinal silhouette is unchanged in appearance, with persistent cardiomegaly. Unchanged appearance of left approach ICD/pacemaker. Persistent bilateral perihilar airspace opacities. Slight interval worsening of interstitial edema. No new airspace consolidation. No pneumothorax. No increasing pleural effusion. IMPRESSION: Slight interval worsening of interstitial edema. Microbiology Date/Time Source Procedure Growth Status 03/31/20 04:45 Stool Clostridium difficile Toxin Assay - Final Complete 03/30/20 07:30 Nasopharynx SARS-CoV-2 RdRp Gene Assay - Final Complete 03/30/20 00:15 Blood Blood Culture - Final NO GROWTH AFTER 5 DAYS Complete 03/30/20 00:10 Urine,Clean Catch Urine Culture - Final Escherichia Coli Complete 03/30/20 00:00 Rectum - Final NO CARBAPENEM-RESISTANT ENTEROBACTERI... Complete Laboratory Tests Test 04/07/20 05:26 04/07/20 08:50 04/07/20 11:39 04/07/20 21:05 POC Whole Blood Glucose 149 MG/DL (74-106) H Pending 326 MG/DL (74-106) H White Blood Count 15.9 K/UL (4.8-10.8) H Red Blood Count 4.78 M/UL (4.20-5.40) Hemoglobin 13.4 G/DL (12.0-16.0) Hematocrit 36.5 % (37.0-47.0) L Mean Corpuscular Volume 76 FL (80-99) L Mean Corpuscular Hemoglobin 28.1 PG (27.0-31.0) Mean Corpuscular Hemoglobin Concent 36.7 G/DL (32.0-36.0) H Red Cell Distribution Width 14.9 % (11.6-14.8) H Platelet Count 184 K/UL (150-450) Mean Platelet Volume 8.5 FL (6.5-10.1) Neutrophils (%) (Auto) 83.6 % (45.0-75.0) H Lymphocytes (%) (Auto) 10.0 % (20.0-45.0) L Monocytes (%) (Auto) 5.7 % (1.0-10.0) Eosinophils (%) (Auto) 0.2 % (0.0-3.0) Basophils (%) (Auto) 0.5 % (0.0-2.0) Sodium Level 139 MMOL/L (136-145) Potassium Level 3.4 MMOL/L (3.5-5.1) L Chloride Level 106 MMOL/L (98-107) Carbon Dioxide Level 25 MMOL/L (21-32) Anion Gap 8 mmol/L (5-15) Blood Urea Nitrogen 50 mg/dL (7-18) H Creatinine 1.0 MG/DL (0.55-1.30) Estimat Glomerular Filtration Rate 53.1 mL/min (>60) Glucose Level 130 MG/DL (74-106) H Calcium Level 8.9 MG/DL (8.5-10.1) Current Medications Medications (Trade) Dose Ordered Sig/Tiburcio Route PRN Reason Start Time Stop Time Status Last Admin Dose Admin Acetaminophen (Tylenol) 650 mg Q6H PRN ORAL For Pain 03/30/20 10:30 04/29/20 10:29 Albuterol/ Ipratropium (Combivent Respimat) 1 puff Q6HR INH 03/30/20 12:00 04/29/20 11:59 04/07/20 17:14 Dexamethasone Sodium Phosphate (Decadron 10mg/ ml Inj) 6 mg DAILY IV 04/05/20 09:00 04/14/20 08:59 04/07/20 08:34 Dextrose (Dextrose 50%) 25 ml Q30M PRN IV Hypoglycemia 03/30/20 10:30 06/28/20 10:29 Dextrose (Dextrose 50%) 50 ml Q30M PRN IV Hypoglycemia 03/30/20 10:30 06/28/20 10:29 Escitalopram Oxalate (Lexapro) 10 mg DAILY ORAL 03/30/20 10:30 04/29/20 10:29 04/07/20 08:34 Gabapentin (Neurontin) 300 mg THREE TIMES A DAY ORAL 03/30/20 13:00 04/29/20 12:59 04/07/20 17:13 Heparin Sodium (Porcine) (Heparin 5000 units/ml) 5,000 units EVERY 12 HOURS SUBQ 03/30/20 21:00 05/14/20 20:59 04/07/20 08:34 Insulin Aspart (NovoLOG) BEFORE MEALS AND HS SUBQ 03/30/20 11:30 06/28/20 11:29 04/07/20 21:28 Insulin Detemir (Levemir) 10 units DAILY SUBQ 03/30/20 16:00 06/28/20 15:59 04/07/20 08:50 Avelino Puckett MD Apr 07, 2020 23:50
[2020-04-08] VITALS: BP 135/73
[2020-04-08 04:00] VITALS: BP 136/64
[2020-04-08] MEDS: NovoLOG Insulin Flexpen SUBQ SCH ×4 (06:55→21:00)
[2020-04-08] MEDS: dexAMETHasone 10mg/ml Inj IV SCH (08:21)
[2020-04-08] MEDS: Heparin 5000 units/ml inj SUBQ SCH ×2 (08:22→20:45)
[2020-04-08] MEDS: Levemir Flexpen SUBQ SCH (08:26)
[2020-04-08 08:30] VITALS: BP 138/63
--- NOTE | 2020-04-08 10:30 | Nephrology Progress Note ---
Assessment/Plan Plan #Hyponatremia- hypervolumic vs SIADH in the setting of covid #acute on chronic diastolic CHF #COVID infection #HTN #DM #HLD #Obesity - ID eval - pul eval - card eval - HOLD lasix 20 IV BID - continue IV antibiotics per ID - HOLD lisinopril 10mg daily - Bg control - monitor electrolytes - avoid nephrotoxins time spent 65 mins Subjective ROS Limited/Unobtainable: No Subjective BP stable Cr down to 1.2 Breathing stable on RA Objective Objective Last 24 Hour Vital Signs Date Time Temp Pulse Resp B/P (MAP) Pulse Ox O2 Delivery O2 Flow Rate FiO2 04/08/20 08:45 Nasal Cannula 2.0 04/08/20 08:30 98.3 78 20 138/63 (88) 93 04/08/20 04:00 96.3 79 20 136/64 (88) 94 04/08/20 00:00 96.2 82 20 135/73 (93) 97 04/07/20 21:00 Nasal Cannula 2.0 04/07/20 20:00 97.1 83 20 131/74 (93) 95 04/07/20 16:07 98.0 66 21 119/76 (90) 97 04/07/20 12:04 97.1 83 19 127/56 (79) 97 Intake and Output 04/07/20 04/08/20 19:00 07:00 Intake Total 558 ml Output Total 2800 ml 500 ml Balance -2242 ml -500 ml Intake Oral 558 ml Output Urine Total 2800 ml 500 ml # Bowel Movements 2 1 Laboratory Tests 04/07/20 11:39: POC Whole Blood Glucose [Pending] 04/07/20 21:05: POC Whole Blood Glucose 326H 04/08/20 04:54: POC Whole Blood Glucose 177H Height (Feet): 5 Height (Inches): 3.00 Weight (Pounds): 235 Kell Adorno M.D. Apr 08, 2020 10:30
[2020-04-08 12:00] VITALS: BP 147/74
--- NOTE | 2020-04-08 12:43 | Pulmonology Progress Note ---
Subjective ROS Limited/Unobtainable: No Interval Events: None new Constitutional: Reports: fatigue; Denies: fever HEENT: Repors: no symptoms Respiratory: Reports: no symptoms Cardiovascular: Reports: no symptoms Gastrointestinal/Abdominal: Denies: nausea, vomiting, diarrhea Genitourinary: Reports: no symptoms Neurologic: Reports: no symptoms Psychiatric: Denies: depression Skin: Denies: rash Musculoskeletal: Denies: pain Allergies: Coded Allergies: MORPHINE (Verified Allergy, Unknown, 10/27/19) Uncoded Allergies: TAPE (Allergy, Unknown, 10/27/19) Objective Last 24 Hour Vital Signs Date Time Temp Pulse Resp B/P (MAP) Pulse Ox O2 Delivery O2 Flow Rate FiO2 04/08/20 08:45 Nasal Cannula 2.0 04/08/20 08:30 98.3 78 20 138/63 (88) 93 04/08/20 04:00 96.3 79 20 136/64 (88) 94 04/08/20 00:00 96.2 82 20 135/73 (93) 97 04/07/20 21:00 Nasal Cannula 2.0 04/07/20 20:00 97.1 83 20 131/74 (93) 95 04/07/20 16:07 98.0 66 21 119/76 (90) 97 Intake and Output 04/07/20 04/08/20 19:00 07:00 Intake Total 558 ml Output Total 2800 ml 500 ml Balance -2242 ml -500 ml Intake Oral 558 ml Output Urine Total 2800 ml 500 ml # Bowel Movements 2 1 Objective 04/08/2020 saturating 96% on 2 lpm NC 04/07/2020 Saturating well on RA; CXR- Persistent bilateral perihilar airspace opacities. Slight interval worsening of interstitial edema. 04/06/2020 96% on RA; CXR pending 04/05/2020 Saturating 97% on RA; renal US reveals no obstructive uropathy 04/04/2020 saturating 94% on RA; x1 loose BM overnight per PM RN, now resolved; C diff neg; renal US pending 04/03/2020 saturating 92% on RA pt alert; saturating 96% on RA General Appearance: no acute distress HEENT: normocephalic Respiratory: chest wall non-tender, lungs clear Cardiovascular: normal peripheral pulses, JVD - mild Abdomen: normal bowel sounds Genitourinary: other - female external cath Extremities: no cyanosis Laboratory Tests 04/07/20 21:05: POC Whole Blood Glucose 326H 04/08/20 04:54: POC Whole Blood Glucose 177H Current Medications Medications (Trade) Dose Ordered Sig/Tiburcio Route PRN Reason Start Time Stop Time Status Last Admin Dose Admin Acetaminophen (Tylenol) 650 mg Q6H PRN ORAL For Pain 03/30/20 10:30 04/29/20 10:29 Albuterol/ Ipratropium (Combivent Respimat) 1 puff Q6HR INH 03/30/20 12:00 04/29/20 11:59 04/08/20 11:58 Dexamethasone Sodium Phosphate (Decadron 10mg/ ml Inj) 6 mg DAILY IV 04/05/20 09:00 04/14/20 08:59 04/08/20 08:21 Dextrose (Dextrose 50%) 25 ml Q30M PRN IV Hypoglycemia 03/30/20 10:30 06/28/20 10:29 Dextrose (Dextrose 50%) 50 ml Q30M PRN IV Hypoglycemia 03/30/20 10:30 06/28/20 10:29 Escitalopram Oxalate (Lexapro) 10 mg DAILY ORAL 03/30/20 10:30 04/29/20 10:29 04/08/20 08:22 Gabapentin (Neurontin) 300 mg THREE TIMES A DAY ORAL 03/30/20 13:00 04/29/20 12:59 04/08/20 12:01 Heparin Sodium (Porcine) (Heparin 5000 units/ml) 5,000 units EVERY 12 HOURS SUBQ 03/30/20 21:00 05/14/20 20:59 04/08/20 08:22 Insulin Aspart (NovoLOG) BEFORE MEALS AND HS SUBQ 03/30/20 11:30 06/28/20 11:29 04/08/20 11:59 Insulin Detemir (Levemir) 10 units DAILY SUBQ 03/30/20 16:00 06/28/20 15:59 04/08/20 08:26 Assessment/Plan Assessment/Plan 1. COVID-19 pneumonia. - defer the use of remdesivir to ID specialist. - 03/31/2020 CXR demonstrates partial improvement of infiltrates vs edema - 04/06/2020 CXR Persistent bilateral perihilar airspace opacities. Slight int erval worsening of interstitial edema. 2. History of hypoxemia. - Currently normoxemic on 2 lpm NC 3. Diabetes mellitus. - on glucose-lowering agents 4. Hx of Hypertension. - per primary MD 5. Hyperlipidemia. 6. Asthma. - On combivent 7. DVT prophylaxis with heparin subcu. 8. Acute renal failure; improving - BUN 76 -> 87 -> 74 -> 62 -> 51 -> 50 - Cr 2.2 -> 2.6 -> 1.6 -> 1.2 -> 1.1 - K 3.1 -> 3.5 -> 3.4 - Bolus of 250 ml NS given 04/01/2020 am by renal - hold off nephrotoxins per renal - s/p Garcia cath per Dr. Peña - now on female external cath Cont monitor stuart lares planning per rifle case repairer We will follow closely The care for this patient was discussed with my supervising physician Time spent for this case was approximately 31 minutes Edwin Quinn Apr 08, 2020 12:43
--- NOTE | 2020-04-08 12:52 | General Progress Note ---
Subjective Constitutional: Denies: no symptoms, chills, diaphoresis, fever, malaise, weakness, other HEENT: Denies: no symptoms, eye pain, blurred vision, tearing, double vision, ear pain, ear discharge, nose pain, nose congestion, throat pain, throat swelling, mouth pain, mouth swelling, other Cardiovascular: Denies: no symptoms, chest pain, edema, irregular heart rate, lightheadedness, palpitations, syncope, other Respiratory: Denies: no symptoms, cough, orthopnea, shortness of breath, SOB with excertion, SOB at rest, sputum, stridor, wheezing, other Gastrointestinal/Abdominal: Denies: no symptoms, abdomen distended, abdominal pain, black stools, tarry stools, blood in stool, constipated, diarrhea, difficulty swallowing, nausea, poor appetite, poor fluid intake, rectal bleeding, vomiting, other Genitourinary: Denies: no symptoms, burning, discharge, frequency, flank pain, hematuria, incontinence, pain, urgency, other Neurologic/Psychiatric: Denies: no symptoms, anxiety, depressed, emotional problems, headache, numbness, paresthesia, pre-existing deficit, seizure, tingling, tremors, weakness, other Endocrine: Denies: no symptoms, excessive sweating, flushing, intolerance to cold, intolerance to heat, increased hunger, increased thirst, increased urine, unexplained weight gain, unexplained weight loss, other Hematologic/Lymphatic: Denies: no symptoms, anemia, easy bleeding, easy bruising, other Allergies: Coded Allergies: MORPHINE (Verified Allergy, Unknown, 10/27/19) Uncoded Allergies: TAPE (Allergy, Unknown, 10/27/19) Subjective VSS NAEO 2L O2 overnight, removed Oxygen at bedside and O2 sat >92% Awaiting SNF placement Objective Last 24 Hour Vital Signs Date Time Temp Pulse Resp B/P (MAP) Pulse Ox O2 Delivery O2 Flow Rate FiO2 04/08/20 08:45 Nasal Cannula 2.0 04/08/20 08:30 98.3 78 20 138/63 (88) 93 04/08/20 04:00 96.3 79 20 136/64 (88) 94 04/08/20 00:00 96.2 82 20 135/73 (93) 97 04/07/20 21:00 Nasal Cannula 2.0 04/07/20 20:00 97.1 83 20 131/74 (93) 95 04/07/20 16:07 98.0 66 21 119/76 (90) 97 Intake and Output 04/07/20 04/08/20 19:00 07:00 Intake Total 558 ml Output Total 2800 ml 500 ml Balance -2242 ml -500 ml Intake Oral 558 ml Output Urine Total 2800 ml 500 ml # Bowel Movements 2 1 Laboratory Tests 04/07/20 21:05: POC Whole Blood Glucose 326H 04/08/20 04:54: POC Whole Blood Glucose 177H Height (Feet): 5 Height (Inches): 3.00 Weight (Pounds): 235 General Appearance: alert, other - hard of hearing EENT: PERRL/EOMI Neck: supple Cardiovascular: normal rate, regular rhythm Respiratory/Chest: lungs clear, normal breath sounds Abdomen: normal bowel sounds, non tender, soft Neurologic: pump runner II-XII grossly normal, alert Skin: warm/dry Assessment/Plan Status: stable Assessment/Plan: #Acute hypoxic respiratory failure-resolved #Covid 19 Pneumonia - contact plus isolation -O2 via NC to keep sats >94%- try to wean off - on RA with O2 sat >92% -Dexamethasone and remdisivir per ID - Pulmonology consult, appreciate recs - ID consult, appreciate recs #UTI #Leukocytosis likely 2' steroid use - E.coli UTI - Continue Ceftriaxone (03/31- 04/06) #CHF -Cardiology consult -follow up TTE --> EF 40% -continue to hold lasix # Elevated LFTs - Hold lipitor for elevated ast/alt #Hyperglycemia 2' Steroid use - Detemir 10U #Depression - Lexapro # Hyponatremia # MARIELY vs MARIELY on CKD- improving -Renal US - no obstructive uropathy - Nephrology consult -dvt ppx: heparin -code: full code Patient is medically stable for discharge. Awaiting placement at SNF. Time spent is 33 minutes with 16 minutes spent with counseling and care coordination. D/w nursing staff. Time of note does not reflect time of encounter. Elise Monreal M.D. Apr 08, 2020 12:52
--- NOTE | 2020-04-08 14:31 | Cardiac Electrophysiology PN ---
Assessment/Plan Assessment/Plan 1. Congestive heart failure EF 40% with BNP of 564. Off Lasix as getting ARF. 2. Hypertension . On p.r.n. hydralazine. 3. S/P Medtronic pacer 2013. Will interrogate after Covid is negative 4. COVID pneumonia, on dexamethasone. 5. Diabetes, on insulin. 6. Hyperlipidemia, on Lipitor. 7. Acute renal failure with BUN/CR 87/2.6>>> 51/1.1 DW RN Subjective Subjective In Covid isolation. EF 40-45%. No events off tel. Alert on 2 liter NC Objective Last 24 Hour Vital Signs Date Time Temp Pulse Resp B/P (MAP) Pulse Ox O2 Delivery O2 Flow Rate FiO2 04/08/20 12:00 98.4 84 20 147/74 (98) 97 04/08/20 08:45 Nasal Cannula 2.0 04/08/20 08:30 98.3 78 20 138/63 (88) 93 04/08/20 04:00 96.3 79 20 136/64 (88) 94 04/08/20 00:00 96.2 82 20 135/73 (93) 97 04/07/20 21:00 Nasal Cannula 2.0 04/07/20 20:00 97.1 83 20 131/74 (93) 95 04/07/20 16:07 98.0 66 21 119/76 (90) 97 Intake and Output 04/07/20 04/08/20 19:00 07:00 Intake Total 558 ml Output Total 2800 ml 500 ml Balance -2242 ml -500 ml Intake Oral 558 ml Output Urine Total 2800 ml 500 ml # Bowel Movements 2 1 Laboratory Tests Test 04/07/20 21:05 04/08/20 04:54 POC Whole Blood Glucose 326 MG/DL (74-106) H 177 MG/DL (74-106) H Objective HEAD AND NECK: Some mild JVD. LUNGS: Coarse rhonchi. CARDIOVASCULAR: Regular S1 and S2 with no gallop or murmur.Pacer in Left subclavian. ABDOMEN: Soft. EXTREMITIES: Mild to moderate edema. Rafiq Cote MD Apr 08, 2020 14:31
[2020-04-08 16:01] VITALS: BP 121/60
--- NOTE | 2020-04-08 16:40 | Surgery Progress Note ---
Surgery Progress Note Subjective Symptoms: improved, tolerating diet, passing flatus Objective Last 24 Hour Vital Signs Date Time Temp Pulse Resp B/P (MAP) Pulse Ox O2 Delivery O2 Flow Rate FiO2 04/08/20 16:01 98.9 79 20 121/60 (80) 97 04/08/20 12:00 98.4 84 20 147/74 (98) 97 04/08/20 08:45 Nasal Cannula 2.0 04/08/20 08:30 98.3 78 20 138/63 (88) 93 04/08/20 04:00 96.3 79 20 136/64 (88) 94 04/08/20 00:00 96.2 82 20 135/73 (93) 97 04/07/20 21:00 Nasal Cannula 2.0 04/07/20 20:00 97.1 83 20 131/74 (93) 95 I&O Intake and Output 04/07/20 04/08/20 19:00 07:00 Intake Total 558 ml Output Total 2800 ml 500 ml Balance -2242 ml -500 ml Intake Oral 558 ml Output Urine Total 2800 ml 500 ml # Bowel Movements 2 1 Dressing: saturated Cardiovascular: RSR Respiratory: decreased breath sounds Abdomen: non-tender, present bowel sounds, non-distended Extremities: no tenderness, no cyanosis Laboratory Tests Test 04/07/20 21:05 04/08/20 04:54 POC Whole Blood Glucose 326 MG/DL (74-106) H 177 MG/DL (74-106) H Plan Problems: (1) Pneumonia (2) Coronavirus infection (3) COVID-19 Assessment & Plan: as per ID (4) Abnormal LFTs Assessment & Plan: US abd ordered pending results trend lft's exam with grimace upon abd exam general no worse with RUQ lip / rochelle okay for diet will follow with recs thank you Gallbladder has been removed Common bile duct measures 12 mm in diameter. No intrahepatic biliary ductal dilatation. Liver demonstrates somewhat increased echogenicity, no focal abnormality. Portal vein and hepatic veins are patent. Pancreas is unremarkable. Spleen is unremarkable. Left kidney measures 10.3 cm in length. Right kidney measures 8.7 cm length. Both kidneys demonstrate normal echogenicity, mild cortical thinning. There is no hydronephrosis. No focal abnormality . The aorta is partially obscured. Impression: Absent gallbladder. Dilated extra hepatic ducts are likely related to age and postcholecystectomy state, but downstream obstruction also possible. Consider MRCP if clinically indicated Liver demonstrates diffusely increased echogenicity, consistent with diffuse hepatocellular disease, most likely fatty change.. Mild thinning of the renal cortices. Note incomplete visualization of the abdominal aorta DAILY ESTIMATED NEEDS: Needs based on Obese, cardiac, DM 66kg abw 20-25 kcals/kg 4016-6951 total kcals 1-1.5 g protein/kg 66-99 g total protein 20-25 mL/kg 9306-7980 total fluid mLs NUTRITION DIAGNOSIS: Altered nutrition related lab values r/t clinical status, DM as evidenced by elev BGs (203, 173, 192), pt on long and short acting insulin. CURRENT DIET:CCHO LOW, mech soft chopped PO DIET RECOMMENDATIONS: Maintain CCHO LOW diet (Texture as tolerated or per BAILER TENDERS SUPERVISOR) ADDITIONAL RECOMMENDATIONS: 1) Daily calibrated bedscale wt 2) Monitor PO intake and tolerance closely- variable, COVID-19 positive 3) F/up w/ WC eval add MVI x1 4) Monitor BGs w/ long acting and short acting insulin, need for adjustment Sacral DTPI with surrounding non-Blanchable erythema(L)6cm x (W)8.5cm. Base of Pressure Injury is maroon and indurated,surrounding non-blanchable erythema which extends to R and L gluteal cheeks and L ischial tuberosity. R ischium previously documented as non-blanchable is now a DTPI (L)3.3cm x (W)3.5cm. Base of wound is maroon and indurated with surrounding non-blanchable erythema along borders and periwound. Pt noted to have an area of non-blanchable erythema perineum,with indentation at medial upper R thgih consistent with Placement of purewick. Purewick was removed and Primary Nurse was informed Purewick removed. L Heel is boggy with non-blanchable erythema. R heel is soft but blanchable. Tx.Plan:Apply Moisture Barrier Paste to Sacrum. Cover with Optifoam drsg. Change every 3 days and prn. Apply Moisture Barrier to R Ischium. Cover with Optifoam drsg. Change every 3 days and prn. Apply Moisture Barrier Paste to L Ischium. Cover with Optifoam drsg. Change every 3 days and prn. Recommend discontinuing Purewick and place absorbent pad to minimize exposure to moisture Apply Cavilon Skin Barrier to both heels. Cover each heel with Optifoam drsg. Change every 7 days and prn. Repositioned at least every 2hours or as tolerated. Off-load heels with Pillow Jake Rodríguez Apr 08, 2020 16:40
[2020-04-08 20:00] VITALS: BP 118/86
== END 2020-04-09 | DRG 177 ==
LOC: EDBD 21:32 → EMR 22:20 → EDBEDREQ 03-30 07:03 → 2E 03-30 07:18 → 4E 04-02 14:07
DX: U07.1 COVID-19 (principal); J12.89 Other viral pneumonia; J96.01 Acute respiratory failure with hypoxia; I50.33 Acute on chronic diastolic (congestive) heart failure; E87.1 Hypo-osmolality and hyponatremia; Z68.41 Body mass index [BMI] 40.0-44.9, adult; N17.9 Acute kidney failure, unspecified; N39.0 Urinary tract infection, site not specified; I13.0 Hypertensive heart and chronic kidney disease with heart failure and stage 1 through stage 4 chronic kidney disease, or unspecified chronic kidney disease; E66.9 Obesity, unspecified; Z88.6 Allergy status to analgesic agent; E11.22 Type 2 diabetes mellitus with diabetic chronic kidney disease; N18.9 Chronic kidney disease, unspecified; Z95.0 Presence of cardiac pacemaker; J45.909 Unspecified asthma, uncomplicated; B96.20 Unspecified Escherichia coli [E. coli] as the cause of diseases classified elsewhere
CPT/HCPCS: 36415; 71045; 76700; 76770; 80048; 80053; 81003; 82150; 82550; 82553; 82728; 82962; 83605; 83615; 83690; 83735; 83880; 84100; 84484; 85007; 85025; 85379; 85610; 85651; 85730; 86140; 87040; 87081; 87086; 87181; 87324; 93005; 93306; 96365; 96375; 99285; J1815; J8499; S5561; U0002